=== PATIENT | female | born 1965 | race Caucasian/White ===

== ENCOUNTER 2019-09-03 04:11 | Emergency (ER) | payer SELFPAY ==
--- NOTE | 2019-09-03 06:09 | RADIOLOGY REPORT (SQ) ---
EXAM DESCRIPTION: X-ray two view chest. CLINICAL HISTORY: 53 years Female, cough, SOB COMPARISON: 03/26/2013 TECHNIQUE: PA and Lateral views of the chest performed on 09/03/2019 at 5:22 AM FINDINGS: The lungs are well expanded and are clear. The costophrenic sulci are clear. There is no evidence of a pneumothorax. The cardiac silhouette is normal in size. The mediastinal contours are normal. No acute osseous abnormalities are identified. No focal soft tissue abnormalities are identified. IMPRESSION: No evidence of acute intrathoracic disease.
[2019-09-03] MEDS ORDERED: BENZONATATE 100 MG CAPSULE PO ONE (06:31)
[2019-09-03 06:44] VITALS: BP 152/90
--- NOTE | 2019-09-03 06:44 | EKG REPORT ---
SEVERITY:- NORMAL ECG - SINUS RHYTHM : Confirmed by: Eugene Ann MD 03-Sep-2019 06:43:50
--- NOTE | 2019-09-03 14:52 | ER Document Report ---
Entered by MADDIE CAMPOS SCRIBE 09/03/19 0625 Acting as scribe for:ROSE MARIE MIKE MD ED General - General Chief Complaint: Shortness Of Breath Stated Complaint: TROUBLE BREATHING Time Seen by Provider: 09/03/19 05:10 Primary Care Provider: SANA HINES JR, PA [Primary Care Provider] - Follow up as needed Mode of Arrival: Ambulatory Information source: Patient, [facility] Records Notes: This 53 year old female patient presents to the ED today with complaints of shortness of breath since x1 day ago. Patient reports associated reproducible ch est pain and productive cough. Patient states that she brought up yellow-brown phlegm when she coughed once yesterday. Patient has not received a flu vaccine this year. TRAVEL OUTSIDE OF THE [place] IN LAST 30 DAYS: No - Related Data Allergies/Adverse Reactions: iodine [Iodine] Allergy (Severe, Verified 08/22/13 17:08) Sulfa (Sulfonamide Antibiotics) Allergy (Severe, Verified 08/22/13 17:08) Home Medications: albuterol inhaler. estrogen Past Medical History - General Information source: Patient, [facility] Records - Social History Smoking Status: Never Smoker Cigarette use (# per day): No Frequency of alcohol use: Occasional Family History: Reviewed & Not Pertinent Patient has suicidal ideation: No Patient has homicidal ideation: No Pulmonary Medical History: Reports: Hx Bronchitis - Asthmatic Broncitis occasionally, Hx Pneumonia Neurological Medical History: Reports: Hx Migraine Psychiatric Medical History: Reports: Hx Depression Past Surgical History: Reports: Hx Hysterectomy, Hx Orthopedic Surgery - Ankle - Immunizations Hx Diphtheria, Pertussis, Tetanus Vaccination: Yes Hx Pneumococcal Vaccination: 06/22/10 Review of Systems - Review of Systems Constitutional: No symptoms reported EENT: No symptoms reported Cardiovascular: See HPI, Chest pain - reproducible Respiratory: See HPI, Short of breath Gastrointestinal: No symptoms reported Genitourinary: No symptoms reported Female Genitourinary: No symptoms reported Musculoskeletal: No symptoms reported Skin: No symptoms reported Hematologic/Lymphatic: No symptoms reported Neurological/Psychological: No symptoms reported -: Yes All other systems reviewed and negative Physical Exam - Vital signs Vitals: Temp Pulse BP Pulse Ox 97.9 F 97 164/91 H 97 09/03/19 04:28 09/03/19 04:28 09/03/19 04:28 09/03/19 04:28 - General General appearance: Alert In distress: None - HEENT Head: Normocephalic, Atraumatic Eyes: Normal Pupils: PERRL - Respiratory Respiratory status: No respiratory distress Chest status: Tender - anterior chest wall tenderness with palpation Breath sounds: Rhonchi. No: Wheezing Chest palpation: Normal - Cardiovascular Rhythm: Regular Heart sounds: Normal auscultation Murmur: No - Abdominal Inspection: Normal Distension: No distension Bowel sounds: Normal Tenderness: Nontender Organomegaly: No organomegaly - Back Back: Normal, Nontender - Extremities General upper extremity: Normal inspection General lower extremity: Normal inspection - Neurological Neuro grossly intact: Yes - Psychological Associated symptoms: Normal affect, Normal mood - Skin Skin Temperature: Warm Skin Moisture: Dry Skin Color: Normal Course - Vital Signs Vital signs: Temp Pulse Resp BP Pulse Ox 98.0 F 90 17 152/90 H 97 09/03/19 06:43 09/03/19 06:43 09/03/19 06:43 09/03/19 06:43 09/03/19 06:43 Discharge - Discharge Clinical Impression: Viral upper respiratory tract infection with cough Condition: Stable Disposition: HOME, SELF-CARE Additional Instructions: Upper Respiratory Illness You have a viral infection of the respiratory passages -- a "cold." This common infection causes nasal congestion, drainage, and often sore throat and cough. It is caused by a virus and is highly contagious. The disease usually lasts 2 weeks or more, though the worst symptoms are usually over in 3 or 4 days. There is no "cure" for the viral infection -- it must run its course. If there is a complication, such as bacterial infection in the nose, sinuses, middle ear, or bronchial tubes, antibiotics may be required, but antibiotics won't affect the virus. If you smoke, you should STOP!! Drink plenty of fluids. A humidifier may help. An expectorant medication or decongestant may make you more comfortable. Use acetaminophen or ibuprofen for fever or aches. See the doctor if fever persists over two or three days, if there is any significant worsening of your symptoms, or if you simply fail to improve as expected. High Blood Pressure When your blood pressure was taken today it was elevated. The patient has been informed that they may have pre-hypertension or Hypertension based on a blood pressure reading in the emergency department. I recommend that the patient call the primary care provider listed on their discharge instructions or a physician of their choice this week to arrange follow up for further evaluation of possible pre-hypertension or Hypertension. Sometimes, stress or illness causes a temporary elevation of your blood pressure. We suggest that you get your blood pressure measured three more times during the next few days to see if this is more than a temporary abnormality. If your blood pressure is greater than 150/90 on each occasion, you must have t reatment. Some simple things you can do to help are: If you have blood pressure medicine but aren't using it regularly, start taking it again. Get some aerobic exercise for at least 20 minutes on a daily basis. (See your doctor before beginning a new exercise program.) Eat a low-fat diet. Lose excess weight. Avoid salty foods and avoid adding salt to any of the foods you eat. Avoid diet pills, decongestants, "energizing" herbs, and other medicines that elevate blood pressure. If left untreated, hypertension greatly enhances your risk for developing heart disease and strokes. Please don't ignore this problem. Take the Tessalon Perles as prescribed to help control your cough. Additionally, try the generic version of Delsym DM to help suppress your cough. That medication also contains something similar to Mucinex to help loosen up mucus. Drink plenty of fluids and get plenty of rest. Take Tylenol and ibuprofen for any fevers, aches or pains. Your blood pressure was elevated today. That may be due to the stress of illness, or you may have high blood pressure. You should check your blood pressure regularly for the next several days and if it remains elevated, then you should see your primary care provider to discuss treatment. Follow-up with your primary care provider if your upper respiratory tract infection symptoms are not improving, or if your blood pressure stays elevated. RETURN TO THE EMERGENCY ROOM IF ANY NEW OR WORSENING SYMPTOMS. Prescriptions: Benzonatate [Tessalon Perles 100 mg Capsule] 100 mg PO ASDIR PRN #30 capsule PRN Reason: Referrals: FLORA SHAFER,EMMIE HODO [Primary Care Provider] - Follow up as needed Scribe Attestation: 09/03/19 06:26 I personally performed the services described in the documentation, reviewed and edited the documentation which was dictated to the scribe in my presence, and it accurately records my words and actions. I personally performed the services described in the documentation, reviewed and edited the documentation which was dictated to the scribe in my presence, and it accurately records my words and actions.
== END 2019-09-03 06:44 | disposition home or self-care (01) ==
LOC: ER 04:11
DX: J06.9 Acute upper respiratory infection, unspecified (principal); R06.02 Shortness of breath; R07.9 Chest pain, unspecified; Z88.2 Allergy status to sulfonamides; Z90.710 Acquired absence of both cervix and uterus
CPT/HCPCS: 71046; 93005; 93010; 99283

== ENCOUNTER 2019-09-23 19:04 | Inpatient (IN) | payer OTHER ==
[2019-09-23 19:38] LABS: ABSOLUTE LYMPHOCYTES (AUTO) 1.8 10^3/uL (0.5-4.7); ABSOLUTE MONOCYTES (AUTO) 0.7 10^3/uL (0.1-1.4); ABSOLUTE NEUT (AUTO) 6.7 10^3/uL (1.7-8.2); BASOPHILS % (AUTO) 0.5 % (0-2); EOSINOPHILS % (AUTO) 0.3 % (0-6); HEMATOCRIT 38.9 % (36.0-47.0); HEMOGLOBIN 13.5 g/dL (12.0-15.5); LYMPHOCYTES % (AUTO) 19.9 % (13-45); MEAN CORPUSCULAR HEMOGLOBIN 35.7 pg (27.0-33.4); MEAN CORPUSCULAR HGB CONC 34.6 g/dL (32.0-36.0); MEAN CORPUSCULAR VOLUME 103 fl (80-97); MONOCYTES % (AUTO) 7.2 % (3-13); PLATELET COUNT 211 10^3/uL (150-450); RED BLOOD COUNT 3.77 10^6/uL (3.72-5.28); SEGMENTED NEUTROPHILS % (AUTO) 72.1 % (42-78); TOTAL CELLS COUNTED % (AUTO) 100 %; WHITE BLOOD COUNT 9.3 10^3/uL (4.0-10.5)
--- NOTE | 2019-09-23 19:43 | ER Document Report ---
ED Medical Screen (RME) - General Chief Complaint: Vomiting Stated Complaint: VOMITING Time Seen by Provider: 09/23/19 19:38 Primary Care Provider: SANA HINES JR, PA [Primary Care Provider] - Follow up as needed Mode of Arrival: Medic Information source: Patient Notes: Patient presents emergency department via EMS for complaints of vomiting all day. She reports symptoms started 0500 this morning. She did go next-door to her neighbors to ask her to take her to the emergency department. Upon arrival to her neighbor her neighbor said she could barely speak she was having trouble breathing so they gave her 3 breathing treatments. Denies fever although tyrel cabrera feels like she is hot. She reports she did not receive the flu vaccine. She denies chest pain. I have greeted and performed a rapid initial assessment of this patient. A comprehensive ED assessment and evaluation of the patient, analysis of test results and completion of the medical decision making process will be conducted by additional ED providers. TRAVEL OUTSIDE OF THE [place] IN LAST 30 DAYS: No - Related Data Allergies/Adverse Reactions: iodine [Iodine] Allergy (Severe, Verified 08/22/13 17:08) Sulfa (Sulfonamide Antibiotics) Allergy (Severe, Verified 08/22/13 17:08) Past Medical History - Past Medical History Cardiac Medical History: Denies: Hx Coronary Artery Disease, Hx Heart Attack, Hx Hypertension Pulmonary Medical History: Reports: Hx Bronchitis - Asthmatic Broncitis occasionally, Hx Pneumonia Denies: Hx Asthma, Hx COPD Neurological Medical History: Reports: Hx Migraine. Denies: Hx Cerebrovascular Accident, Hx Seizures Musculoskeltal Medical History: Denies Hx Arthritis Psychiatric Medical History: Reports: Hx Depression Past Surgical History: Reports: Hx Hysterectomy, Hx Orthopedic Surgery - Ankle. Denies: Hx Pacemaker - Immunizations Hx Diphtheria, Pertussis, Tetanus Vaccination: Yes Course - Laboratory Result Diagrams: 09/23/19 19:15 09/23/19 19:15 Laboratory results interpreted by me: 09/23/19 19:15 MCV 103 H MCH 35.7 H Doctor's Discharge - Discharge Referrals: SANA HINES JR, PA [Primary Care Provider] - Follow up as needed
[2019-09-23 20:01] LABS: ALBUMIN 3.4 g/dL (3.5-5.0); ALKALINE PHOSPHATASE 238 U/L (38-126); ANION GAP 17 (5-19); ASPARTATE AMINO TRANSFERASE 198 U/L (14-36); BILIRUBIN,DIRECT 0.3 mg/dL (0.0-0.4); BILIRUBIN,TOTAL 0.8 mg/dL (0.2-1.3); BLOOD UREA NITROGEN 11 mg/dL (7-20); CALCIUM 8.2 mg/dL (8.4-10.2); CARBON DIOXIDE 18 mmol/L (22-30); CHLORIDE 97 mmol/L (98-107); GLUCOSE 120 mg/dL (75-110); TOTAL PROTEIN 6.5 g/dL (6.3-8.2)
--- NOTE | 2019-09-23 20:52 | RADIOLOGY REPORT (SQ) ---
EXAM DESCRIPTION: CLINICAL HISTORY: 53 years Female, cough COMPARISON: 09/03/2019. FINDINGS: Cardiomediastinal silhouette is not enlarged. No suspicious acute lung pleural bone abnormalities. IMPRESSION: No acute findings.
[2019-09-23] MEDS ORDERED: NORMAL SALINE 1000 ML 1,000 ML with POTASSIUM CHLORIDE 20 MEQ, MAGNESIUM SULFATE 8 MEQ,... IV PRN ×5 (21:06)
[2019-09-23] MEDS ORDERED: METOCLOPRAMIDE HCL INJ/PF 10 MG/2 ML SDV IV ONE (21:11)
[2019-09-23 21:16] LABS: INTERNATIONAL RATION (INR) 0.97; PROTHROMBIN TIME 12.9 SEC (11.4-15.4)
[2019-09-23 21:17] LABS: PARTIAL THROMBOPLASTIN TIME 31.1 SEC (23.5-35.8)
[2019-09-23] MEDS ORDERED: LORAZEPAM INJ 2 MG/1 ML VIAL IV ONE ×2 (21:18→22:46)
--- NOTE | 2019-09-23 21:18 | ER Document Report ---
ED General - General Chief Complaint: Vomiting Stated Complaint: VOMITING Time Seen by Provider: 09/23/19 19:38 Primary Care Provider: SANA HINES JR, PA [NO LOCAL MD] - Follow up as needed Mode of Arrival: Medic TRAVEL OUTSIDE OF THE [place] IN LAST 30 DAYS: No - HPI Notes: This is a 89-[id number]-year-old female with multiple prior visits here for manjinder ulises now presenting with a chief complaint of vomiting for the last 12 hours associated with rapid heart rate, persistent nausea, generalized weakness, muscle cramping and shortness of breath. She was evasive when I asked her about recent alcohol consumption but says she is not had anything to drink today. She denies any drug abuse. She states she is a non-smoker. She reports a remote history of treatment for DVT but is not currently on any type of anticoagulant medication. She denies any prior history of PE. She denies any cardiac history. She denies fever. She denies sputum production. She denies hemoptysis. Patient denies any suicidal/homicidal ideation. She denies hallucinations. - Related Data Allergies/Adverse Reactions: iodine [Iodine] Allergy (Severe, Verified 08/22/13 17:08) Sulfa (Sulfonamide Antibiotics) Allergy (Severe, Verified 08/22/13 17:08) Home Medications: estrogen Past Medical History - General Information source: Patient - Social History Smoking Status: Current Some Day Smoker Chew tobacco use (# tins/day): No Frequency of alcohol use: Heavy Drug Abuse: None Family History: Reviewed & Not Pertinent Patient has suicidal ideation: No Patient has homicidal ideation: No - Past Medical History Cardiac Medical History: Denies: Hx Coronary Artery Disease, Hx Heart Attack, Hx Hypertension Pulmonary Medical History: Reports: Hx Bronchitis - Asthmatic Broncitis occasionally, Hx Pneumonia Denies: Hx Asthma, Hx COPD Neurological Medical History: Reports: Hx Migraine. Denies: Hx Cerebrovascular Accident, Hx Seizures Musculoskeletal Medical History: Denies Hx Arthritis Psychiatric Medical History: Reports: Hx Depression, Other - History of alcohol abuse Past Surgical History: Reports: Hx Hysterectomy, Hx Orthopedic Surgery - Ankle. Denies: Hx Pacemaker - Immunizations Hx Diphtheria, Pertussis, Tetanus Vaccination: Yes Hx Pneumococcal Vaccination: 06/22/10 Review of Systems - Review of Systems Notes: Constitutional: Negative for fever. HENT: Negative for sore throat. Eyes: Negative for visual changes. Cardiovascular: Negative for chest pain. Respiratory: As per HPI. Gastrointestinal: As per HPI. Genitourinary: Negative for dysuria. Musculoskeletal: As per HPI. Skin: Negative for rash. Neurological: Anxious. 10 point ROS negative except as marked above and in HPI. Physical Exam - Vital signs Vitals: Resp BP Pulse Ox 22 H 143/79 H 97 09/23/19 20:25 09/23/19 20:25 09/23/19 20:25 - Notes Notes: GENERAL: Female patient approximately stated age who appears tremulous and anxious. SKIN: Good turgor no rashes. HEAD: Normocephalic atraumatic. EYES: PERRLA. EOMI. Conjunctivae and sclerae clear. EARS: CANALS AND TMS CLEAR. NOSE: CLEAR. MOUTH: Moist mucosa. Good dentition. No stridor or edema. No drooling. NECK: Supple. No masses or thyromegaly. No adenopathy. Carotids 2+ without bruits. No JVD. BACK: Symmetrical without tenderness. CHEST: Mildly tachypneic. No use of accessory muscles.. Breath sounds clear and symmetrical. HEART: Tachycardic. Regular rhythm. No murmur gallop or rub. ABDOMEN: Soft nontender without masses, organomegaly or rebound. Bowel sounds normally active. No bruits. GENITALIA: Deferred. EXTREMITIES: No edema. No calf tenderness. Cap refill less than 1.5 seconds. Dorsalis pedis and posterior tibial pulses 3+ and symmetrical. NEUROLOGICAL: Mild generalized tremor. GCS 15. Alert and oriented x3. Normal gait. Fluent speech. Cranial nerves II through XII intact. Sensorimotor and cerebellar normal. Normal tone. PSYCHIATRIC: Flat, anxious affect. Course - Re-evaluation Re-evalutation: 09/23/19 21:17 We going to get a d-dimer because of the history of DVT and tachycardia with associated shortness of breath today. This said, I think her current symptoms are probably due to metabolic depletion related to vomiting likely related to alcohol abuse. I am going to give her some Reglan and some Ativan IV and a banana bag. 09/23/19 22:47 Neighbor has arrived and informs me that the patient has been drinking in excess of 1 pint of vodka per day for quite some time. Blood alcohol currently is 90. She is tremulous is still complaining of muscular cramping. IV infiltrated is being restarted so that she can get the banana bag as previously ordered. I will give her some additional Ativan. We also note that she has an elevated d- dimer approximately 3.5. We will get a CTA of the chest to rule out PE. I talked with her about possibly going back in the detox and she is very much opposed to this right now. 09/23/19 22:59 Patient now reports that she has severe allergy to IV contrast and has had anaphylaxis with this in the past. Because of this she would require greater than 24-hour steroid protocol before we can get a CTA for her. We do not have ability to do a V/Q here tonight. Unable to go ahead and empirically treat her with Lovenox subcu 1 mg/kg. Situation is discussed with on-call hospitalist, Dr. Abel Piña, who agrees to admit the patient to MICU at this time and can continue to treat her metabolic disturbance and alcohol withdrawal as well. - Vital Signs Vital signs: Temp Pulse Resp BP Pulse Ox 22 H 143/79 H 97 09/23/19 20:25 09/23/19 20:25 09/23/19 20:25 - Laboratory Result Diagrams: 09/23/19 19:15 09/23/19 19:15 Laboratory results interpreted by me: 09/23/19 09/23/19 09/23/19 19:15 19:15 19:15 MCV 103 H MCH 35.7 H D-Dimer Sodium 131.7 L Potassium 3.0 L* Chloride 97 L Carbon Dioxide 18 L Glucose 120 H Calcium 8.2 L AST 198 H Alkaline Phosphatase 238 H Albumin 3.4 L Lipase 1017.0 H Urine Protein Urine Ketones Salicylates Acetaminophen 09/23/19 09/23/19 09/23/19 19:15 19:15 21:29 MCV MCH D-Dimer 3.47 H Sodium Potassium Chloride Carbon Dioxide Glucose Calcium AST Alkaline Phosphatase Albumin Lipase Urine Protein 30 H Urine Ketones TRACE H Salicylates < 1.0 L Acetaminophen < 10 L - Diagnostic Test Radiology reviewed: Reports reviewed Radiology results interpreted by me: 09/23/19 21:20 Radiologist reports no active disease on 2 view chest. - EKG Interpretation by Me Additional EKG results interpreted by me: 09/23/19 21:19 EKG shows a sinus tachycardia with a rate of 109. There is some tremor artifact. Normal axis. No acute changes are appreciated otherwise. Discharge - Discharge Clinical Impression: Hypokalemia Alcohol withdrawal syndrome Qualifiers: Complication of substance-induced condition: with unspecified complication Qualified Code(s): F10.239 - Alcohol dependence with withdrawal, unspecified Dyspnea Qualifiers: Dyspnea type: unspecified Qualified Code(s): R06.00 - Dyspnea, unspecified Disposition: ADMITTED INPATIENT Admitting Provider: Wang (Hospitalist) Unit Admitted: IMCU Referrals: SANA HINES JR, PA [NO LOCAL MD] - Follow up as needed
[2019-09-23 21:44] LABS: ALCOHOL 93 mg/dL (NONE DETECTED)
[2019-09-23 21:47] LABS: ACETAMINOPHEN < 10 ug/mL (10-30); SALICYLATE < 1.0 mg/dL (2.0-20.0)
[2019-09-23 22:14] LABS: APPEARANCE,URINE SLIGHTLY-CLOUDY; BILIRUBIN,URINE NEGATIVE (NEGATIVE); COLOR,URINE YELLOW; GLUCOSE, URINE NEGATIVE (NEGATIVE); KETONES,URINE TRACE mg/dL (NEGATIVE); LEUKOCYTE ESTERASE,URINE NEGATIVE (NEGATIVE); NITRITE,URINE NEGATIVE (NEGATIVE); PROTEIN,URINE 30 mg/dL (NEGATIVE); URINE SPECIFIC GRAVITY 1.018; UROBILINOGEN,URINE NEGATIVE mg/dL (<2.0)
[2019-09-23 22:22] LABS: URINE AMPHETAMINES SCREEN NEGATIVE; URINE BARBITURATES SCREEN NEGATIVE; URINE BENZODIAZEPINES SCREEN NEGATIVE; URINE COCAINE SCREEN NEGATIVE; URINE MARIJUANA (THC) SCREEN NEGATIVE; URINE METHADONE SCREEN NEGATIVE; URINE PHENCYCLIDINE SCREEN NEGATIVE
[2019-09-23] MEDS ORDERED: IPRATROPIUM/ALBUTEROL 0.5-2.5 MG/3 ML AMPUL NEB PRN (22:56)
[2019-09-23] MEDS ORDERED: ENOXAPARIN SODIUM INJ 100 MG/1 ML DISP.SYRIN SUBCUT ONE ×2 (22:56→23:30)
[2019-09-23] MEDS ORDERED: DIAZEPAM INJ 10 MG/2 ML DISP.SYRIN IV ONE (23:30)
[2019-09-23] MEDS: POTASSI CL 20 MEQ/50 ML RIDER 20 MEQ/50 ML RTUPB IV SCH (23:58)
[2019-09-24] MEDS: IPRATROPIUM/ALBUTEROL 0.5-2.5 MG/3 ML AMPUL NEB SCH ×3 (00:13→16:48)
[2019-09-24] MEDS: POTASSI CL 20 MEQ/50 ML RIDER 20 MEQ/50 ML RTUPB IV SCH (01:58)
[2019-09-24 03:40] LABS: A TYPE INFLUENZA AG NEGATIVE (NEGATIVE); B INFLUENZA AG NEGATIVE (NEGATIVE)
[2019-09-24] MEDS: NORMAL SALINE 1000 ML 1,000 ML IV PRN ×2 (04:36→10:49)
--- NOTE | 2019-09-24 05:29 | PDOC H&P ---
History of Present Illness Admission Date/PCP: 09/23/19 23:03 LIZY ESCOBAR Patient complains of: Nausea and vomiting History of Present Illness: RUDDY PAN is a 53 year old female with a past medical history of tobacco, depression, bronchitis, COPD and alcoholism presents with 12 hours of palpitations, weakness, muscle cramping, shortness of breath, nausea and vomiting. She admits to 2 pints of alcohol per day labs reveal lipase over thousand, hypokalemia, microcytic anemia, elevated LFTs and an alcohol level of 93 and an elevated d-dimer. She receives Lovenox, thiamine and Ativan. Patient is allergic to IV contrast, V/Q scan is ordered but unavailable. She denies pain. And referred to the hospitalist for admission. Past Medical History Cardiac Medical History: Denies: Coronary Artery Disease, Myocardial Infarction, Hypertension Pulmonary Medical History: Reports: Bronchitis - Asthmatic Broncitis occasionally, Chronic Obstructive Pulmonary Disease (COPD), Pneumonia Denies: Asthma Neurological Medical History: Reports: Migraine Denies: Seizures Musculoskeltal Medical History: Denies: Arthritis Psychiatric Medical History: Reports: Alcohol Dependency, Depression, Tobacco Dependency, Other - History of alcohol abuse Hematology: Denies: Anemia Past Surgical History Past Surgical History: Reports: Hysterectomy, Orthopedic Surgery - Ankle Denies: Pacemaker Social History Information Source: Patient, [facility] Records Smoking Status: Current Some Day Smoker Electronic Cigarette use?: No Frequency of Alcohol Use: Heavy Drugs: None - Advance Directive Resuscitation Status: Full Code Family History Family History: COPD Parental Family History Reviewed: Yes Children Family History Reviewed: Yes Sibling(s) Family History Reviewed.: Yes Medication/Allergy Home Medications: Divalproex Sodium [Depakote Er 500 Mg Tab.Sr] 1,000 mg PO QHS 10/31/11 Topiramate [Topamax 100 Mg Tablet] 100 mg PO QHS 10/31/11 Bupropion HCl [Budeprion Xl] 300 mg PO DAILY 07/15/12 Citalopram Hydrobromide [Celexa 20 Mg Tablet] 40 mg PO DAILY 07/15/12 Zolpidem Tartrate 10 mg PO QHS PRN 07/15/12 Estrogens,Conjugated [Premarin 0.625 Mg Tablet] 0.625 mg PO DAILY 08/19/12 Benzonatate [Tessalon Perles 100 mg Capsule] 100 mg PO ASDIR PRN #30 capsule 09/03/19 Allergies/Adverse Reactions: iodine [Iodine] Allergy (Severe, Verified 08/22/13 17:08) Sulfa (Sulfonamide Antibiotics) Allergy (Severe, Verified 08/22/13 17:08) Review of Systems Constitutional: ABSENT: chills, fever(s), headache(s), weight gain, weight loss Eyes: ABSENT: visual disturbances Ears: ABSENT: hearing changes Cardiovascular: ABSENT: chest pain, dyspnea on exertion, edema, orthropnea, palpitations Respiratory: ABSENT: cough, hemoptysis Gastrointestinal: ABSENT: abdominal pain, constipation, diarrhea, hematemesis, hematochezia, nausea, vomiting Genitourinary: ABSENT: dysuria, hematuria Musculoskeletal: ABSENT: joint swelling Integumentary: ABSENT: rash, wounds Neurological: ABSENT: abnormal gait, abnormal speech, confusion, dizziness, focal weakness, syncope Psychiatric: ABSENT: anxiety, depression, homidical ideation, suicidal ideation Endocrine: ABSENT: cold intolerance, heat intolerance, polydipsia, polyuria Hematologic/Lymphatic: ABSENT: easy bleeding, easy bruising Physical Exam Vital Signs: Temp Pulse Resp BP Pulse Ox 18 135/95 H 99 09/24/19 04:03 09/24/19 04:03 09/24/19 04:03 Intake & Output 09/22/19 09/23/19 09/24/19 11:59 11:59 11:59 Intake Total 1113 Balance 1113 Weight 96.7 kg General appearance: PRESENT: no acute distress, well-developed, well-nourished Head exam: PRESENT: atraumatic, normocephalic Eye exam: PRESENT: conjunctiva pink, EOMI, PERRLA. ABSENT: scleral icterus Ear exam: PRESENT: normal external ear exam Mouth exam: PRESENT: moist, tongue midline Neck exam: ABSENT: carotid bruit, JVD, lymphadenopathy, thyromegaly Respiratory exam: PRESENT: clear to auscultation [place]. ABSENT: rales, rhonchi, wheezes Cardiovascular exam: PRESENT: RRR. ABSENT: diastolic murmur, rubs, systolic murmur Pulses: PRESENT: normal dorsalis pedis pul Vascular exam: PRESENT: normal capillary refill GI/Abdominal exam: PRESENT: normal bowel sounds, soft, tenderness - Epigastric tenderness without guarding. ABSENT: distended, guarding, mass, organolmegaly, rebound Rectal exam: PRESENT: deferred Extremities exam: PRESENT: full ROM. ABSENT: calf tenderness, clubbing, pedal edema Neurological exam: PRESENT: alert, awake, oriented to person, oriented to place, oriented to time, oriented to situation, CN II-XII grossly intact. ABSENT: motor sensory deficit Psychiatric exam: PRESENT: appropriate affect, normal mood. ABSENT: homicidal ideation, suicidal ideation Skin exam: PRESENT: dry, intact, warm. ABSENT: cyanosis, rash Results Laboratory Results: 09/23/19 19:15 09/23/19 19:15 09/23/19 09/23/19 09/23/19 19:15 19:15 19:15 WBC 9.3 RBC 3.77 Hgb 13.5 Hct 38.9 MCV 103 H MCH 35.7 H MCHC 34.6 RDW 14.0 Plt Count 211 Seg Neutrophils % 72.1 Sodium 131.7 L Potassium 3.0 L* Chloride 97 L Carbon Dioxide 18 L Anion Gap 17 BUN 11 Creatinine 0.59 Est GFR ( Amer) > 60 Glucose 120 H Calcium 8.2 L Magnesium Total Bilirubin 0.8 AST 198 H Alkaline Phosphatase 238 H Total Protein 6.5 Albumin 3.4 L Lipase 1017.0 H Urine Color Urine Appearance Urine pH Ur Specific [place] Urine Protein Urine Glucose (UA) Urine Ketones Urine Blood Urine Nitrite Ur Leukocyte Esterase Urine WBC (Auto) Urine RBC (Auto) 09/23/19 09/23/19 19:15 21:29 WBC RBC Hgb Hct MCV MCH MCHC RDW Plt Count Seg Neutrophils % Sodium Potassium Chloride Carbon Dioxide Anion Gap BUN Creatinine Est GFR ( Amer) Glucose Calcium Magnesium 1.8 Total Bilirubin AST Alkaline Phosphatase Total Protein Albumin Lipase Urine Color YELLOW Urine Appearance SLIGHTLY-CLOUDY Urine pH 5.0 Ur Specific [place] 1.018 Urine Protein 30 H Urine Glucose (UA) NEGATIVE Urine Ketones TRACE H Urine Blood NEGATIVE Urine Nitrite NEGATIVE Ur Leukocyte Esterase NEGATIVE Urine WBC (Auto) 6 Urine RBC (Auto) 2 09/23/19 09/24/19 19:15 01:05 Troponin I < 0.012 < 0.012 Impressions: Chest X-Ray 09/23/19 19:42 IMPRESSION: No acute findings. Assessment and Plan - Diagnosis (1) Pulmonary emboli Is this a current diagnosis for this admission?: Yes Plan: History of DVT, hemodynamically stable, empiric Lovenox, follow-up VQ scan (2) Alcohol withdrawal syndrome Qualifiers: Complication of substance-induced condition: with unspecified complication Qualified Code(s): F10.239 - Alcohol dependence with withdrawal, unspecified Is this a current diagnosis for this admission?: Yes Plan: Thiamine, folate, Ativan as needed, consider discharge planning consult for rehab. (3) Dyspnea Qualifiers: Dyspnea type: unspecified Qualified Code(s): R06.00 - Dyspnea, unspecified Is this a current diagnosis for this admission?: Yes Plan: Bronchitis versus pulmonary emboli. Supplemental oxygen, albuterol, Atrovent, incentive spirometry, Lovenox ordered. (4) Pancreatitis Is this a current diagnosis for this admission?: Yes Plan: Secondary to alcohol, bowel rest, symptomatic management, education - Time Time Spent with patient: 25-34 minutes - Inpatient Certification Medical Necessity: Need Close Monitoring Due to Risk of Patient Decompensation
[2019-09-24] MEDS: DIAZEPAM INJ 10 MG/2 ML DISP.SYRIN IV SCH ×3 (07:42→22:43)
--- NOTE | 2019-09-24 08:28 | EKG REPORT ---
SEVERITY:- BORDERLINE ECG - SINUS TACHYCARDIA PROBABLE LEFT ATRIAL ABNORMALITY : Confirmed by: Eugene Ann MD 24-Sep-2019 08:28:13
--- NOTE | 2019-09-24 08:39 | PDOC PROGRESS REPORT ---
Subjective Progress Note for:: 09/24/19 Subjective:: 53 year old female with a past medical history of tobacco, depression, bronchitis, COPD and alcoholism presents with 12 hours of palpitations, weakness, muscle cramping, shortness of breath, nausea and vomiting. She admits to 2 pints of alcohol per day labs reveal lipase over thousand, hypokalemia, microcytic anemia, elevated LFTs and an alcohol level of 93 and an elevated d- dimer. She receives Lovenox, thiamine and Ativan. Patient is allergic to IV contrast, V/Q scan is ordered but unavailable. She denies pain. And referred to the hospitalist for admission. 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 Patient is still in the ER and complaining of cramping of the legs and wants to eat. No other acute events. Reason For Visit: PE, ALCOHOL WD Physical Exam Vital Signs: Temp Pulse Resp BP Pulse Ox 18 135/95 H 99 09/24/19 04:03 09/24/19 04:03 09/24/19 04:03 Intake & Output 09/23/19 09/24/19 09/25/19 06:59 06:59 06:59 Intake Total 1113 Balance 1113 Weight 96.7 kg General appearance: PRESENT: no acute distress, obese Head exam: PRESENT: atraumatic Eye exam: PRESENT: PERRLA Mouth exam: PRESENT: moist, tongue midline Teeth exam: PRESENT: poor dentation Neck exam: ABSENT: carotid bruit, JVD, lymphadenopathy, thyromegaly Respiratory exam: PRESENT: decreased breath sounds Cardiovascular exam: PRESENT: RRR. ABSENT: diastolic murmur, rubs, systolic murmur GI/Abdominal exam: PRESENT: normal bowel sounds, soft. ABSENT: distended, guarding, mass, organolmegaly, rebound, tenderness Rectal exam: PRESENT: deferred Extremities exam: PRESENT: full ROM. ABSENT: calf tenderness, clubbing, pedal edema Neurological exam: PRESENT: alert, awake, oriented to person, oriented to place, oriented to time, oriented to situation, CN II-XII grossly intact. ABSENT: motor sensory deficit Psychiatric exam: PRESENT: appropriate affect, normal mood. ABSENT: homicidal ideation, suicidal ideation Results Laboratory Results: 09/23/19 19:15 09/23/19 19:15 09/23/19 09/23/19 09/23/19 19:15 19:15 19:15 WBC 9.3 RBC 3.77 Hgb 13.5 Hct 38.9 MCV 103 H MCH 35.7 H MCHC 34.6 RDW 14.0 Plt Count 211 Seg Neutrophils % 72.1 Sodium 131.7 L Potassium 3.0 L* Chloride 97 L Carbon Dioxide 18 L Anion Gap 17 BUN 11 Creatinine 0.59 Est GFR ( Amer) > 60 Glucose 120 H Calcium 8.2 L Magnesium Total Bilirubin 0.8 AST 198 H Alkaline Phosphatase 238 H Total Protein 6.5 Albumin 3.4 L Lipase 1017.0 H Urine Color Urine Appearance Urine pH Ur Specific [place] Urine Protein Urine Glucose (UA) Urine Ketones Urine Blood Urine Nitrite Ur Leukocyte Esterase Urine WBC (Auto) Urine RBC (Auto) 09/23/19 09/23/19 19:15 21:29 WBC RBC Hgb Hct MCV MCH MCHC RDW Plt Count Seg Neutrophils % Sodium Potassium Chloride Carbon Dioxide Anion Gap BUN Creatinine Est GFR ( Amer) Glucose Calcium Magnesium 1.8 Total Bilirubin AST Alkaline Phosphatase Total Protein Albumin Lipase Urine Color YELLOW Urine Appearance SLIGHTLY-CLOUDY Urine pH 5.0 Ur Specific [place] 1.018 Urine Protein 30 H Urine Glucose (UA) NEGATIVE Urine Ketones TRACE H Urine Blood NEGATIVE Urine Nitrite NEGATIVE Ur Leukocyte Esterase NEGATIVE Urine WBC (Auto) 6 Urine RBC (Auto) 2 09/23/19 09/24/19 19:15 01:05 Troponin I < 0.012 < 0.012 Impressions: Chest X-Ray 09/23/19 19:42 IMPRESSION: No acute findings. Assessment and Plan - Diagnosis (1) Alcohol withdrawal syndrome Qualifiers: Complication of substance-induced condition: with unspecified complication Qualified Code(s): F10.239 - Alcohol dependence with withdrawal, unspecified Is this a current diagnosis for this admission?: Yes Plan: Thiamine, folate, Ativan as needed, consider discharge planning consult for rehab. 09/24/2019 patient admitted drinking yesterday. Presently on thiamine, folic acid, Ativan PRN. To watch for the DTs. (2) Dyspnea Qualifiers: Dyspnea type: unspecified Qualified Code(s): R06.00 - Dyspnea, unspecified Is this a current diagnosis for this admission?: Yes Plan: Bronchitis versus pulmonary emboli. Supplemental oxygen, albuterol, Atrovent, incentive spirometry, Lovenox ordered. 09/24/2019 patient admitted with shortness of breath and elevated d-dimer VQ scan is pending. Pulse ox is 99% at room air this morning. (3) Pancreatitis Is this a current diagnosis for this admission?: Yes Plan: Secondary to alcohol, bowel rest, symptomatic management, education 09/24/2019 patient admitted drinking yesterday. Daily day drinker. Lipase is more than thousand. Presently on IV fluids and pain medications. Plan is to check the lipase levels tomorrow. (4) Pulmonary emboli Is this a current diagnosis for this admission?: Yes Plan: History of DVT, hemodynamically stable, empiric Lovenox, follow-up VQ scan 09/24/2019 patient has history of DVT admitted with shortness of breath and elevated d-dimer VQ scan pending. Venous Doppler will be requested. Patient is on treatment dose of Lovenox. (5) Hypokalemia Is this a current diagnosis for this admission?: Yes Plan: 09/24/2019 serum potassium is 3.0 to give p.o. potassium 40 mg 1 dose. To recheck the labs tomorrow. Hyperkalemia most likely secondary to poor oral intake secondary to pancreatitis. (6) Obesity (BMI 30.0-34.9) Is this a current diagnosis for this admission?: No Plan: 10/21/2019-BMI is more than 32 diet exercise weight loss lifestyle modifications discussed with the patient.
[2019-09-24] MEDS ORDERED: POTASSIUM CHLORIDE 10 MEQ TABLET.ER PO ONE (09:00)
[2019-09-24 09:14] LABS: ABSOLUTE LYMPHOCYTES (AUTO) 1.3 10^3/uL (0.5-4.7); ABSOLUTE MONOCYTES (AUTO) 0.5 10^3/uL (0.1-1.4); ABSOLUTE NEUT (AUTO) 7.7 10^3/uL (1.7-8.2); BASOPHILS % (AUTO) 0.2 % (0-2); EOSINOPHILS % (AUTO) 0.4 % (0-6); HEMATOCRIT 35.7 % (36.0-47.0); HEMOGLOBIN 12.6 g/dL (12.0-15.5); LYMPHOCYTES % (AUTO) 13.6 % (13-45); MEAN CORPUSCULAR HEMOGLOBIN 36.6 pg (27.0-33.4); MEAN CORPUSCULAR HGB CONC 35.3 g/dL (32.0-36.0); MEAN CORPUSCULAR VOLUME 104 fl (80-97); PLATELET COUNT 168 10^3/uL (150-450); RED BLOOD COUNT 3.44 10^6/uL (3.72-5.28); RED CELL DISTRIBUTION WIDTH 14.1 % (11.5-14.0); SEGMENTED NEUTROPHILS % (AUTO) 80.8 % (42-78); TOTAL CELLS COUNTED % (AUTO) 100 %; WHITE BLOOD COUNT 9.5 10^3/uL (4.0-10.5)
[2019-09-24 09:34] LABS: ANION GAP 9 (5-19); BLOOD UREA NITROGEN 10 mg/dL (7-20); CALCIUM 7.6 mg/dL (8.4-10.2); CARBON DIOXIDE 20 mmol/L (22-30); CHLORIDE 105 mmol/L (98-107); GLUCOSE 109 mg/dL (75-110); POTASSIUM 3.3 mmol/L (3.6-5.0)
[2019-09-24] MEDS ORDERED: ENOXAPARIN SODIUM INJ 100 MG/1 ML DISP.SYRIN SUBCUT SCH (10:00)
[2019-09-24] MEDS: THIAMINE HCL 100 MG, FOLIC ACID 1 MG in NORMAL SALINE 250 ML IV SCH (10:50)
[2019-09-24] MEDS: LORAZEPAM INJ 2 MG/1 ML VIAL IV PRN (10:50)
[2019-09-24] MEDS ORDERED: ONDANSETRON HCL INJ/PF 4 MG/2 ML SDV IV PRN (11:13)
--- NOTE | 2019-09-24 13:33 | RADIOLOGY REPORT (SQ) ---
EXAM DESCRIPTION: NM LUNG VENT/PERF SCAN COMPLETED DATE/TIME: 09/24/2019 1:11 pm REASON FOR STUDY: DVT, SOB COMPARISON: CHEST FILM 09/23/2019 BILATERAL LOWER EXTREMITY VENOUS DOPPLER 09/24/2019 RADIONUCLIDE AND DOSE: 5.4 millicuries TC-99m MAA Intravenous 31.6 millicuries TC-99m DTPA Inhaled aerosol TECHNIQUE: Eight views of the lungs acquired post ventilation of DTPA aerosol. Eight matching views of the lungs acquired following injection of MAA. LIMITATIONS: None. FINDINGS: VENTILATION: Symmetric and homogeneous distribution of DTPA aerosol during ventilatory pha se. No significant areas of photopenia. PERFUSION: Perfusion images with normal homogenous activity and no wedge-shaped or segmental defects. No ventilation-perfusion mismatches. OTHER: No other significant finding. IMPRESSION: NORMAL VENTILATION-PERFUSION LUNG SCAN. NEGATIVE FOR PULMONARY EMBOLI. TECHNICAL DOCUMENTATION: JOB ID: [id number] [employer]- All Rights Reserved Reading location - IP/workstation name: [id number]
--- NOTE | 2019-09-24 13:34 | RADIOLOGY REPORT (SQ) ---
EXAM DESCRIPTION: VENOUS BILATERAL LOWER COMPLETED DATE/TIME: 09/24/2019 1:14 pm REASON FOR STUDY: dvt chest pain, short of breath COMPARISON: None. TECHNIQUE: Dynamic and static renteria scale and color images acquired of both lower extremity venous sy stems. Selected spectral images acquired with additional compression and augmentation maneuvers. Imag es stored on PACS. LIMITATIONS: None. FINDINGS: RIGHT LEG COMMON FEMORAL AND FEMORAL: Normal phasicity, compression and augmentation. No visualized echogenic m aterial on renteria scale. No defects on color images. POPLITEAL: Normal compression and augmentation. No visualized echogenic material on renteria scale. No de fects on color images. CALF VESSELS: Normal compression and augmentation. No visualized echogenic material on renteria scale. No defects on color image. GSV AND SSV: Normal compression. No visualized echogenic material on renteria scale. No defects on color images. ANY DEEP VENOUS INSUFFICIENCY: Not evaluated. ANY EVIDENCE OF POPLITEAL CYST: No. OTHER: No other significant finding. LEFT LEG COMMON FEMORAL AND FEMORAL: Normal phasicity, compression and augmentation. No visualized echogenic m aterial on renteria scale. No defects on color images. POPLITEAL: Normal compression and augmentation. No visualized echogenic material on renteria scale. No de fects on color images. CALF VESSELS: Normal compression and augmentation. No visualized echogenic material on renteria scale. No defects on color images. GSV AND SSV: Normal compression. No visualized echogenic material on renteria scale. No defects on color images. ANY DEEP VENOUS INSUFFICIENCY: Not evaluated. ANY EVIDENCE POPLITEAL CYST: No. OTHER: No other significant finding. IMPRESSION: NO EVIDENCE DVT OR SVT IN EITHER LEG. TECHNICAL DOCUMENTATION: JOB ID: [id number]- All Rights Reserved Reading location - IP/workstation name: [id number]
[2019-09-24] MEDS: HEPARIN SOD (PORCINE) 5,000 UNIT/ML 1 ML VIAL SUBCUT SCH (22:41)
[2019-09-24] MEDS: ZOLPIDEM TARTRATE 5 MG TABLET PO SCH (22:41)
[2019-09-25] MEDS: IPRATROPIUM/ALBUTEROL 0.5-2.5 MG/3 ML AMPUL NEB SCH ×3 (00:58→16:17)
[2019-09-25] MEDS: HEPARIN SOD (PORCINE) 5,000 UNIT/ML 1 ML VIAL SUBCUT SCH ×3 (06:19→21:07)
[2019-09-25] MEDS: DIAZEPAM INJ 10 MG/2 ML DISP.SYRIN IV SCH ×3 (06:19→21:08)
--- NOTE | 2019-09-25 09:00 | PDOC PROGRESS REPORT ---
Subjective Progress Note for:: 09/25/19 Subjective:: 53 year old female with a past medical history of tobacco, depression, bronchitis, COPD and alcoholism presents with 12 hours of palpitations, weakness, muscle cramping, shortness of breath, nausea and vomiting. She admits to 2 pints of alcohol per day labs reveal lipase over thousand, hypokalemia, microcytic anemia, elevated LFTs and an alcohol level of 93 and an elevated d- dimer. She receives Lovenox, thiamine and Ativan. Patient is allergic to IV contrast, V/Q scan is ordered but unavailable. She denies pain. And referred to the hospitalist for admission. 09/[id number] female with history of DVT, alcohol abuse admitted with elevated lipase levels elevated d-dimer scheduled for scan because patient is allergic to contrast and a DVT studies will be requested. Patient is still in the ER and complaining of cramping of the legs and wants to eat. No other acute events. 09/25/[id number]-pckx-old female with history of DVT, alcohol abuse admitted with elevated lipase levels and elevated d-dimer levels. DVT studies are negative for DVT and VQ scan is negative for PE. Lipase level is 1000 at the time of admission plan is to repeat the labs today. No acute events in the last 24 hours. Afebrile. Patient is complaining of a bruise in the left flank and requesting heat pad. Reason For Visit: PE, ALCOHOL WD Physical Exam Vital Signs: Temp Pulse Resp BP Pulse Ox 97.5 F 98 16 146/89 H 99 09/25/19 07:29 09/25/19 07:29 09/25/19 07:29 09/25/19 07:29 09/25/19 07:29 Intake & Output 09/24/19 09/25/19 09/26/19 06:59 06:59 06:59 Intake Total 1113 1531.2 Output Total 0 Balance 1113 1531.2 Weight 96.7 kg 107.9 kg General appearance: PRESENT: no acute distress, obese Head exam: PRESENT: atraumatic Eye exam: PRESENT: PERRLA Mouth exam: PRESENT: moist, tongue midline Teeth exam: PRESENT: poor dentation Neck exam: ABSENT: carotid bruit, JVD, lymphadenopathy, thyromegaly Respiratory exam: PRESENT: decreased breath sounds Cardiovascular exam: PRESENT: RRR. ABSENT: diastolic murmur, rubs, systolic murmur Pulses: PRESENT: normal dorsalis pedis pul GI/Abdominal exam: PRESENT: normal bowel sounds, soft. ABSENT: distended, guarding, mass, organolmegaly, rebound, tenderness Rectal exam: PRESENT: deferred Neurological exam: PRESENT: alert, awake, oriented to person, oriented to place, oriented to time, oriented to situation, CN II-XII grossly intact. ABSENT: motor sensory deficit Psychiatric exam: PRESENT: appropriate affect, normal mood. ABSENT: homicidal ideation, suicidal ideation Skin exam: PRESENT: abrasion Results Laboratory Results: 09/24/19 08:53 09/24/19 08:53 09/24/19 09/24/19 08:53 08:53 WBC 9.5 RBC 3.44 L Hgb 12.6 Hct 35.7 L MCV 104 H MCH 36.6 H MCHC 35.3 RDW 14.1 H Plt Count 168 Seg Neutrophils % 80.8 H Sodium 133.6 L Potassium 3.3 L Chloride 105 Carbon Dioxide 20 L Anion Gap 9 BUN 10 Creatinine 0.45 L Est GFR ( Amer) > 60 Glucose 109 Calcium 7.6 L 09/23/19 09/24/19 09/24/19 19:15 01:05 08:53 Troponin I < 0.012 < 0.012 < 0.012 09/24/19 13:25 Troponin I < 0.012 Impressions: Chest X-Ray 09/23/19 19:42 IMPRESSION: No acute findings. Lung Scan-VQ NM 09/24/19 00:00 IMPRESSION: NORMAL VENTILATION-PERFUSION LUNG SCAN. NEGATIVE FOR PULMONARY EMBOLI. Venous Doppler Study 09/24/19 00:00 IMPRESSION: NO EVIDENCE DVT OR SVT IN EITHER LEG. Assessment and Plan - Diagnosis (1) Alcohol withdrawal syndrome Qualifiers: Complication of substance-induced condition: with unspecified complication Qualified Code(s): F10.239 - Alcohol dependence with withdrawal, unspecified Is this a current diagnosis for this admission?: Yes Plan: Thiamine, folate, Ativan as needed, consider discharge planning consult for rehab. 09/24/2019 patient admitted drinking yesterday. Presently on thiamine, folic acid, Ativan PRN. To watch for the DTs. 2019 patient has history of alcohol abuse. Receiving thiamine, folic acid, Ativan PRN. To watch for DTs. No acute events in the last 24 hours. (2) Dyspnea Qualifiers: Dyspnea type: unspecified Qualified Code(s): R06.00 - Dyspnea, unspecified Is this a current diagnosis for this admission?: Yes Plan: Bronchitis versus pulmonary emboli. Supplemental oxygen, albuterol, Atrovent, incentive spirometry, Lovenox ordered. 09/24/2019 patient admitted with shortness of breath and elevated d-dimer VQ scan is pending. Pulse ox is 99% at room air this morning. 09/25/2019 patient admitted with shortness of breath. VQ scan is negative. Pulse ox today is 99% on room air. Comfortably in the bed not in distress. Plan is to continue albuterol and Atrovent nebulizations. pt is afebrile. (3) Pancreatitis Is this a current diagnosis for this admission?: Yes Plan: Secondary to alcohol, bowel rest, symptomatic management, education 09/24/2019 patient admitted drinking yesterday. Daily day drinker. Lipase is more than thousand. Presently on IV fluids and pain medications. Plan is to check the lipase levels tomorrow. 09/25/2019 1 patient has history of alcohol abuse. Admitted with elevated lipase levels of 1000. Repeat labs are pending. Presently on clear liquids , plan is to continue clear liquid diet for today. (4) Pulmonary emboli Is this a current diagnosis for this admission?: Yes Plan: History of DVT, hemodynamically stable, empiric Lovenox, follow-up VQ scan 09/24/2019 patient has history of DVT admitted with shortness of breath and elevated d-dimer VQ scan pending. Venous Doppler will be requested. Patient is on treatment dose of Lovenox. 01/10/2020 patient has history of DVT and a venous Doppler was done of the bilateral legs during this hospital stay came back negative for blood clots. VQ scan also negative for PE. Currently on prophylactic dose of heparin 5000 units subcu every 8 hours. (5) Hypokalemia Is this a current diagnosis for this admission?: Yes Plan: 09/24/2019 serum potassium is 3.0 to give p.o. potassium 40 mg 1 dose. To recheck the labs tomorrow. Hyperkalemia most likely secondary to poor oral intake secondary to pancreatitis. 09/25/2019 patient is admitted with hypokalemia and today's labs are pending. Patient is receiving potassium supplementations on a as needed basis. (6) Obesity (BMI 30.0-34.9) Is this a current diagnosis for this admission?: No
[2019-09-25 09:25] LABS: ABSOLUTE EOSINOPHILS # (AUTO) 0.4 10^3/uL (0.0-0.6); ABSOLUTE LYMPHOCYTES (AUTO) 1.2 10^3/uL (0.5-4.7); ABSOLUTE MONOCYTES (AUTO) 0.4 10^3/uL (0.1-1.4); ABSOLUTE NEUT (AUTO) 6.5 10^3/uL (1.7-8.2); BASOPHILS % (AUTO) 0.3 % (0-2); EOSINOPHILS % (AUTO) 4.7 % (0-6); HEMATOCRIT 37.6 % (36.0-47.0); MEAN CORPUSCULAR HEMOGLOBIN 36.3 pg (27.0-33.4); MEAN CORPUSCULAR HGB CONC 34.6 g/dL (32.0-36.0); MEAN CORPUSCULAR VOLUME 105 fl (80-97); MONOCYTES % (AUTO) 5.1 % (3-13); PLATELET COUNT 156 10^3/uL (150-450); RED BLOOD COUNT 3.59 10^6/uL (3.72-5.28); RED CELL DISTRIBUTION WIDTH 14.3 % (11.5-14.0); SEGMENTED NEUTROPHILS % (AUTO) 75.9 % (42-78); TOTAL CELLS COUNTED % (AUTO) 100 %; WHITE BLOOD COUNT 8.6 10^3/uL (4.0-10.5)
[2019-09-25 09:50] LABS: APPEARANCE,URINE CLOUDY; BILIRUBIN,URINE NEGATIVE (NEGATIVE); COLOR,URINE AMBER; GLUCOSE, URINE NEGATIVE (NEGATIVE); KETONES,URINE 20 mg/dL (NEGATIVE); LEUKOCYTE ESTERASE,URINE TRACE (NEGATIVE); NITRITE,URINE NEGATIVE (NEGATIVE); PROTEIN,URINE 30 mg/dL (NEGATIVE); URINE SPECIFIC GRAVITY 1.016; UROBILINOGEN,URINE NEGATIVE mg/dL (<2.0)
[2019-09-25 09:51] LABS: ALBUMIN 3.2 g/dL (3.5-5.0); ALKALINE PHOSPHATASE 230 U/L (38-126); ANION GAP 11 (5-19); ASPARTATE AMINO TRANSFERASE 176 U/L (14-36); BILIRUBIN,DIRECT 0.4 mg/dL (0.0-0.4); BILIRUBIN,TOTAL 0.7 mg/dL (0.2-1.3); BLOOD UREA NITROGEN 8 mg/dL (7-20); CALCIUM 8.2 mg/dL (8.4-10.2); CARBON DIOXIDE 21 mmol/L (22-30); CHLORIDE 104 mmol/L (98-107); GLUCOSE 81 mg/dL (75-110); POTASSIUM 3.2 mmol/L (3.6-5.0); TOTAL PROTEIN 6.6 g/dL (6.3-8.2)
[2019-09-25] MEDS: THIAMINE HCL 100 MG, FOLIC ACID 1 MG in NORMAL SALINE 250 ML IV SCH (09:58)
[2019-09-25] MEDS: LORAZEPAM INJ 2 MG/1 ML VIAL IV PRN ×3 (09:58→22:54)
[2019-09-25] MEDS ORDERED: (PENDING PHARMACY ID) (Estradiol [Estradiol] 1 MG) PO SCH (10:00)
[2019-09-25] MEDS ORDERED: POTASSIUM CHLORIDE 10 MEQ TABLET.ER PO ONE (14:00)
[2019-09-25] MEDS: DIPHENOXYLATE HCL/ATROP SULF 2.5-0.025 MG TABLET PO PRN ×2 (14:19→21:02)
[2019-09-25] MEDS: SUMATRIPTAN SUCCINATE 50 MG TABLET PO PRN (14:19)
[2019-09-25] MEDS: ZOLPIDEM TARTRATE 5 MG TABLET PO SCH (21:08)
[2019-09-26] MEDS: IPRATROPIUM/ALBUTEROL 0.5-2.5 MG/3 ML AMPUL NEB SCH ×3 (00:43→15:55)
[2019-09-26] MEDS: ACETAMINOPHEN 325 MG TABLET PO PRN (00:58)
[2019-09-26] MEDS: LORAZEPAM INJ 2 MG/1 ML VIAL IV PRN ×4 (00:59→20:56)
[2019-09-26] MEDS: DIAZEPAM INJ 10 MG/2 ML DISP.SYRIN IV SCH ×3 (05:15→22:10)
[2019-09-26] MEDS: HEPARIN SOD (PORCINE) 5,000 UNIT/ML 1 ML VIAL SUBCUT SCH ×3 (05:15→22:10)
[2019-09-26 09:03] LABS: ABSOLUTE EOSINOPHILS # (AUTO) 0.3 10^3/uL (0.0-0.6); ABSOLUTE LYMPHOCYTES (AUTO) 1.3 10^3/uL (0.5-4.7); ABSOLUTE MONOCYTES (AUTO) 0.6 10^3/uL (0.1-1.4); ABSOLUTE NEUT (AUTO) 7.2 10^3/uL (1.7-8.2); BASOPHILS % (AUTO) 0.3 % (0-2); EOSINOPHILS % (AUTO) 2.9 % (0-6); HEMATOCRIT 33.8 % (36.0-47.0); HEMOGLOBIN 11.7 g/dL (12.0-15.5); LYMPHOCYTES % (AUTO) 13.7 % (13-45); MEAN CORPUSCULAR HEMOGLOBIN 35.9 pg (27.0-33.4); MEAN CORPUSCULAR HGB CONC 34.5 g/dL (32.0-36.0); MEAN CORPUSCULAR VOLUME 104 fl (80-97); MONOCYTES % (AUTO) 6.3 % (3-13); PLATELET COUNT 139 10^3/uL (150-450); RED BLOOD COUNT 3.25 10^6/uL (3.72-5.28); SEGMENTED NEUTROPHILS % (AUTO) 76.8 % (42-78); TOTAL CELLS COUNTED % (AUTO) 100 %; WHITE BLOOD COUNT 9.4 10^3/uL (4.0-10.5)
[2019-09-26 09:19] LABS: ALBUMIN 2.9 g/dL (3.5-5.0); ALKALINE PHOSPHATASE 207 U/L (38-126); ANION GAP 9 (5-19); ASPARTATE AMINO TRANSFERASE 119 U/L (14-36); BILIRUBIN,DIRECT 0.4 mg/dL (0.0-0.4); BILIRUBIN,TOTAL 0.6 mg/dL (0.2-1.3); BLOOD UREA NITROGEN 6 mg/dL (7-20); CALCIUM 8.2 mg/dL (8.4-10.2); CARBON DIOXIDE 23 mmol/L (22-30); CHLORIDE 104 mmol/L (98-107); GLUCOSE 82 mg/dL (75-110); POTASSIUM 3.1 mmol/L (3.6-5.0); TOTAL PROTEIN 5.8 g/dL (6.3-8.2)
--- NOTE | 2019-09-26 09:20 | PDOC PROGRESS REPORT ---
Subjective Progress Note for:: 09/26/19 Subjective:: 53 year old female with a past medical history of tobacco, depression, bronchitis, COPD and alcoholism presents with 12 hours of palpitations, weakness, muscle cramping, shortness of breath, nausea and vomiting. She admits to 2 pints of alcohol per day labs reveal lipase over thousand, hypokalemia, microcytic anemia, elevated LFTs and an alcohol level of 93 and an elevated d- dimer. She receives Lovenox, thiamine and Ativan. Patient is allergic to IV contrast, V/Q scan is ordered but unavailable. She denies pain. And referred to the hospitalist for admission. 09/[id number] female with history of DVT, alcohol abuse admitted with elevated lipase levels elevated d-dimer scheduled for scan because patient is allergic to contrast and a DVT studies will be requested. Patient is still in the ER and complaining of cramping of the legs and wants to eat. No other acute events. 09/25/[id number]-[id number]-old female with history of DVT, alcohol abuse admitted with elevated lipase levels and elevated d-dimer levels. DVT studies are negative for DVT and VQ scan is negative for PE. Lipase level is 1000 at the time of admission plan is to repeat the labs today. No acute events in the last 24 hours. Afebrile. Patient is complaining of a bruise in the left flank and requesting heat pad. 09/26/2019 53-year-old female with history of DVT admitted for elevated lipase levels elevated d-dimer levels DVT studies are negative PE studies are negative for blood clots and lipase went up to 2560 yesterday. Patient is on clear liquid diet. Today's labs are pending. Patient is more agitated last night requiring increased frequency of IV Ativan. Comfortable in the bed this morning sleeping woke up on calling communicating well. No other complaints. Reason For Visit: PE, ALCOHOL WD Physical Exam Vital Signs: Temp Pulse Resp BP Pulse Ox 98.2 F 106 H 16 132/67 H 97 09/26/19 08:13 09/26/19 08:13 09/26/19 08:13 09/26/19 08:13 09/26/19 08:13 Intake & Output 09/25/19 09/26/19 09/27/19 06:59 06:59 06:59 Intake Total 1531.2 4331.2 Output Total 0 Balance 1531.2 4331.2 Weight 107.9 kg 107.4 kg General appearance: PRESENT: no acute distress, obese Head exam: PRESENT: atraumatic Eye exam: PRESENT: PERRLA Mouth exam: PRESENT: moist, tongue midline Teeth exam: PRESENT: poor dentation Neck exam: ABSENT: carotid bruit, JVD, lymphadenopathy, thyromegaly Respiratory exam: PRESENT: clear to auscultation [place]. ABSENT: rales, rhonchi, wheezes Cardiovascular exam: PRESENT: RRR. ABSENT: diastolic murmur, rubs, systolic [place] GI/Abdominal exam: PRESENT: normal bowel sounds, soft. ABSENT: distended, guarding, mass, organolmegaly, rebound, tenderness Rectal exam: PRESENT: deferred Extremities exam: PRESENT: full ROM. ABSENT: calf tenderness, clubbing, pedal edema Neurological exam: PRESENT: alert, awake, oriented to person, oriented to place, oriented to time, oriented to situation, CN II-XII grossly intact. ABSENT: motor sensory deficit Psychiatric exam: PRESENT: appropriate affect, normal mood. ABSENT: homicidal ideation, suicidal ideation Results Laboratory Results: 09/26/19 08:16 09/24/19 09/25/19 09/25/19 09:15 09:03 09:03 WBC 8.6 RBC 3.59 L Hgb 13.0 Hct 37.6 MCV 105 H MCH 36.3 H MCHC 34.6 RDW 14.3 H Plt Count 156 Seg Neutrophils % 75.9 Sodium 136.2 L Potassium 3.2 L Chloride 104 Carbon Dioxide 21 L Anion Gap 11 BUN 8 Creatinine 0.51 L Est GFR ( Amer) > 60 Glucose 81 Calcium 8.2 L Magnesium 2.2 Total Bilirubin 0.7 AST 176 H Alkaline Phosphatase 230 H Total Protein 6.6 Albumin 3.2 L Lipase 2561.1 H Urine Color TAYLOR Urine Appearance CLOUDY Urine pH 6.0 Ur Specific [place] 1.016 Urine Protein 30 H Urine Glucose (UA) NEGATIVE Urine Ketones 20 H Urine Blood NEGATIVE Urine Nitrite NEGATIVE Ur Leukocyte Esterase TRACE H Urine WBC (Auto) 3 Urine RBC (Auto) 1 09/26/19 08:16 WBC 9.4 RBC 3.25 L Hgb 11.7 L Hct 33.8 L MCV 104 H MCH 35.9 H MCHC 34.5 RDW 14.0 Plt Count 139 L Seg Neutrophils % 76.8 Sodium Potassium Chloride Carbon Dioxide Anion Gap BUN Creatinine Est GFR ( Amer) Glucose Calcium Magnesium Total Bilirubin AST Alkaline Phosphatase Total Protein Albumin Lipase Urine Color Urine Appearance Urine pH Ur Specific [place] Urine Protein Urine Glucose (UA) Urine Ketones Urine Blood Urine Nitrite Ur Leukocyte Esterase Urine WBC (Auto) Urine RBC (Auto) 09/23/19 09/24/19 09/24/19 19:15 01:05 08:53 Troponin I < 0.012 < 0.012 < 0.012 09/24/19 13:25 Troponin I < 0.012 Impressions: Chest X-Ray 09/23/19 19:42 IMPRESSION: No acute findings. Lung Scan-VQ NM 09/24/19 00:00 IMPRESSION: NORMAL VENTILATION-PERFUSION LUNG SCAN. NEGATIVE FOR PULMONARY EMBOLI. Venous Doppler Study 09/24/19 00:00 IMPRESSION: NO EVIDENCE DVT OR SVT IN EITHER LEG. Assessment and Plan - Diagnosis (1) Alcohol withdrawal syndrome Qualifiers: Complication of substance-induced condition: with unspecified complication Qualified Code(s): F10.239 - Alcohol dependence with withdrawal, unspecified Is this a current diagnosis for this admission?: Yes Plan: Thiamine, folate, Ativan as needed, consider discharge planning consult for rehab. 09/24/2019 patient admitted drinking yesterday. Presently on thiamine, folic acid, Ativan PRN. To watch for the DTs. 2019 patient has history of alcohol abuse. Receiving thiamine, folic acid, Ativan PRN. To watch for DTs. No acute events in the last 24 hours. 09/26/19-patient has history of alcohol abuse came in with a lipase level of thousand went up to 2560 today. Patient is on a clear liquid diet. Today's lipase levels are pending. Patient denies any abdominal pains today. (2) Dyspnea Qualifiers: Dyspnea type: unspecified Qualified Code(s): R06.00 - Dyspnea, unspecified Is this a current diagnosis for this admission?: Yes Plan: Bronchitis versus pulmonary emboli. Supplemental oxygen, albuterol, Atrovent, incentive spirometry, Lovenox ordered. 09/24/2019 patient admitted with shortness of breath and elevated d-dimer VQ scan is pending. Pulse ox is 99% at room air this morning. 09/25/2019 patient admitted with shortness of breath. VQ scan is negative. Pulse ox today is 99% on room air. Comfortably in the bed not in distress. Plan is to continue albuterol and Atrovent nebulizations. pt is afebrile. 09/26/2019-patient came in with complaints of increasing shortness of breath, VQ scan is negative for PE. Pulse ox is 98% on room air today. (3) Pancreatitis Is this a current diagnosis for this admission?: Yes Plan: Secondary to alcohol, bowel rest, symptomatic management, education 09/24/2019 patient admitted drinking yesterday. Daily day drinker. Lipase is more than thousand. Presently on IV fluids and pain medications. Plan is to check the lipase levels tomorrow. 09/25/2019 1 patient has history of alcohol abuse. Admitted with elevated lipase levels of 1000. Repeat labs are pending. Presently on clear liquids , plan is to continue clear liquid diet for today. 09/26/2019 patient is on clear liquid diet today latest lipase level is 2560, repeat lipase levels today are pending. Plan to keep her on clear liquid diet for today. (4) Pulmonary emboli Is this a current diagnosis for this admission?: Yes Plan: History of DVT, hemodynamically stable, empiric Lovenox, follow-up VQ scan 09/24/2019 patient has history of DVT admitted with shortness of breath and elevated d-dimer VQ scan pending. Venous Doppler will be requested. Patient is on treatment dose of Lovenox. 01/10/2020 patient has history of DVT and a venous Doppler was done of the bilateral legs during this hospital stay came back negative for blood clots. VQ scan also negative for PE. Currently on prophylactic dose of heparin 5000 units subcu every 8 hours. (5) Hypokalemia Is this a current diagnosis for this admission?: Yes Plan: 09/24/2019 serum potassium is 3.0 to give p.o. potassium 40 mg 1 dose. To recheck the labs tomorrow. Hyperkalemia most likely secondary to poor oral intake secondary to pancreatitis. 09/25/2019 patient is admitted with hypokalemia and today's labs are pending. Patient is receiving potassium supplementations on a as needed basis. (6) Obesity (BMI 30.0-34.9) Is this a current diagnosis for this admission?: No
[2019-09-26] MEDS: THIAMINE HCL 100 MG, FOLIC ACID 1 MG in NORMAL SALINE 250 ML IV SCH (09:59)
[2019-09-26] MEDS: DIPHENOXYLATE HCL/ATROP SULF 2.5-0.025 MG TABLET PO PRN ×2 (09:59→16:29)
[2019-09-26] MEDS: LOPERAMIDE HCL 2 MG CAPSULE PO PRN (20:56)
[2019-09-26] MEDS: ZOLPIDEM TARTRATE 5 MG TABLET PO SCH (22:10)
[2019-09-27] MEDS: IPRATROPIUM/ALBUTEROL 0.5-2.5 MG/3 ML AMPUL NEB SCH ×4 (00:17→23:58)
[2019-09-27] MEDS: DIPHENOXYLATE HCL/ATROP SULF 2.5-0.025 MG TABLET PO PRN ×4 (00:33→22:02)
[2019-09-27] MEDS: ACETAMINOPHEN 325 MG TABLET PO PRN (01:10)
[2019-09-27] MEDS: HEPARIN SOD (PORCINE) 5,000 UNIT/ML 1 ML VIAL SUBCUT SCH ×3 (06:53→21:53)
[2019-09-27] MEDS: DIAZEPAM INJ 10 MG/2 ML DISP.SYRIN IV SCH ×4 (06:53→21:53)
[2019-09-27] MEDS ORDERED: POTASSIUM CHLORIDE 10 MEQ TABLET.ER PO ONE (08:00)
[2019-09-27] MEDS: LIPASE/PROTEASE/AMYLASE 1 CAP CAPSULE.DR PO SCH ×2 (08:11→15:55)
[2019-09-27] MEDS: THIAMINE HCL 100 MG, FOLIC ACID 1 MG in NORMAL SALINE 250 ML IV SCH (09:29)
[2019-09-27] MEDS: LORAZEPAM INJ 2 MG/1 ML VIAL IV PRN (09:29)
[2019-09-27] MEDS: LOPERAMIDE HCL 2 MG CAPSULE PO PRN ×2 (09:29→15:55)
--- NOTE | 2019-09-27 09:35 | PDOC PROGRESS REPORT ---
Subjective Progress Note for:: 09/27/19 Subjective:: 53 year old female with a past medical history of tobacco, depression, bronchitis, COPD and alcoholism presents with 12 hours of palpitations, weakness, muscle cramping, shortness of breath, nausea and vomiting. She admits to 2 pints of alcohol per day labs reveal lipase over thousand, hypokalemia, microcytic anemia, elevated LFTs and an alcohol level of 93 and an elevated d- dimer. She receives Lovenox, thiamine and Ativan. Patient is allergic to IV contrast, V/Q scan is ordered but unavailable. She denies pain. And referred to the hospitalist for admission. 09/[id number] female with history of DVT, alcohol abuse admitted with elevated lipase levels elevated d-dimer scheduled for scan because patient is allergic to contrast and a DVT studies will be requested. Patient is still in the ER and complaining of cramping of the legs and wants to eat. No other acute events. 09/25/[id number]-tbbv-old female with history of DVT, alcohol abuse admitted with elevated lipase levels and elevated d-dimer levels. DVT studies are negative for DVT and VQ scan is negative for PE. Lipase level is 1000 at the time of admission plan is to repeat the labs today. No acute events in the last 24 hours. Afebrile. Patient is complaining of a bruise in the left flank and requesting heat pad. 09/26/2019 53-year-old female with history of DVT admitted for elevated lipase levels elevated d-dimer levels DVT studies are negative PE studies are negative for blood clots and lipase went up to 2560 yesterday. Patient is on clear liquid diet. Today's labs are pending. Patient is more agitated last night requiring increased frequency of IV Ativan. Comfortable in the bed this morning sleeping woke up on calling communicating well. No other complaints. 09/27/[id number] female admitted with elevated D-dimers and shortness of breath DVT studies are negative CT of the chest was negative for PE. Also has history of chronic alcohol abuse admitted with elevated lipase levels. Presently on full liquid diet latest lipase is 1698. Started on Pancrease tablets 10 mg twice a day and to give potassium supplementation today. She is receiving both Lomotil and Imodium for loose stools. It may be secondary to pancreatitis. Reason For Visit: PE, ALCOHOL WD Physical Exam Vital Signs: Temp Pulse Resp BP Pulse Ox 98.0 F 89 22 H 121/63 98 09/27/19 04:01 09/27/19 07:50 09/27/19 07:50 09/27/19 04:01 09/27/19 07:50 Intake & Output 09/26/19 09/27/19 09/28/19 06:59 06:59 06:59 Intake Total 4331.2 1571.2 Balance 4331.2 1571.2 Weight 107.4 kg 106.3 kg General appearance: PRESENT: no acute distress, obese Head exam: PRESENT: atraumatic Eye exam: PRESENT: PERRLA Mouth exam: PRESENT: neck supple Teeth exam: PRESENT: poor dentation Neck exam: ABSENT: carotid bruit, JVD, lymphadenopathy, thyromegaly Respiratory exam: PRESENT: clear to auscultation [place]. ABSENT: rales, rhonchi, wheezes Cardiovascular exam: PRESENT: RRR. ABSENT: diastolic murmur, rubs, systolic murmur GI/Abdominal exam: PRESENT: normal bowel sounds, soft. ABSENT: distended, guarding, mass, organolmegaly, rebound, tenderness Rectal exam: PRESENT: deferred Extremities exam: PRESENT: full ROM. ABSENT: calf tenderness, clubbing, pedal edema Neurological exam: PRESENT: alert, awake, oriented to person, oriented to place, oriented to time, oriented to situation, CN II-XII grossly intact. ABSENT: motor sensory deficit Psychiatric exam: PRESENT: appropriate affect, normal mood. ABSENT: homicidal ideation, suicidal ideation Results Laboratory Results: 09/26/19 08:16 09/26/19 08:16 09/26/19 09/27/19 08:16 07:50 Sodium 136.1 L Potassium 3.1 L Chloride 104 Carbon Dioxide 23 Anion Gap 9 BUN 6 L Creatinine 0.52 Est GFR ( Amer) > 60 Glucose 82 Calcium 8.2 L Magnesium 2.2 Total Bilirubin 0.6 AST 119 H Alkaline Phosphatase 207 H Total Protein 5.8 L Albumin 2.9 L Lipase 1334.1 H 1698.2 H 09/23/19 09/24/19 09/24/19 19:15 01:05 08:53 Troponin I < 0.012 < 0.012 < 0.012 09/24/19 13:25 Troponin I < 0.012 Impressions: Chest X-Ray 09/23/19 19:42 IMPRESSION: No acute findings. Lung Scan-VQ NM 09/24/19 00:00 IMPRESSION: NORMAL VENTILATION-PERFUSION LUNG SCAN. NEGATIVE FOR PULMONARY EMBOLI. Venous Doppler Study 09/24/19 00:00 IMPRESSION: NO EVIDENCE DVT OR SVT IN EITHER LEG. Assessment and Plan - Diagnosis (1) Alcohol withdrawal syndrome Qualifiers: Complication of substance-induced condition: with unspecified complication Qualified Code(s): F10.239 - Alcohol dependence with withdrawal, unspecified Is this a current diagnosis for this admission?: Yes Plan: Thiamine, folate, Ativan as needed, consider discharge planning consult for rehab. 09/24/2019 patient admitted drinking yesterday. Presently on thiamine, folic acid, Ativan PRN. To watch for the DTs. 2019 patient has history of alcohol abuse. Receiving thiamine, folic acid, Ativan PRN. To watch for DTs. No acute events in the last 24 hours. 09/26/19-patient has history of alcohol abuse came in with a lipase level of thousand went up to 2560 today. Patient is on a clear liquid diet. Today's lipase levels are pending. Patient denies any abdominal pains today. 09/27/2019-no DTs noticed so far. Patient is on IV Ativan PRN for agitation. latest lipase level is 1334,acute on chronic pancreatitis most likely secondary to alcohol abuse. (2) Dyspnea Qualifiers: Dyspnea type: unspecified Qualified Code(s): R06.00 - Dyspnea, unspecified Is this a current diagnosis for this admission?: Yes Plan: Bronchitis versus pulmonary emboli. Supplemental oxygen, albuterol, Atrovent, incentive spirometry, Lovenox ordered. 09/24/2019 patient admitted with shortness of breath and elevated d-dimer VQ scan is pending. Pulse ox is 99% at room air this morning. 09/25/2019 patient admitted with shortness of breath. VQ scan is negative. Pulse ox today is 99% on room air. Comfortably in the bed not in distress. Plan is to continue albuterol and Atrovent nebulizations. pt is afebrile. 09/26/2019-patient came in with complaints of increasing shortness of breath, VQ scan is negative for PE. Pulse ox is 98% on room air today. 09/27/19-patient came in with complaints of shortness of breath which was resolved. CT of the chest was negative for PE. (3) Pancreatitis Is this a current diagnosis for this admission?: Yes Plan: Secondary to alcohol, bowel rest, symptomatic management, education 09/24/2019 patient admitted drinking yesterday. Daily day drinker. Lipase is more than thousand. Presently on IV fluids and pain medications. Plan is to check the lipase levels tomorrow. 09/25/2019 1 patient has history of alcohol abuse. Admitted with elevated lipase levels of 1000. Repeat labs are pending. Presently on clear liquids , plan is to continue clear liquid diet for today. 09/26/2019 patient is on clear liquid diet today latest lipase level is 2560, repeat lipase levels today are pending. Plan to keep her on clear liquid diet for today. 09/27/2019-patient is presently on a full liquid diet latest lipase level is 1698. Plan is to continue the present management repeat the lipase levels tomorrow. (4) Pulmonary emboli Is this a current diagnosis for this admission?: Yes Plan: History of DVT, hemodynamically stable, empiric Lovenox, follow-up VQ scan 09/24/2019 patient has history of DVT admitted with shortness of breath and elevated d-dimer VQ scan pending. Venous Doppler will be requested. Patient is on treatment dose of Lovenox. 09/26/19 patient has history of DVT and a venous Doppler was done of the bilateral legs during this hospital stay came back negative for blood clots. VQ scan also negative for PE. Currently on prophylactic dose of heparin 5000 units subcu every 8 hours. 09/27/2019-patient admitted with shortness of breath PE is ruled out. (5) Hypokalemia Is this a current diagnosis for this admission?: Yes Plan: 09/24/2019 serum potassium is 3.0 to give p.o. potassium 40 mg 1 dose. To recheck the labs tomorrow. Hyperkalemia most likely secondary to poor oral intake secondary to pancreatitis. 09/25/2019 patient is admitted with hypokalemia and today's labs are pending. Patient is receiving potassium supplementations on a as needed basis. 09/27/2019-serum potassium is 3.1 today hypokalemia most likely secondary to persistent diarrhea secondary to chronic pancreatitis. (6) Obesity (BMI 30.0-34.9) Is this a current diagnosis for this admission?: No (7) Diarrhea Is this a current diagnosis for this admission?: Yes Plan: 09/27/2019-patient complaining of persistent diarrhea she receiving both Lomotil a nd Imodium. Started on pancreas tablets 10 mg p.o. twice daily. Persistent diarrhea may be secondary to malabsorption caused by acute on chronic pancreatitis.
[2019-09-27] MEDS: ZOLPIDEM TARTRATE 5 MG TABLET PO SCH (21:53)
[2019-09-28] MEDS: HEPARIN SOD (PORCINE) 5,000 UNIT/ML 1 ML VIAL SUBCUT SCH ×3 (05:23→21:56)
[2019-09-28] MEDS: DIAZEPAM INJ 10 MG/2 ML DISP.SYRIN IV SCH ×3 (05:44→22:52)
[2019-09-28] MEDS: SUMATRIPTAN SUCCINATE 50 MG TABLET PO PRN (05:50)
[2019-09-28] MEDS: IPRATROPIUM/ALBUTEROL 0.5-2.5 MG/3 ML AMPUL NEB SCH ×2 (09:11→16:37)
[2019-09-28] MEDS: THIAMINE HCL 100 MG, FOLIC ACID 1 MG in NORMAL SALINE 250 ML IV SCH (10:18)
[2019-09-28] MEDS: LIPASE/PROTEASE/AMYLASE 1 CAP CAPSULE.DR PO SCH ×2 (10:19→16:37)
[2019-09-28] MEDS: LOPERAMIDE HCL 2 MG CAPSULE PO PRN (10:22)
[2019-09-28] MEDS: LORAZEPAM INJ 2 MG/1 ML VIAL IV PRN ×2 (10:22→16:34)
[2019-09-28] MEDS: DIPHENOXYLATE HCL/ATROP SULF 2.5-0.025 MG TABLET PO PRN (13:36)
[2019-09-28] MEDS ORDERED: DEXTROSE 50%-WATER 25 GM/50 ML DISP.SYRIN IV PRN ×2 (13:44)
[2019-09-28] MEDS ORDERED: GLUCAGON,HUMAN RECOMB 1 MG INJ SUBCUT PRN (13:44)
[2019-09-28] MEDS ORDERED: DEXTROSE 40% GEL 15 GM TUBE PO PRN ×2 (13:44)
--- NOTE | 2019-09-28 13:47 | PDOC PROGRESS REPORT ---
Subjective Progress Note for:: 09/28/19 Subjective:: Patient reports feeling poorly again. Some epigastric discomfort as well as nausea. Reason For Visit: PE, ALCOHOL WD Physical Exam Vital Signs: Temp Pulse Resp BP Pulse Ox 97.9 F 85 16 126/73 H 97 09/28/19 12:06 09/28/19 12:06 09/28/19 12:06 09/28/19 12:06 09/28/19 12:06 Intake & Output 09/27/19 09/28/19 09/29/19 06:59 06:59 06:59 Intake Total 1571.2 1871.2 251.2 Balance 1571.2 1871.2 251.2 Weight 106.3 kg 107.2 kg General appearance: PRESENT: cooperative, mild distress, obese, well-developed Head exam: PRESENT: atraumatic, normocephalic Ear exam: PRESENT: normal external ear exam. ABSENT: bleeding, drainage Respiratory exam: PRESENT: clear to auscultation [place], symmetrical, unlabored. ABSENT: rales, rhonchi, tachypnea, wheezes Cardiovascular exam: PRESENT: RRR, +S1, +S2 GI/Abdominal exam: PRESENT: diminished bowel sounds, soft, tenderness - In the left of midline. No focal tenderness in the epigastric area. Rectal exam: PRESENT: deferred Extremities exam: PRESENT: pedal edema Musculoskeletal exam: PRESENT: normal inspection Neurological exam: PRESENT: alert, awake, oriented to person, oriented to place, oriented to situation, CN II-XII grossly intact Psychiatric exam: PRESENT: flat affect. ABSENT: agitated, anxious Results Laboratory Results: 09/26/19 08:16 09/26/19 08:16 09/28/19 04:26 Lipase 2109.4 H 09/23/19 09/24/19 09/24/19 19:15 01:05 08:53 Troponin I < 0.012 < 0.012 < 0.012 09/24/19 13:25 Troponin I < 0.012 Impressions: Chest X-Ray 09/23/19 19:42 IMPRESSION: No acute findings. Lung Scan-VQ NM 09/24/19 00:00 IMPRESSION: NORMAL VENTILATION-PERFUSION LUNG SCAN. NEGATIVE FOR PULMONARY EMBOLI. Venous Doppler Study 09/24/19 00:00 IMPRESSION: NO EVIDENCE DVT OR SVT IN EITHER LEG. Assessment and Plan - Diagnosis (1) Alcohol withdrawal syndrome Qualifiers: Complication of substance-induced condition: with unspecified complication Qualified Code(s): F10.239 - Alcohol dependence with withdrawal, unspecified Is this a current diagnosis for this admission?: Yes Plan: Continue benzodiazepine therapy and encourage alcohol cessation. (2) Dyspnea Qualifiers: Dyspnea type: unspecified Qualified Code(s): R06.00 - Dyspnea, unspecified Is this a current diagnosis for this admission?: Yes Plan: Etiology unknown. Resolved with conservative therapy. Pulmonary embolus was ruled out. (3) Pancreatitis Is this a current diagnosis for this admission?: Yes Plan: Secondary to alcoholism. Patient began an oral diet on September 26. Since then the lipase is increased. She will return to n.p.o. status. (4) Diarrhea Qualifiers: Diarrhea type: unspecified type Qualified Code(s): R19.7 - Diarrhea, u nspecified Is this a current diagnosis for this admission?: Yes Plan: Possibly related to the pancreatitis and alcohol withdrawal. Treat sympt omatically. (5) Hypokalemia Is this a current diagnosis for this admission?: Yes Plan: Patient is back to n.p.o. status. Supplement by IV (6) Pulmonary emboli Is this a current diagnosis for this admission?: No Plan: History of pulmonary embolus. Acute pulmonary embolus for this admission ruled out by VQ scan. Continue DVT prophylaxis but no long-term therapy at this time. (7) Obesity (BMI 30-39.9) Is this a current diagnosis for this admission?: Yes Plan: BMI is 35.9. Encourage weight loss. - Time Time Spent with patient: 15-24 minutes Medications reviewed and adjusted accordingly: Yes Anticipated discharge: Home
[2019-09-28] MEDS ORDERED: IBUPROFEN 600 MG TABLET PO PRN (18:36)
[2019-09-28] MEDS: ZOLPIDEM TARTRATE 5 MG TABLET PO SCH (22:52)
[2019-09-29] MEDS: IPRATROPIUM/ALBUTEROL 0.5-2.5 MG/3 ML AMPUL NEB SCH ×3 (00:13→17:12)
[2019-09-29] MEDS: LORAZEPAM INJ 2 MG/1 ML VIAL IV PRN ×2 (00:51→07:45)
[2019-09-29] MEDS: DIAZEPAM INJ 10 MG/2 ML DISP.SYRIN IV SCH (05:43)
[2019-09-29] MEDS: HEPARIN SOD (PORCINE) 5,000 UNIT/ML 1 ML VIAL SUBCUT SCH ×3 (06:38→21:08)
[2019-09-29] MEDS: POTASSI CL 20 MEQ/50 ML RIDER 20 MEQ/50 ML RTUPB IV SCH ×2 (07:39→09:38)
[2019-09-29] MEDS: LIPASE/PROTEASE/AMYLASE 1 CAP CAPSULE.DR PO SCH ×2 (09:39→18:28)
[2019-09-29] MEDS: THIAMINE HCL 100 MG, FOLIC ACID 1 MG in NORMAL SALINE 250 ML IV SCH (09:43)
--- NOTE | 2019-09-29 12:43 | PDOC PROGRESS REPORT ---
Subjective Progress Note for:: 09/29/19 Subjective:: Patient is sitting in bed. She is complaining of needlesticks. She lost her IV and needs 1 for ongoing IV fluid and medication administration. Still with a very depressed and forlorn affect. Reason For Visit: PE, ALCOHOL WD Physical Exam Vital Signs: Temp Pulse Resp BP Pulse Ox 97.4 F 74 16 120/57 L 97 09/28/19 15:44 09/29/19 07:00 09/28/19 16:37 09/28/19 15:44 09/28/19 16:37 Intake & Output 09/28/19 09/29/19 09/30/19 06:59 06:59 06:59 Intake Total 1871.2 451.2 50 Balance 1871.2 451.2 50 Weight 107.2 kg 107 kg General appearance: PRESENT: cooperative, mild distress, obese, well-developed Head exam: PRESENT: atraumatic, normocephalic Ear exam: PRESENT: normal external ear exam. ABSENT: bleeding, drainage Mouth exam: PRESENT: moist, tongue midline Respiratory exam: PRESENT: clear to auscultation [place], symmetrical, unlabored. ABSENT: rales, rhonchi, tachypnea, wheezes Cardiovascular exam: PRESENT: RRR, +S1, +S2 GI/Abdominal exam: PRESENT: normal bowel sounds, soft, tenderness - Minimal. ABSENT: distended, guarding Rectal exam: PRESENT: deferred Gentrourinary exam: ABSENT: indwelling catheter Neurological exam: PRESENT: alert, awake, oriented to person, oriented to place, oriented to time, oriented to situation, CN II-XII grossly intact Psychiatric exam: PRESENT: flat affect. ABSENT: agitated, anxious Skin exam: PRESENT: dry, normal color, warm Results Laboratory Results: 09/26/19 08:16 09/26/19 08:16 09/23/19 09/24/19 09/24/19 19:15 01:05 08:53 Troponin I < 0.012 < 0.012 < 0.012 09/24/19 13:25 Troponin I < 0.012 Impressions: Chest X-Ray 09/23/19 19:42 IMPRESSION: No acute findings. Lung Scan-VQ NM 09/24/19 00:00 IMPRESSION: NORMAL VENTILATION-PERFUSION LUNG SCAN. NEGATIVE FOR PULMONARY EMBOLI. Venous Doppler Study 09/24/19 00:00 IMPRESSION: NO EVIDENCE DVT OR SVT IN EITHER LEG. Assessment and Plan - Diagnosis (1) Alcohol withdrawal syndrome Qualifiers: Complication of substance-induced condition: with unspecified complication Qualified Code(s): F10.239 - Alcohol dependence with withdrawal, unspecified Is this a current diagnosis for this admission?: Yes Plan: The IV benzodiazepine therapy was caustic to her veins. I will change to oral administration and begin to taper the dose. (2) Dyspnea Qualifiers: Dyspnea type: unspecified Qualified Code(s): R06.00 - Dyspnea, unspecified Is this a current diagnosis for this admission?: Yes Plan: Resolved (3) Pancreatitis Is this a current diagnosis for this admission?: Yes Plan: Not symptomatically better. No blood work drawn today due to the patient's extreme difficulty with regard to phlebotomy. Will check labs tomorrow. (4) Diarrhea Qualifiers: Diarrhea type: unspecified type Qualified Code(s): R19.7 - Diarrhea, unspecified Is this a current diagnosis for this admission?: Yes Plan: Resolved (5) Hypokalemia Is this a current diagnosis for this admission?: Yes Plan: Trial of delayed release oral potassium. Trying to avoid irritants in her IV as her IV sites are fragile. If she cannot tolerate then we will need to return to IV administration. (6) Pulmonary emboli Is this a current diagnosis for this admission?: No Plan: Ruled out by ultrasound and VQ scan (7) Obesity (BMI 30-39.9) Is this a current diagnosis for this admission?: Yes Plan: BMI 35.9. Encourage weight loss - Time Time Spent with patient: 15-24 minutes Medications reviewed and adjusted accordingly: Yes Anticipated discharge: Home
[2019-09-29] MEDS: DIAZEPAM 5 MG TABLET PO SCH ×2 (15:18→21:08)
[2019-09-29] MEDS: ZOLPIDEM TARTRATE 5 MG TABLET PO SCH (21:08)
[2019-09-29] MEDS: POTASSIUM CHLORIDE 10 MEQ TABLET.ER PO SCH (21:08)
[2019-09-30] MEDS: IPRATROPIUM/ALBUTEROL 0.5-2.5 MG/3 ML AMPUL NEB SCH ×3 (00:17→16:02)
[2019-09-30] MEDS: LORAZEPAM 1 MG TABLET PO PRN ×4 (02:56→21:42)
[2019-09-30 05:04] LABS: HEMATOCRIT 30.3 % (36.0-47.0); HEMOGLOBIN 10.4 g/dL (12.0-15.5); MEAN CORPUSCULAR HEMOGLOBIN 35.7 pg (27.0-33.4); MEAN CORPUSCULAR HGB CONC 34.4 g/dL (32.0-36.0); MEAN CORPUSCULAR VOLUME 104 fl (80-97); PLATELET COUNT 244 10^3/uL (150-450); RED BLOOD COUNT 2.92 10^6/uL (3.72-5.28); RED CELL DISTRIBUTION WIDTH 13.9 % (11.5-14.0); WHITE BLOOD COUNT 7.7 10^3/uL (4.0-10.5)
[2019-09-30 05:24] LABS: ANION GAP 8 (5-19); BLOOD UREA NITROGEN 5 mg/dL (7-20); CALCIUM 8.5 mg/dL (8.4-10.2); CARBON DIOXIDE 24 mmol/L (22-30); CHLORIDE 105 mmol/L (98-107); GLUCOSE 77 mg/dL (75-110); POTASSIUM 3.1 mmol/L (3.6-5.0)
[2019-09-30] MEDS: DIAZEPAM 5 MG TABLET PO SCH ×3 (05:42→21:06)
[2019-09-30] MEDS: HEPARIN SOD (PORCINE) 5,000 UNIT/ML 1 ML VIAL SUBCUT SCH ×3 (05:42→21:06)
[2019-09-30] MEDS: LIPASE/PROTEASE/AMYLASE 1 CAP CAPSULE.DR PO SCH ×2 (08:33→17:30)
[2019-09-30] MEDS: POTASSIUM CHLORIDE 10 MEQ TABLET.ER PO SCH ×2 (11:25→21:21)
[2019-09-30] MEDS: THIAMINE HCL 100 MG, FOLIC ACID 1 MG in NORMAL SALINE 250 ML IV SCH (11:25)
[2019-09-30] MEDS: GUAIFENESIN/D-METHORPHAN (200-20 MG) SYRUP 10 ML PO PRN ×2 (11:35→19:03)
--- NOTE | 2019-09-30 16:36 | PDOC PROGRESS REPORT ---
Subjective Progress Note for:: 09/30/19 Subjective:: Patient feels poorly. Still n.p.o. but her lipase is increasing. Still with pain in the left upper quadrant in the subcostal area midline around almost to the flank. Reason For Visit: PE, ALCOHOL WD Physical Exam Vital Signs: Temp Pulse Resp BP Pulse Ox 97.8 F 86 16 129/73 H 98 09/30/19 11:55 09/30/19 11:55 09/30/19 11:55 09/30/19 11:55 09/30/19 11:55 Intake & Output 09/29/19 09/30/19 10/01/19 06:59 06:59 06:59 Intake Total 451.2 301.2 251.2 Balance 451.2 301.2 251.2 Weight 107 kg 107.9 kg General appearance: PRESENT: cooperative, mild distress - Mild to moderate distress Head exam: PRESENT: atraumatic, normocephalic Respiratory exam: PRESENT: clear to auscultation [place], symmetrical, unlabored. ABSENT: rales, rhonchi, tachypnea, wheezes Cardiovascular exam: PRESENT: RRR, +S1, +S2 GI/Abdominal exam: PRESENT: normal bowel sounds, soft, tenderness - Left upper abdomen from the epigastrium laterally, other - Protuberant abdomen Rectal exam: PRESENT: deferred Gentrourinary exam: ABSENT: indwelling catheter Neurological exam: PRESENT: alert, awake, oriented to person, oriented to place, oriented to time, oriented to situation, CN II-XII grossly intact Psychiatric exam: PRESENT: flat affect. ABSENT: agitated, anxious Results Laboratory Results: 09/30/19 04:30 09/30/19 04:30 09/30/19 09/30/19 09/30/19 04:30 04:30 04:30 WBC 7.7 RBC 2.92 L Hgb 10.4 L Hct 30.3 L MCV 104 H MCH 35.7 H MCHC 34.4 RDW 13.9 Plt Count 244 Sodium 137.4 Potassium 3.1 L Chloride 105 Carbon Dioxide 24 Anion Gap 8 BUN 5 L Creatinine 0.46 L Est GFR ( Amer) > 60 Glucose 77 Calcium 8.5 Magnesium 1.9 Lipase 2467.9 H 09/23/19 09/24/19 09/24/19 19:15 01:05 08:53 Troponin I < 0.012 < 0.012 < 0.012 09/24/19 13:25 Troponin I < 0.012 Impressions: Chest X-Ray 09/23/19 19:42 IMPRESSION: No acute findings. Lung Scan-VQ NM 09/24/19 00:00 IMPRESSION: NORMAL VENTILATION-PERFUSION LUNG SCAN. NEGATIVE FOR PULMONARY EMBOLI. Venous Doppler Study 09/24/19 00:00 IMPRESSION: NO EVIDENCE DVT OR SVT IN EITHER LEG. Assessment and Plan - Diagnosis (1) Alcohol withdrawal syndrome Qualifiers: Complication of substance-induced condition: with unspecified complication Qualified Code(s): F10.239 - Alcohol dependence with withdrawal, unspecified Is this a current diagnosis for this admission?: Yes Plan: We will continue to decrease benzodiazepine therapy. No further evidence of active withdrawal. (2) Pancreatitis Is this a current diagnosis for this admission?: Yes Plan: The patient's lipase continues to increase despite remaining n.p.o. Interestingly the focus of tenderness is more towards the tail of the pancreas. I have ordered urgent CT scanning of the abdomen to further assess. (3) Dyspnea Qualifiers: Dyspnea type: unspecified Qualified Code(s): R06.00 - Dyspnea, unspecified Is this a current diagnosis for this admission?: Yes Plan: Resolved (4) Diarrhea Qualifiers: Diarrhea type: unspecified type Qualified Code(s): R19.7 - Diarrhea, unspecified Is this a current diagnosis for this admission?: Yes Plan: Resolved (5) Hypokalemia Is this a current diagnosis for this admission?: Yes Plan: Potassium is still low. The patient has not been having any diarrhea. Her glucose levels have been low as well therefore I am going to change her IV fluids to D5 normal saline with potassium and run this continuously. (6) Obesity (BMI 30-39.9) Is this a current diagnosis for this admission?: Yes Plan: Continue to encourage weight loss. N.p.o. status for several days will certainly cause some weight loss. (7) Pulmonary emboli Is this a current diagnosis for this admission?: No Plan: Ruled out by VQ scan - Time Time Spent with patient: 25-34 minutes Medications reviewed and adjusted accordingly: Yes
[2019-09-30] MEDS ORDERED: IPRATROPIUM/ALBUTEROL 0.5-2.5 MG/3 ML AMPUL NEB PRN (19:44)
[2019-09-30] MEDS: LOPERAMIDE HCL 2 MG CAPSULE PO PRN (20:34)
[2019-09-30] MEDS: ZOLPIDEM TARTRATE 5 MG TABLET PO SCH (21:06)
[2019-09-30] MEDS: FLUTICASONE NASAL SPRAY 50 MCG/SPRY 120 SPRAY/16 GM NASL SCH (21:06)
[2019-09-30] MEDS ORDERED: POTASSIUM CHLORIDE 10 MEQ TABLET.ER PO ONE (21:10)
[2019-09-30] MEDS: MAG HYDROX/AL HYDROX/SIMETH SUSP 30 ML UDCUP PO PRN (21:41)
[2019-10-01] MEDS: LORAZEPAM 1 MG TABLET PO PRN ×4 (03:04→21:18)
[2019-10-01] MEDS: LOPERAMIDE HCL 2 MG CAPSULE PO PRN ×2 (03:07→20:19)
--- NOTE | 2019-10-01 04:04 | RADIOLOGY REPORT (SQ) ---
CLINICAL HISTORY: Worsening abdominal pain, increasing lipase, tende COMPARISON: None. 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 FINDINGS: There is a small left pleural effusion. Abdomen: Liver is fatty in attenuation. There is no biliary dilatation. Gallbladder is mildly distended. The pancreas and spleen are normal in appearance. The adrenal glands and kidneys are unremarkable. Abdominal aorta is normal in course and caliber without aneurysm. There is no free air. There is no retroperitoneal adenopathy. Pelvis: There is no bowel obstruction. Urinary bladder is unremarkable. There is no free fluid. Hysterectomy was performed. Appendix is not clearly seen. Skeleton: There are no acute osseous findings. No suspicious bony lesions. IMPRESSION: No definite acute inflammatory process in the abdomen and pelvis. No overt CT findings of pancreatitis. Small left pleural effusion.
[2019-10-01] MEDS: HEPARIN SOD (PORCINE) 5,000 UNIT/ML 1 ML VIAL SUBCUT SCH ×3 (05:02→21:31)
[2019-10-01] MEDS: LORATADINE 10 MG TABLET PO SCH (09:32)
[2019-10-01] MEDS: LIPASE/PROTEASE/AMYLASE 1 CAP CAPSULE.DR PO SCH ×2 (09:32→17:29)
[2019-10-01] MEDS: DIAZEPAM 5 MG TABLET PO SCH (09:32)
[2019-10-01] MEDS: PANTOPRAZOLE SODIUM 40 MG VIAL IV SCH (09:32)
[2019-10-01] MEDS: POTASSIUM CHLORIDE 10 MEQ TABLET.ER PO SCH (09:32)
[2019-10-01] MEDS: FLUTICASONE NASAL SPRAY 50 MCG/SPRY 120 SPRAY/16 GM NASL SCH ×2 (09:33→21:28)
[2019-10-01] MEDS: FLUTICASONE/UMECLIDIN/VILANTER 100-62.5-25 MCG/DOSE IH SCH (09:33)
[2019-10-01] MEDS: POTASSI CL 20 MEQ/D5NS 1L 20 MEQ/1,000 ML RTUINJ IV PRN ×2 (09:34→19:31)
--- NOTE | 2019-10-01 10:36 | RADIOLOGY REPORT (SQ) ---
EXAM DESCRIPTION: PICC INSERTION; FLUORO/CV PLACEMENT; U/S GUIDE FOR VASCULAR ACCESS COMPLETED DATE/TIME: 10/01/2019 9:20 am REASON FOR STUDY: [place]; IV ACCESS COMPARISON: None. FLUOROSCOPY TIME: 0.41 minutes. 2 images submitted to PACS. TECHNIQUE: Fluoroscopic and ultrasound guided PICC placement. LIMITATIONS: None. PROCEDURE: Te procedure, risks, benefits, and alternatives were discussed with the patient in the pr eprocedural area, and all questions were answered. Informed consent was obtained verbally and in writ ing. The patient was then brought to the procedural suite, positioned supine on the fluoroscopy table, and a time-out was performed. At first the left upper extremity was evaluated with ultrasound and the brachial vein was found to be patent and compressible. The left upper extremity was then prepped and draped with 2% chlorhexidine utilizing standard sterile technique. After the skin over the brachial vein was anesthetized with 1% lidocaine, ultrasound guidance was used to access the vessel with a 21-gauge needle - a sonographic i mage was stored for documentation. A 0.018 inch guidewire was then inserted through the needle and ad vanced under fluoroscopic guidance into the SVC. After that, the needle was exchanged over the guidew monse for a peel-away sheath. A 5 Macedonian double -lumen PICC was then cut to the appropriate length of 4 1 cm, inserted through the sheath and advanced under fluoroscopic guidance into the SVC. After that, the peel-away sheath was removed and a fluoroscopic image of the chest was obtained to confirm proper position of the catheter tip within SVC. The lumens of the PICC were then aspirated, flushed with sterile saline and heparinized. At the end of the procedure the PICC was secured in place and a sterile dressing applied over it. The patient tolerated the procedure well without immediate complication. At the end of the procedure the patient's condition was unchanged from the preprocedural baseline. No IV conscious sedation was administered. Physiologic monitoring was provided before, during, and after the procedure. Documentation of [id number] time performing proceduralist spent monitoring the patient: 15 minutes. IMPRESSION: Successful placement of a 5 Macedonian double lumen PICC via the left brachial vein utilizin g fluoroscopic and sonographic guidance. COMMENT: Patient medication list reviewed: Yes- Quality ID# [id number]:Eligible professional attests to doc umenting in the medical record they obtained, updated, or reviewed the patient's current medications. . Quality ID 145: Final reports for procedures using fluoroscopy that document radiation exposure janice peter, or exposure time and number of fluorographic images (if radiation exposure indices are not avail able) Quality ID #76: The patient was prepped and draped using maximum sterile barrier technique including cap, mask, sterile gown, sterile gloves, a large sterile sheet, hand hygiene, and 2% Chlorhexidine fo r cutaneous antisepsis. When ultrasound is used, sterile ultrasound techniques are followed requiring sterile gel and sterile probes. TECHNICAL DOCUMENTATION: JOB ID: [id number] [employer]- All Rights Reserved rev-02/06 Reading location - IP/workstation name: [email or web address]
--- NOTE | 2019-10-01 10:36 | RADIOLOGY REPORT (SQ) ---
EXAM DESCRIPTION: PICC INSERTION; FLUORO/CV PLACEMENT; U/S GUIDE FOR VASCULAR ACCESS COMPLETED DATE/TIME: 10/01/2019 9:20 am REASON FOR STUDY: [place]; IV ACCESS COMPARISON: None. FLUOROSCOPY TIME: 0.41 minutes. 2 images submitted to PACS. TECHNIQUE: Fluoroscopic and ultrasound guided PICC placement. LIMITATIONS: None. PROCEDURE: Te procedure, risks, benefits, and alternatives were discussed with the patient in the pr eprocedural area, and all questions were answered. Informed consent was obtained verbally and in writ ing. The patient was then brought to the procedural suite, positioned supine on the fluoroscopy table, and a time-out was performed. At first the left upper extremity was evaluated with ultrasound and the brachial vein was found to be patent and compressible. The left upper extremity was then prepped and draped with 2% chlorhexidine utilizing standard sterile technique. After the skin over the brachial vein was anesthetized with 1% lidocaine, ultrasound guidance was used to access the vessel with a 21-gauge needle - a sonographic i mage was stored for documentation. A 0.018 inch guidewire was then inserted through the needle and ad vanced under fluoroscopic guidance into the SVC. After that, the needle was exchanged over the guidew monse for a peel-away sheath. A 5 Hungarian double -lumen PICC was then cut to the appropriate length of 4 1 cm, inserted through the sheath and advanced under fluoroscopic guidance into the SVC. After that, the peel-away sheath was removed and a fluoroscopic image of the chest was obtained to confirm proper position of the catheter tip within SVC. The lumens of the PICC were then aspirated, flushed with sterile saline and heparinized. At the end of the procedure the PICC was secured in place and a sterile dressing applied over it. The patient tolerated the procedure well without immediate complication. At the end of the procedure the patient's condition was unchanged from the preprocedural baseline. No IV conscious sedation was administered. Physiologic monitoring was provided before, during, and after the procedure. Documentation of [id number] time performing proceduralist spent monitoring the patient: 15 minutes. IMPRESSION: Successful placement of a 5 Hungarian double lumen PICC via the left brachial vein utilizin g fluoroscopic and sonographic guidance. COMMENT: Patient medication list reviewed: Yes- Quality ID# 130:Eligible professional attests to doc umenting in the medical record they obtained, updated, or reviewed the patient's current medications. . Quality ID 145: Final reports for procedures using fluoroscopy that document radiation exposure janice peter, or exposure time and number of fluorographic images (if radiation exposure indices are not avail able) Quality ID #76: The patient was prepped and draped using maximum sterile barrier technique including cap, mask, sterile gown, sterile gloves, a large sterile sheet, hand hygiene, and 2% Chlorhexidine fo r cutaneous antisepsis. When ultrasound is used, sterile ultrasound techniques are followed requiring sterile gel and sterile probes. TECHNICAL DOCUMENTATION: JOB ID: [id number] [employer]- All Rights Reserved rev-02/06 Reading location - IP/workstation name: [email or web address]
--- NOTE | 2019-10-01 11:37 | PDOC PROGRESS REPORT ---
Subjective Progress Note for:: 10/01/19 Subjective:: PICC line is successfully placed. Patient is still lethargic and exhibits some short-term memory issues. Possible relation to medications. We will continue to wean sedating medications. Reason For Visit: PE, ALCOHOL WD Physical Exam Vital Signs: Temp Pulse Resp BP Pulse Ox 97.6 F 80 18 130/69 H 98 10/01/19 07:48 10/01/19 07:48 10/01/19 07:48 10/01/19 07:48 10/01/19 07:48 Intake & Output 09/30/19 10/01/19 10/02/19 06:59 06:59 06:59 Intake Total 301.2 251.2 Balance 301.2 251.2 Weight 107.9 kg 106.6 kg General appearance: PRESENT: no acute distress, cooperative, well-developed Head exam: PRESENT: atraumatic, normocephalic Ear exam: PRESENT: TM's normal bilaterally. ABSENT: bleeding, drainage Respiratory exam: PRESENT: clear to auscultation [place], symmetrical, unlabored. ABSENT: rales, rhonchi, tachypnea, wheezes Cardiovascular exam: PRESENT: RRR, +S1, +S2, systolic murmur - 1-2 over 6 GI/Abdominal exam: PRESENT: normal bowel sounds, soft, tenderness - Unchanged Rectal exam: PRESENT: deferred Gentrourinary exam: ABSENT: indwelling catheter Extremities exam: ABSENT: pedal edema Neurological exam: PRESENT: alert, awake, oriented to person, oriented to place, oriented to situation, CN II-XII grossly intact, other - Patient seems sluggish however she did just wake up. She did asked the same questions twice at times. Psychiatric exam: PRESENT: flat affect. ABSENT: agitated, anxious Skin exam: PRESENT: dry, normal color, warm. ABSENT: rash Results Laboratory Results: 09/30/19 04:30 09/30/19 04:30 09/23/19 09/24/19 09/24/19 19:15 01:05 08:53 Troponin I < 0.012 < 0.012 < 0.012 09/24/19 13:25 Troponin I < 0.012 Impressions: Chest X-Ray 09/23/19 19:42 IMPRESSION: No acute findings. Lung Scan-VQ NM 09/24/19 00:00 IMPRESSION: NORMAL VENTILATION-PERFUSION LUNG SCAN. NEGATIVE FOR PULMONARY EMBOLI. Venous Doppler Study 09/24/19 00:00 IMPRESSION: NO EVIDENCE DVT OR SVT IN EITHER LEG. Abdomen/Pelvis CT 09/30/19 16:30 IMPRESSION: No definite acute inflammatory process in the abdomen and pelvis. No overt CT findings of pancreatitis. Small left pleural effusion. Guidance Fluoroscopy 10/01/19 00:00 IMPRESSION: Successful placement of a 5 Lao double lumen PICC via the left brachial vein utilizing fluoroscopic and sonographic guidance. Interventional Vascular Procedure 10/01/19 00:00 IMPRESSION: Successful placement of a 5 Lao double lumen PICC via the left brachial vein utilizing fluoroscopic and sonographic guidance. PICC Line Insertion 10/01/19 00:00 IMPRESSION: Successful placement of a 5 Lao double lumen PICC via the left brachial vein utilizing fluoroscopic and sonographic guidance. Assessment and Plan - Diagnosis (1) Pancreatitis Qualifiers: Chronicity: acute Pancreatitis type: alcohol induced Acute pancreatitis complication: no infection or necrosis Qualified Code(s): K85.20 - Alcohol induced acute pancreatitis without necrosis or infection Is this a current diagnosis for this admission?: Yes (2) Alcohol withdrawal syndrome Qualifiers: Complication of substance-induced condition: with unspecified complication Qualified Code(s): F10.239 - Alcohol dependence with withdrawal, unspecified Is this a current diagnosis for this admission?: Yes (3) Dyspnea Qualifiers: Dyspnea type: unspecified Qualified Code(s): R06.00 - Dyspnea, unspecified Is this a current diagnosis for this admission?: Yes (4) Diarrhea Qualifiers: Diarrhea type: unspecified type Qualified Code(s): R19.7 - Diarrhea, unspecified Is this a current diagnosis for this admission?: Yes (5) Hypokalemia Is this a current diagnosis for this admission?: Yes (6) Obesity (BMI 30-39.9) Is this a current diagnosis for this admission?: Yes (7) Pulmonary emboli Is this a current diagnosis for this admission?: No - Plan Summary Summary: 10/01/2019 Pancreatitis-lipase is trending down. I am going to try sips of clears. We will discontinue pancreatic enzymes at this time. Continue to monitor lipase. CT scan of the abdomen showed no evidence of cholecystitis. No marked dilatation of ducts and no evidence of stones by CT scan. Hypokalemia-the patient is now on D5 normal saline with potassium. She is also taking a small dose of potassium chloride. If the oral diet increases then I will decrease the IV fluids. - Time Time Spent with patient: 15-24 minutes Medications reviewed and adjusted accordingly: Yes Anticipated discharge: Home
[2019-10-01 12:17] LABS: ABSOLUTE EOSINOPHILS # (AUTO) 0.4 10^3/uL (0.0-0.6); ABSOLUTE LYMPHOCYTES (AUTO) 1.3 10^3/uL (0.5-4.7); ABSOLUTE MONOCYTES (AUTO) 1.1 10^3/uL (0.1-1.4); ABSOLUTE NEUT (AUTO) 4.4 10^3/uL (1.7-8.2); BASOPHILS % (AUTO) 0.3 % (0-2); EOSINOPHILS % (AUTO) 5.3 % (0-6); HEMATOCRIT 29.4 % (36.0-47.0); HEMOGLOBIN 10.1 g/dL (12.0-15.5); LYMPHOCYTES % (AUTO) 17.5 % (13-45); MEAN CORPUSCULAR HEMOGLOBIN 35.7 pg (27.0-33.4); MEAN CORPUSCULAR HGB CONC 34.4 g/dL (32.0-36.0); MEAN CORPUSCULAR VOLUME 104 fl (80-97); MONOCYTES % (AUTO) 15.8 % (3-13); PLATELET COUNT 303 10^3/uL (150-450); RED BLOOD COUNT 2.83 10^6/uL (3.72-5.28); RED CELL DISTRIBUTION WIDTH 13.7 % (11.5-14.0); SEGMENTED NEUTROPHILS % (AUTO) 61.1 % (42-78); TOTAL CELLS COUNTED % (AUTO) 100 %; WHITE BLOOD COUNT 7.2 10^3/uL (4.0-10.5)
[2019-10-01 13:16] LABS: ALBUMIN 2.6 g/dL (3.5-5.0); ALKALINE PHOSPHATASE 222 U/L (38-126); ANION GAP 7 (5-19); ASPARTATE AMINO TRANSFERASE 49 U/L (14-36); BILIRUBIN,DIRECT 0.3 mg/dL (0.0-0.4); BILIRUBIN,TOTAL 0.3 mg/dL (0.2-1.3); BLOOD UREA NITROGEN 3 mg/dL (7-20); CALCIUM 8.4 mg/dL (8.4-10.2); CARBON DIOXIDE 27 mmol/L (22-30); CHLORIDE 104 mmol/L (98-107); GLUCOSE 101 mg/dL (75-110); POTASSIUM 3.5 mmol/L (3.6-5.0); TOTAL PROTEIN 5.5 g/dL (6.3-8.2)
[2019-10-01] MEDS: SUMATRIPTAN SUCCINATE 50 MG TABLET PO PRN (14:43)
[2019-10-01] MEDS ORDERED: NORMAL SALINE 10 ML SDV (AFTER EACH USE) IV PRN (19:30)
[2019-10-01] MEDS: MAG HYDROX/AL HYDROX/SIMETH SUSP 30 ML UDCUP PO PRN (19:31)
[2019-10-01] MEDS: GUAIFENESIN/D-METHORPHAN (200-20 MG) SYRUP 10 ML PO PRN (21:28)
[2019-10-01] MEDS: NORMAL SALINE 10 ML SDV (SCHEDULED) IV SCH (21:31)
[2019-10-01] MEDS: ZOLPIDEM TARTRATE 5 MG TABLET PO SCH (21:32)
[2019-10-02] MEDS: ACETAMINOPHEN 325 MG TABLET PO PRN (00:11)
[2019-10-02] MEDS: SUMATRIPTAN SUCCINATE 50 MG TABLET PO PRN (00:12)
[2019-10-02] MEDS: LORAZEPAM 1 MG TABLET PO PRN ×2 (01:22→09:46)
[2019-10-02 04:43] LABS: BLOOD UREA NITROGEN 2 mg/dL (7-20); CALCIUM 8.5 mg/dL (8.4-10.2); GLUCOSE 101 mg/dL (75-110); POTASSIUM 3.4 mmol/L (3.6-5.0)
[2019-10-02 04:48] LABS: ANION GAP 5 (5-19); CARBON DIOXIDE 27 mmol/L (22-30); CHLORIDE 109 mmol/L (98-107)
[2019-10-02] MEDS: HEPARIN SOD (PORCINE) 5,000 UNIT/ML 1 ML VIAL SUBCUT SCH ×3 (05:08→21:59)
[2019-10-02] MEDS: POTASSI CL 20 MEQ/D5NS 1L 20 MEQ/1,000 ML RTUINJ IV PRN ×2 (05:42→16:59)
[2019-10-02] MEDS: PANTOPRAZOLE SODIUM 40 MG VIAL IV SCH (09:19)
[2019-10-02] MEDS: FLUTICASONE/UMECLIDIN/VILANTER 100-62.5-25 MCG/DOSE IH SCH (09:19)
[2019-10-02] MEDS: NORMAL SALINE 10 ML SDV (SCHEDULED) IV SCH ×2 (09:20→21:59)
[2019-10-02] MEDS: FLUTICASONE NASAL SPRAY 50 MCG/SPRY 120 SPRAY/16 GM NASL SCH ×2 (09:20→21:58)
[2019-10-02] MEDS: LORATADINE 10 MG TABLET PO SCH (09:21)
[2019-10-02] MEDS: LOPERAMIDE HCL 2 MG CAPSULE PO PRN (10:29)
[2019-10-02] MEDS: DIAZEPAM 5 MG TABLET PO PRN ×2 (13:42→22:05)
[2019-10-02] MEDS: LIPASE/PROTEASE/AMYLASE 1 CAP CAPSULE.DR PO SCH (16:59)
--- NOTE | 2019-10-02 18:42 | PDOC PROGRESS REPORT ---
Subjective Progress Note for:: 10/02/19 Subjective:: Patient sitting in bed. Requests more Valium. Reason For Visit: PE, ALCOHOL WD Physical Exam Vital Signs: Temp Pulse Resp BP Pulse Ox 98.3 F 79 16 91/67 L 100 10/02/19 16:48 10/02/19 16:48 10/02/19 16:48 10/02/19 16:48 10/02/19 16:48 Intake & Output 10/01/19 10/02/19 10/03/19 06:59 06:59 06:59 Intake Total 251.2 3505 1921 Output Total 250 Balance 251.2 3505 1671 Weight 106.6 kg 109.5 kg General appearance: PRESENT: no acute distress, cooperative Respiratory exam: PRESENT: clear to auscultation [place], symmetrical, unlabored. ABSENT: rales, rhonchi, tachypnea, wheezes Cardiovascular exam: PRESENT: RRR, +S1, +S2 GI/Abdominal exam: PRESENT: normal bowel sounds, soft, tenderness Neurological exam: PRESENT: alert, awake, oriented to person, oriented to place, oriented to situation Results Laboratory Results: 10/01/19 12:00 10/02/19 04:05 10/02/19 04:05 Sodium 140.5 Potassium 3.4 L Chloride 109 H Carbon Dioxide 27 Anion Gap 5 BUN 2 L Creatinine 0.50 L Est GFR ( Amer) > 60 Glucose 101 Calcium 8.5 Lipase 2100.6 H 09/23/19 09/24/19 09/24/19 19:15 01:05 08:53 Troponin I < 0.012 < 0.012 < 0.012 09/24/19 13:25 Troponin I < 0.012 Impressions: Chest X-Ray 09/23/19 19:42 IMPRESSION: No acute findings. Lung Scan-VQ NM 09/24/19 00:00 IMPRESSION: NORMAL VENTILATION-PERFUSION LUNG SCAN. NEGATIVE FOR PULMONARY EMBOLI. Venous Doppler Study 09/24/19 00:00 IMPRESSION: NO EVIDENCE DVT OR SVT IN EITHER LEG. Abdomen/Pelvis CT 09/30/19 16:30 IMPRESSION: No definite acute inflammatory process in the abdomen and pelvis. No overt CT findings of pancreatitis. Small left pleural effusion. Guidance Fluoroscopy 10/01/19 00:00 IMPRESSION: Successful placement of a 5 Togolese double lumen PICC via the left brachial vein utilizing fluoroscopic and sonographic guidance. Interventional Vascular Procedure 10/01/19 00:00 IMPRESSION: Successful placement of a 5 Togolese double lumen PICC via the left brachial vein utilizing fluoroscopic and sonographic guidance. PICC Line Insertion 10/01/19 00:00 IMPRESSION: Successful placement of a 5 Togolese double lumen PICC via the left brachial vein utilizing fluoroscopic and sonographic guidance. Assessment and Plan - Diagnosis (1) Pancreatitis Qualifiers: Chronicity: acute Pancreatitis type: alcohol induced Acute pancreatitis complication: no infection or necrosis Qualified Code(s): K85.20 - Alcohol induced acute pancreatitis without necrosis or infection Is this a current diagnosis for this admission?: Yes (2) Alcohol withdrawal syndrome Qualifiers: Complication of substance-induced condition: with unspecified complication Qualified Code(s): F10.239 - Alcohol dependence with withdrawal, unspecified Is this a current diagnosis for this admission?: Yes (3) Dyspnea Qualifiers: Dyspnea type: unspecified Qualified Code(s): R06.00 - Dyspnea, unspecified Is this a current diagnosis for this admission?: Yes (4) Diarrhea Qualifiers: Diarrhea type: unspecified type Qualified Code(s): R19.7 - Diarrhea, unspecified Is this a current diagnosis for this admission?: Yes (5) Hypokalemia Is this a current diagnosis for this admission?: Yes (6) Obesity (BMI 30-39.9) Is this a current diagnosis for this admission?: Yes (7) Pulmonary emboli Is this a current diagnosis for this admission?: No - Plan Summary Summary: 10/01/2019 Pancreatitis-lipase is trending down. I am going to try sips of clears. We will discontinue pancreatic enzymes at this time. Continue to monitor lipase. CT scan of the abdomen showed no evidence of cholecystitis. No marked dilatation of ducts and no evidence of stones by CT scan. Hypokalemia-the patient is now on D5 normal saline with potassium. She is also taking a small dose of potassium chloride. If the oral diet increases then I will decrease the IV fluids. 10/02/2019 Lipase is slightly better. I did increase the pancreatic enzymes and moved her diet to full liquid. I adjusted her Valium, discontinue lorazepam and we will try temazepam for sleep. Continue to monitor lipase and adjust diet accor dingly. I did order a lipid profile to see if she has underlying hypertriglyceridemia. - Time Time Spent with patient: 15-24 minutes Medications reviewed and adjusted accordingly: Yes Anticipated discharge: Home
[2019-10-02] MEDS ORDERED: TEMAZEPAM 15 MG CAPSULE PO SCH (22:00)
[2019-10-03] MEDS: POTASSI CL 20 MEQ/D5NS 1L 20 MEQ/1,000 ML RTUINJ IV PRN ×3 (03:28→22:21)
[2019-10-03] MEDS: HEPARIN SOD (PORCINE) 5,000 UNIT/ML 1 ML VIAL SUBCUT SCH ×3 (06:45→22:10)
[2019-10-03 07:58] LABS: ALBUMIN 2.6 g/dL (3.5-5.0); ALKALINE PHOSPHATASE 172 U/L (38-126); ANION GAP 6 (5-19); ASPARTATE AMINO TRANSFERASE 41 U/L (14-36); BILIRUBIN,DIRECT 0.2 mg/dL (0.0-0.4); BILIRUBIN,TOTAL 0.2 mg/dL (0.2-1.3); CALCIUM 8.4 mg/dL (8.4-10.2); CARBON DIOXIDE 24 mmol/L (22-30); CHLORIDE 110 mmol/L (98-107); CHOLESTEROL 153.57 mg/dL (0-200); GLUCOSE 81 mg/dL (75-110); POTASSIUM 3.3 mmol/L (3.6-5.0); TOTAL PROTEIN 5.1 g/dL (6.3-8.2); TRIGLYCERIDES 107 mg/dL (<150)
[2019-10-03 08:08] LABS: DIRECT LDL 94 mg/dL (<100)
[2019-10-03 08:10] LABS: BLOOD UREA NITROGEN < 2 mg/dL (7-20)
[2019-10-03] MEDS ORDERED: ZOLPIDEM TARTRATE 5 MG TABLET PO PRN (08:28)
[2019-10-03] MEDS: LIPASE/PROTEASE/AMYLASE 1 CAP CAPSULE.DR PO SCH ×3 (08:35→18:00)
[2019-10-03] MEDS: DIAZEPAM 5 MG TABLET PO PRN ×2 (08:37→22:17)
[2019-10-03] MEDS: FLUTICASONE NASAL SPRAY 50 MCG/SPRY 120 SPRAY/16 GM NASL SCH ×2 (09:39→22:12)
[2019-10-03] MEDS: FLUTICASONE/UMECLIDIN/VILANTER 100-62.5-25 MCG/DOSE IH SCH (09:39)
[2019-10-03] MEDS: LORATADINE 10 MG TABLET PO SCH (09:41)
[2019-10-03] MEDS: NORMAL SALINE 10 ML SDV (SCHEDULED) IV SCH ×2 (09:41→22:13)
[2019-10-03] MEDS: PANTOPRAZOLE SODIUM 40 MG VIAL IV SCH (09:42)
[2019-10-03] MEDS: SUMATRIPTAN SUCCINATE 50 MG TABLET PO PRN (10:45)
--- NOTE | 2019-10-03 13:40 | PDOC PROGRESS REPORT ---
Subjective Progress Note for:: 10/03/19 Subjective:: This is a 54-year-old female who presented with abdominal pain and was admitted for acute pancreatitis. Patient reports that she has not had an alcohol drinking for more than 20 years until recently due to marital issues with her . She said she was drinking 2 pints of vodka a day and she subsequently developed abdominal pain. No acute event overnight. When he got up this morning, she says that her abdominal pain has improved. She is tolerating a liquid diet well. Will advance her diet today. Wull also replace potassium. Reason For Visit: PE, ALCOHOL WD Physical Exam Vital Signs: Temp Pulse Resp BP Pulse Ox 97.4 F 80 16 102/85 96 10/03/19 11:44 10/03/19 11:44 10/03/19 11:44 10/03/19 11:44 10/03/19 11:44 Intake & Output 10/02/19 10/03/19 10/04/19 06:59 06:59 06:59 Intake Total 3505 4421 Output Total 2300 Balance 3505 2121 Weight 241 lb 6.499 oz 240 lb 11.916 oz General appearance: PRESENT: no acute distress, well-developed, well-nourished Head exam: PRESENT: atraumatic, normocephalic Eye exam: PRESENT: conjunctiva pink, EOMI, PERRLA. ABSENT: scleral icterus Ear exam: PRESENT: normal external ear exam Mouth exam: PRESENT: moist, tongue midline Neck exam: ABSENT: carotid bruit, JVD, lymphadenopathy, thyromegaly Respiratory exam: PRESENT: clear to auscultation [place]. ABSENT: rales, rhonchi, wheezes Cardiovascular exam: PRESENT: RRR. ABSENT: diastolic murmur, rubs, systolic murmur Pulses: PRESENT: normal dorsalis pedis pul GI/Abdominal exam: PRESENT: normal bowel sounds, soft. ABSENT: distended, guarding, mass, organolmegaly, rebound, tenderness Rectal exam: PRESENT: deferred Extremities exam: PRESENT: full ROM. ABSENT: calf tenderness, clubbing, pedal edema Neurological exam: PRESENT: alert, awake, oriented to person, oriented to place, oriented to time, oriented to situation, CN II-XII grossly intact. ABSENT: motor sensory deficit Results Laboratory Results: 10/01/19 12:00 10/03/19 05:12 10/03/19 10/03/19 05:12 05:12 Sodium 140.3 Potassium 3.3 L Chloride 110 H Carbon Dioxide 24 Anion Gap 6 BUN < 2 L Creatinine 0.54 Est GFR ( Amer) > 60 Glucose 81 Calcium 8.4 Magnesium 1.9 Total Bilirubin 0.2 AST 41 H Alkaline Phosphatase 172 H Total Protein 5.1 L Albumin 2.6 L Triglycerides 107 Cholesterol 153.57 LDL Cholesterol Direct 94 VLDL Cholesterol 21.0 HDL Cholesterol 44 Lipase 1639.8 H TSH 2.38 09/23/19 09/24/19 09/24/19 19:15 01:05 08:53 Troponin I < 0.012 < 0.012 < 0.012 09/24/19 13:25 Troponin I < 0.012 Impressions: Chest X-Ray 09/23/19 19:42 IMPRESSION: No acute findings. Lung Scan-VQ NM 09/24/19 00:00 IMPRESSION: NORMAL VENTILATION-PERFUSION LUNG SCAN. NEGATIVE FOR PULMONARY EMBOLI. Venous Doppler Study 09/24/19 00:00 IMPRESSION: NO EVIDENCE DVT OR SVT IN EITHER LEG. Abdomen/Pelvis CT 09/30/19 16:30 IMPRESSION: No definite acute inflammatory process in the abdomen and pelvis. No overt CT findings of pancreatitis. Small left pleural effusion. Guidance Fluoroscopy 10/01/19 00:00 IMPRESSION: Successful placement of a 5 Belarusian double lumen PICC via the left brachial vein utilizing fluoroscopic and sonographic guidance. Interventional Vascular Procedure 10/01/19 00:00 IMPRESSION: Successful placement of a 5 [place]ian double lumen PICC via the left brachial vein utilizing fluoroscopic and sonographic guidance. PICC Line Insertion 10/01/19 00:00 IMPRESSION: Successful placement of a 5 [place] double lumen PICC via the left brachial vein utilizing fluoroscopic and sonographic guidance. Assessment and Plan - Diagnosis (1) Acute pancreatitis Is this a current diagnosis for this admission?: Yes Plan: Alcohol induced. Will advance diet today. Continue current IV fluids. (2) Hypokalemia Is this a current diagnosis for this admission?: Yes Plan: Will add oral Potassium supplements. Continue current IV fluids. - Plan Summary Summary: 10/01/2019 Pancreatitis-lipase is trending down. I am going to try sips of clears. We will discontinue pancreatic enzymes at this time. Continue to monitor lipase. CT scan of the abdomen showed no evidence of cholecystitis. No marked dilatation of ducts and no evidence of stones by CT scan. Hypokalemia-the patient is now on D5 normal saline with potassium. She is also taking a small dose of potassium chloride. If the oral diet increases then I will decrease the IV fluids. 10/02/2019 Lipase is slightly better. I did increase the pancreatic enzymes and moved her diet to full liquid. I adjusted her Valium, discontinue lorazepam and we will try temazepam for sleep. Continue to monitor lipase and adjust diet accordingly. I did order a lipid profile to see if she has underlying hypertriglyceridemia. - Time Time Spent with patient: 25-34 minutes
[2019-10-03] MEDS ORDERED: POTASSIUM CHLORIDE 10 MEQ TABLET.ER PO ONE (14:30)
[2019-10-03] MEDS: BUTALB/ACETAMINOPHEN/CAFFEINE 1 TAB EACH PO PRN (16:20)
[2019-10-04] MEDS: BUTALB/ACETAMINOPHEN/CAFFEINE 1 TAB EACH PO PRN (00:39)
[2019-10-04] MEDS: HEPARIN SOD (PORCINE) 5,000 UNIT/ML 1 ML VIAL SUBCUT SCH ×2 (05:36→13:57)
[2019-10-04] MEDS: DIAZEPAM 5 MG TABLET PO PRN (05:36)
[2019-10-04] MEDS: LIPASE/PROTEASE/AMYLASE 1 CAP CAPSULE.DR PO SCH ×2 (08:06→10:11)
[2019-10-04] MEDS ORDERED: SIMETHICONE 80 MG TAB.CHEW PO ONE (08:30)
[2019-10-04] MEDS: FLUTICASONE/UMECLIDIN/VILANTER 100-62.5-25 MCG/DOSE IH SCH (10:10)
[2019-10-04] MEDS: FLUTICASONE NASAL SPRAY 50 MCG/SPRY 120 SPRAY/16 GM NASL SCH (10:10)
[2019-10-04] MEDS: LORATADINE 10 MG TABLET PO SCH (10:11)
[2019-10-04] MEDS: PANTOPRAZOLE SODIUM 40 MG VIAL IV SCH (10:11)
[2019-10-04] MEDS: NORMAL SALINE 10 ML SDV (SCHEDULED) IV SCH (10:12)
[2019-10-04 13:32] VITALS: BP 132/79
[2019-10-04] MEDS ORDERED: INFLUENZA QUAD (6MOS+) 2019-20 VAC 0.5 ML SYR IM ONE (13:45)
--- NOTE | 2019-10-04 16:50 | PDOC DISCHARGE SUMMARY ---
Impression - Admit/DC Date/PCP Admission Date/Primary Care Provider: 09/23/19 23:03 LIZY ESCOBAR Discharge Date: 10/04/19 - Discharge Diagnosis (1) Acute pancreatitis Is this a current diagnosis for this admission?: Yes (2) Hypokalemia Is this a current diagnosis for this admission?: Yes - Assessment Summary: 10/01/2019 Pancreatitis-lipase is trending down. I am going to try sips of clears. We will discontinue pancreatic enzymes at this time. Continue to monitor lipase. CT scan of the abdomen showed no evidence of cholecystitis. No marked dilatation of ducts and no evidence of stones by CT scan. Hypokalemia-the patient is now on D5 normal saline with potassium. She is also taking a small dose of potassium chloride. If the oral diet increases then I will decrease the IV fluids. 10/02/2019 Lipase is slightly better. I did increase the pancreatic enzymes and moved her diet to full liquid. I adjusted her Valium, discontinue lorazepam and we will try temazepam for sleep. Continue to monitor lipase and adjust diet accordingly. I did order a lipid profile to see if she has underlying hypertriglyceridemia. - Additional Information Resuscitation Status: Full Code Discharge Diet: As Tolerated Discharge Activity: Activity As Tolerated Referrals: [facility] [Outside] - 10/20/19 3:30 pm (With Dr. Schmitz) Prescriptions: Zolpidem Tartrate [Ambien] 10 mg PO QHS PRN #5 tablet PRN Reason: Lipase/Protease/Amylase [Pancreaze-10 Capsule.] 1 cap PO AC #42 capsule. Home Medications: Estradiol 1 mg PO DAILY 09/24/19 Sumatriptan Succinate [Imitrex 50 mg Tablet] 50 mg PO DAILYP PRN 09/24/19 Zolpidem Tartrate [Ambien Cr] 12.5 mg PO QHS 09/24/19 Lipase/Protease/Amylase [Pancreaze-10 Capsule.] 1 cap PO AC #42 capsule. 10/04/19 Zolpidem Tartrate [Ambien] 10 mg PO QHS PRN #5 tablet 10/04/19 History of Present Illiness History of Present Illness: Admitting hospitalist's H&P: RUDDY PAN is a 53 year old female with a past medical history of tobacco, depression, bronchitis, COPD and alcoholism presents with 12 hours of palpitations, weakness, muscle cramping, shortness of breath, nausea and vomiting. She admits to 2 pints of alcohol per day labs reveal lipase over thousand, hypokalemia, microcytic anemia, elevated LFTs and an alcohol level of 93 and an elevated d-dimer. She receives Lovenox, thiamine and Ativan. Patient is allergic to IV contrast, V/Q scan is ordered but unavailable. She denies pain. And referred to the hospitalist for admission. Hospital Course Hospital Course: This is a 54-year-old female who presented with abdominal pain and was admitted for acute pancreatitis. Patient reports that she has not had an alcohol drinking for more than 20 years until recently due to marital issues with her . She said she was drinking 2 pints of vodka a day and she subsequently developed abdominal pain. She was initially made n.p.o. and started on IV fluids and IV pain meds. Her course was prolonged as she was also treated for alcohol withdrawal and trials to advance her diet resulted to recurrence of her abdominal pain. Eventually, she significantly improved. Diet was successfully advanced to a full regular diet which she tolerated well. Her abdominal pain also resolved. Physical Exam Vital Signs: Temp Pulse Resp BP Pulse Ox 97.7 F 92 16 132/79 H 94 10/04/19 13:30 10/04/19 13:30 10/04/19 13:30 10/04/19 13:30 10/04/19 13:30 Intake & Output 10/03/19 10/04/19 10/05/19 06:59 06:59 06:59 Intake Total 4421 4537 Output Total 2300 4285 Balance 2121 252 Weight 240 lb 11.916 oz 246 lb 11.156 oz 246 lb 11.156 oz General appearance: PRESENT: no acute distress, well-developed, well-nourished Head exam: PRESENT: atraumatic, normocephalic Eye exam: PRESENT: conjunctiva pink, EOMI, PERRLA. ABSENT: scleral icterus Ear exam: PRESENT: normal external ear exam Mouth exam: PRESENT: moist, tongue midline Neck exam: ABSENT: carotid bruit, JVD, lymphadenopathy, thyromegaly Respiratory exam: PRESENT: clear to auscultation [place]. ABSENT: rales, rhonchi, wheezes Cardiovascular exam: PRESENT: RRR. ABSENT: diastolic murmur, rubs, systolic murmur Pulses: PRESENT: normal dorsalis pedis pul GI/Abdominal exam: PRESENT: normal bowel sounds, soft. ABSENT: distended, guarding, mass, organolmegaly, rebound, tenderness Rectal exam: PRESENT: deferred Extremities exam: PRESENT: full ROM. ABSENT: calf tenderness, clubbing, pedal edema Neurological exam: PRESENT: alert, awake, oriented to person, oriented to place, oriented to time, oriented to situation, CN II-XII grossly intact. ABSENT: motor sensory deficit Results Laboratory Results: WBC 7.2 10^3/uL (4.0-10.5) 10/01/19 12:00 RBC 2.83 10^6/uL (3.72-5.28) L 10/01/19 12:00 Hgb 10.1 g/dL (12.0-15.5) L 10/01/19 12:00 Hct 29.4 % (36.0-47.0) L 10/01/19 12:00 MCV 104 fl (80-97) H 10/01/19 12:00 MCH 35.7 pg (27.0-33.4) H 10/01/19 12:00 MCHC 34.4 g/dL (32.0-36.0) 10/01/19 12:00 RDW 13.7 % (11.5-14.0) 10/01/19 12:00 Plt Count 303 10^3/uL (150-450) 10/01/19 12:00 Lymph % (Auto) 17.5 % (13-45) 10/01/19 12:00 [place] % (Auto) 15.8 % (3-13) H 10/01/19 12:00 Eos % (Auto) 5.3 % (0-6) 10/01/19 12:00 Baso % (Auto) 0.3 % (0-2) 10/01/19 12:00 Absolute Neuts (auto) 4.4 10^3/uL (1.7-8.2) 10/01/19 12:00 Absolute Lymphs (auto) 1.3 10^3/uL (0.5-4.7) 10/01/19 12:00 Absolute Monos (auto) 1.1 10^3/uL (0.1-1.4) 10/01/19 12:00 Absolute Eos (auto) 0.4 10^3/uL (0.0-0.6) 10/01/19 12:00 Absolute Basos (auto) 0.0 10^3/uL (0.0-0.2) 10/01/19 12:00 Seg Neutrophils % 61.1 % (42-78) 10/01/19 12:00 PT 12.9 SEC (11.4-15.4) 09/23/19 19:15 INR 0.97 09/23/19 19:15 APTT 31.1 SEC (23.5-35.8) 09/23/19 19:15 D-Dimer 3.47 ug/mL (0.00-0.50) H 09/23/19 19:15 Sodium 140.3 mmol/L (137-145) 10/03/19 05:12 Potassium 4.2 mmol/L (3.6-5.0) 10/03/19 20:35 Chloride 110 mmol/L (98-107) H 10/03/19 05:12 Carbon Dioxide 24 mmol/L (22-30) 10/03/19 05:12 Anion Gap 6 (5-19) 10/03/19 05:12 BUN < 2 mg/dL (7-20) L 10/03/19 05:12 Creatinine 0.54 mg/dL (0.52-1.25) 10/03/19 05:12 Est GFR ( Amer) > 60 (>60) 10/03/19 05:12 Est GFR (MDRD) Non-Af > 60 (>60) 10/03/19 05:12 Glucose 81 mg/dL (75-110) 10/03/19 05:12 POC Glucose 108 mg/dL (70-110) 10/01/19 11:49 Calcium 8.4 mg/dL (8.4-10.2) 10/03/19 05:12 Magnesium 1.9 mg/dL (1.6-2.3) 10/03/19 05:12 Total Bilirubin 0.2 mg/dL (0.2-1.3) 10/03/19 05:12 Direct Bilirubin 0.2 mg/dL (0.0-0.4) 10/03/19 05:12 Neonat Total Bilirubin Not Reportable 10/03/19 05:12 Neonat Direct Bilirubin Not Reportable 10/03/19 05:12 Neonat Indirect Bili Not Reportable 10/03/19 05:12 AST 41 U/L (14-36) H 10/03/19 05:12 ALT 36 U/L (<35) 10/03/19 05:12 Alkaline Phosphatase 172 U/L (38-126) H 10/03/19 05:12 Troponin I < 0.012 ng/mL 09/24/19 13:25 Total Protein 5.1 g/dL (6.3-8.2) L 10/03/19 05:12 Albumin 2.6 g/dL (3.5-5.0) L 10/03/19 05:12 Triglycerides 107 mg/dL (<150) 10/03/19 05:12 Cholesterol 153.57 mg/dL (0-200) 10/03/19 05:12 LDL Cholesterol Direct 94 mg/dL (<100) 10/03/19 05:12 VLDL Cholesterol 21.0 mg/dL (10-31) 10/03/19 05:12 HDL Cholesterol 44 mg/dL (>40) 10/03/19 05:12 Lipase 1639.8 U/L (23-300) H 10/03/19 05:12 TSH 2.38 uIU/mL (0.47-4.68) 10/03/19 05:12 Urine Color TAYLOR 09/24/19 09:15 Urine Appearance CLOUDY 09/24/19 09:15 Urine pH 6.0 (5.0-9.0) 09/24/19 09:15 Ur Specific [place] 1.016 09/24/19 09:15 Urine Protein 30 mg/dL (NEGATIVE) H 09/24/19 09:15 Urine Glucose (UA) NEGATIVE mg/dL (NEGATIVE) 09/24/19 09:15 Urine Ketones 20 mg/dL (NEGATIVE) H 09/24/19 09:15 Urine Blood NEGATIVE (NEGATIVE) 09/24/19 09:15 Urine Nitrite NEGATIVE (NEGATIVE) 09/24/19 09:15 Urine Bilirubin NEGATIVE (NEGATIVE) 09/24/19 09:15 Urine Urobilinogen NEGATIVE mg/dL (<2.0) 01/03/20 09:15 Ur Leukocyte Esterase TRACE (NEGATIVE) H 09/24/19 09:15 Urine WBC (Auto) 3 /HPF 09/24/19 09:15 Urine RBC (Auto) 1 /HPF 09/24/19 09:15 U Hyaline Cast (Auto) 13 /LPF 09/23/19 21:29 Urine Bacteria (Auto) TRACE /HPF 09/24/19 09:15 Squamous Epi Cells Auto 16 /HPF 09/24/19 09:15 Urine Mucus (Auto) MANY /LPF 09/24/19 09:15 Urine Ascorbic Acid NEGATIVE (NEGATIVE) 09/24/19 09:15 Salicylates < 1.0 mg/dL (2.0-20.0) L 09/23/19 19:15 Urine Opiates Screen NEGATIVE 09/23/19 21:29 Urine Methadone Screen NEGATIVE 09/23/19 21:29 Acetaminophen < 10 ug/mL (10-30) L 09/23/19 19:15 Ur Barbiturates Screen NEGATIVE 09/23/19 21:29 Ur Phencyclidine Scrn NEGATIVE 09/23/19 21:29 Ur Amphetamines Screen NEGATIVE 09/23/19 21:29 U Benzodiazepines Scrn NEGATIVE 09/23/19 21:29 Urine Cocaine Screen NEGATIVE 09/23/19 21:29 U Marijuana (THC) Screen NEGATIVE 09/23/19 21:29 Serum Alcohol 93 mg/dL (NONE DETECTED) 09/23/19 19:15 Influenza A (Rapid) NEGATIVE (NEGATIVE) 09/24/19 03:07 Influenza B (Rapid) NEGATIVE (NEGATIVE) 09/24/19 03:07 09/23/19 09/24/19 09/24/19 19:15 01:05 08:53 Troponin I < 0.012 < 0.012 < 0.012 09/24/19 13:25 Troponin I < 0.012 Impressions: Chest X-Ray 09/23/19 19:42 IMPRESSION: No acute findings. Lung Scan-VQ NM 09/24/19 00:00 IMPRESSION: NORMAL VENTILATION-PERFUSION LUNG SCAN. NEGATIVE FOR PULMONARY EMBOLI. Venous Doppler Study 09/24/19 00:00 IMPRESSION: NO EVIDENCE DVT OR SVT IN EITHER LEG. Abdomen/Pelvis CT 09/30/19 16:30 IMPRESSION: No definite acute inflammatory process in the abdomen and pelvis. No overt CT findings of pancreatitis. Small left pleural effusion. Guidance Fluoroscopy 10/01/19 00:00 IMPRESSION: Successful placement of a 5 Trin[place]adian double lumen PICC via the left brachial vein utilizing fluoroscopic and sonographic guidance. Interventional Vascular Procedure 10/01/19 00:00 IMPRESSION: Successful placement of a 5 Trinidadian double lumen PICC via the left brachial vein utilizing fluoroscopic and sonographic guidance. PICC Line Insertion 10/01/19 00:00 IMPRESSION: Successful placement of a 5 Trinid[place] double lumen PICC via the left brachial vein utilizing fluoroscopic and sonographic guidance. Stroke Is this a Stroke Patient?: No Acute Heart Failure - Is this a Heart Failure Patient?: No
== END 2019-10-04 14:58 | disposition home or self-care (01) | DRG 439 ==
LOC: ER 19:04 → EH 23:03 → 3N 09-24 16:00
PROVIDERS: ADMIT Hospitalist; ATTEND Hospitalist
PROC: 02HV33Z Insertion of Infusion Device into Superior Vena Cava, Percutaneous Approach (ICD-10-PCS; principal; 2019-10-01)
PROC: B518ZZA Fluoroscopy of Superior Vena Cava, Guidance (ICD-10-PCS; 2019-10-01)
PROC: B548ZZA Ultrasonography of Superior Vena Cava, Guidance (ICD-10-PCS; 2019-10-01)
PROC: 3E02340 Introduction of Influenza Vaccine into Muscle, Percutaneous Approach (ICD-10-PCS; 2019-10-04)
DX: K85.20 Alcohol induced acute pancreatitis without necrosis or infection (principal); F10.239 Alcohol dependence with withdrawal, unspecified; E87.6 Hypokalemia; K86.0 Alcohol-induced chronic pancreatitis; F32.9 Major depressive disorder, single episode, unspecified; J44.9 Chronic obstructive pulmonary disease, unspecified; Y90.4 Blood alcohol level of 80-99 mg/100 ml; Z90.710 Acquired absence of both cervix and uterus; F17.200 Nicotine dependence, unspecified, uncomplicated; Z88.2 Allergy status to sulfonamides; Z88.8 Allergy status to other drugs, medicaments and biological substances; D64.9 Anemia, unspecified; Z86.718 Personal history of other venous thrombosis and embolism; E66.9 Obesity, unspecified; Z91.041 Radiographic dye allergy status; R79.1 Abnormal coagulation profile; R19.7 Diarrhea, unspecified; Z23 Encounter for immunization
CPT/HCPCS: 36415; 36569; 71046; 74176; 76937; 77001; 78582; 80048; 80053; 80061; 80307; 81001; 82962; 83690; 83735; 84132; 84443; 84484; 85025; 85027; 85379; 85610; 85730; 87804; 90686; 93005; 93010; 93970; 96374; 96375; 96376; 99285; A9540; A9567; C9113; J1642; J1644; J1650; J2060; J2405; J2765; J3360; J3411; J3475; J3480; J3490; J7030; J7050; J7620; Q9969

== ENCOUNTER → 2019-10-19 | Outpatient (CLI) | payer OTHER ==
[2019-10-19 11:36] LABS: ABSOLUTE BASOPHILS # (AUTO) 0.1 10^3/uL (0.0-0.2); ABSOLUTE EOSINOPHILS # (AUTO) 0.9 10^3/uL (0.0-0.6); ABSOLUTE LYMPHOCYTES (AUTO) 2.3 10^3/uL (0.5-4.7); ABSOLUTE MONOCYTES (AUTO) 0.7 10^3/uL (0.1-1.4); ABSOLUTE NEUT (AUTO) 3.5 10^3/uL (1.7-8.2); BASOPHILS % (AUTO) 1.3 % (0-2); EOSINOPHILS % (AUTO) 12.2 % (0-6); HEMATOCRIT 41.2 % (36.0-47.0); LYMPHOCYTES % (AUTO) 30.7 % (13-45); MEAN CORPUSCULAR HEMOGLOBIN 34.7 pg (27.0-33.4); MEAN CORPUSCULAR HGB CONC 33.9 g/dL (32.0-36.0); MEAN CORPUSCULAR VOLUME 102 fl (80-97); MONOCYTES % (AUTO) 9.8 % (3-13); PLATELET COUNT 424 10^3/uL (150-450); RED BLOOD COUNT 4.02 10^6/uL (3.72-5.28); RED CELL DISTRIBUTION WIDTH 14.3 % (11.5-14.0); TOTAL CELLS COUNTED % (AUTO) 100 %; WHITE BLOOD COUNT 7.6 10^3/uL (4.0-10.5)
[2019-10-19 12:03] LABS: ALKALINE PHOSPHATASE 101 U/L (38-126); ANION GAP 8 (5-19); ASPARTATE AMINO TRANSFERASE 45 U/L (14-36); BILIRUBIN,DIRECT 0.1 mg/dL (0.0-0.4); BILIRUBIN,TOTAL 0.3 mg/dL (0.2-1.3); BLOOD UREA NITROGEN 15 mg/dL (7-20); CALCIUM 9.5 mg/dL (8.4-10.2); CARBON DIOXIDE 27 mmol/L (22-30); CHLORIDE 103 mmol/L (98-107); GLUCOSE 90 mg/dL (75-110); POTASSIUM 4.5 mmol/L (3.6-5.0)
== END ==
LOC: LAB 11:22
PROVIDERS: ATTEND Nurse Practitioner
DX: K85.20 Alcohol induced acute pancreatitis without necrosis or infection (principal)
CPT/HCPCS: 36415; 80053; 83690; 85025

== ENCOUNTER → 2019-10-21 | Outpatient (CLI) | payer OTHER ==
--- NOTE | 2019-10-21 12:35 | RADIOLOGY REPORT (SQ) ---
EXAM DESCRIPTION: CT ABD/PELVIS NO ORAL OR IV COMPLETED DATE/TIME: 10/21/2019 10:46 am REASON FOR STUDY: ALCOHOL INDUCED ACUTE PANCREATITIS W/O NECROSIS OR INFECTION (K85.20) K85.20 ALCO HOL INDUCED ACUTE PANCREATITIS WITHOUT NECROSIS O COMPARISON: CT abdomen pelvis 09/30/2019 TECHNIQUE: CT scan of the abdomen and pelvis performed without intravenous or oral contrast. Images reviewed with lung, soft tissue, and bone windows. Reconstructed coronal and sagittal MPR images revi ewed. All images stored on PACS. All CT scanners at this facility use dose modulation, iterative reconstruction, and/or weight based d osing when appropriate to reduce radiation dose to as low as reasonably achievable (ALARA). [facility]: Dose Right [facility]: CareDose [facility]: Dose Right [facility]: Teradose 4D [facility]: Smart [email or web address] RADIATION DOSE: CT Rad equipment meets quality standard of care and radiation dose reduction techniq ues were employed. CTDIvol: 15.5 mGy. DLP: 887 mGy-cm.mGy. LIMITATIONS: None. FINDINGS: LOWER CHEST: No significant findings. No nodules or infiltrates. NON-CONTRASTED LIVER, SPLEEN, ADRENALS: Evaluation limited by lack of IV contrast. No identified sign ificant masses. PANCREAS: No masses. No peripancreatic inflammatory changes. GALLBLADDER: No identified stones by CT criteria. No inflammatory changes to suggest cholecystitis. RIGHT KIDNEY AND URETER: No suspicious masses. Assessment limited by lack of IV contrast. No signif icant calcifications. No hydronephrosis or hydroureter. LEFT KIDNEY AND URETER: No suspicious masses. Assessment limited by lack of IV contrast. No signifi cant calcifications. No hydronephrosis or hydroureter. AORTA AND RETROPERITONEUM: No aneurysm. No retroperitoneal masses or adenopathy. BOWEL AND PERITONEAL CAVITY: No obvious masses or inflammatory changes. No free fluid. APPENDIX: Normal on sagittal image 24 PELVIS, BLADDER, AND ABDOMINAL WALL:No abnormal masses. No free fluid. Bladder normal. Post hysterec tameka BONES: No significant findings. OTHER: No other significant finding. IMPRESSION: NO SIGNIFICANT OR ACUTE PROCESS IN THE ABDOMEN OR PELVIS. COMMENT: Quality ID # [id number]: Final reports with documentation of one or more dose reduction techniques (e.g., Automated exposure control, adjustment of the mA and/or kV according to patient size, use of iterative reconstruction technique) TECHNICAL DOCUMENTATION: JOB ID: [id number] [employer]- All Rights Reserved Reading location - IP/workstation name: [email or web address]
== END ==
LOC: RAD 10:21
PROVIDERS: ATTEND Nurse Practitioner
DX: K85.20 Alcohol induced acute pancreatitis without necrosis or infection (principal)
CPT/HCPCS: 74176

== ENCOUNTER → 2019-11-17 | Outpatient (CLI) | payer OTHER | LOC: LAB 09:41 | PROVIDERS: ATTEND Nurse Practitioner | DX: K85.20 Alcohol induced acute pancreatitis without necrosis or infection (principal) | CPT/HCPCS: 36415; 83690 ==

== ENCOUNTER 2020-03-28 21:39 | Inpatient (IN) | payer OTHER ==
[2020-03-28 22:13] LABS: ABSOLUTE BASOPHILS # (AUTO) 0.1 10^3/uL (0.0-0.2); ABSOLUTE EOSINOPHILS # (AUTO) 0.1 10^3/uL (0.0-0.6); ABSOLUTE LYMPHOCYTES (AUTO) 3.2 10^3/uL (0.5-4.7); ABSOLUTE MONOCYTES (AUTO) 0.4 10^3/uL (0.1-1.4); ABSOLUTE NEUT (AUTO) 3.7 10^3/uL (1.7-8.2); BASOPHILS % (AUTO) 1.1 % (0-2); EOSINOPHILS % (AUTO) 1.5 % (0-6); HEMOGLOBIN 13.1 g/dL (12.0-15.5); LYMPHOCYTES % (AUTO) 42.3 % (13-45); MEAN CORPUSCULAR HEMOGLOBIN 35.1 pg (27.0-33.4); MEAN CORPUSCULAR HGB CONC 34.4 g/dL (32.0-36.0); MEAN CORPUSCULAR VOLUME 102 fl (80-97); MONOCYTES % (AUTO) 5.7 % (3-13); PLATELET COUNT 307 10^3/uL (150-450); RED BLOOD COUNT 3.72 10^6/uL (3.72-5.28); RED CELL DISTRIBUTION WIDTH 16.6 % (11.5-14.0); SEGMENTED NEUTROPHILS % (AUTO) 49.4 % (42-78); TOTAL CELLS COUNTED % (AUTO) 100 %; WHITE BLOOD COUNT 7.5 10^3/uL (4.0-10.5)
[2020-03-28 22:17] LABS: APPEARANCE,URINE CLEAR; BILIRUBIN,URINE NEGATIVE (NEGATIVE); COLOR,URINE STRAW; GLUCOSE, URINE NEGATIVE (NEGATIVE); KETONES,URINE NEGATIVE (NEGATIVE); LEUKOCYTE ESTERASE,URINE NEGATIVE (NEGATIVE); NITRITE,URINE NEGATIVE (NEGATIVE); PROTEIN,URINE NEGATIVE (NEGATIVE); URINE SPECIFIC GRAVITY 1.002; UROBILINOGEN,URINE NEGATIVE mg/dL (<2.0)
[2020-03-28 22:35] LABS: URINE AMPHETAMINES SCREEN NEGATIVE; URINE BARBITURATES SCREEN NEGATIVE; URINE BENZODIAZEPINES SCREEN NEGATIVE; URINE COCAINE SCREEN NEGATIVE; URINE MARIJUANA (THC) SCREEN NEGATIVE; URINE METHADONE SCREEN NEGATIVE; URINE PHENCYCLIDINE SCREEN NEGATIVE
[2020-03-28 22:48] LABS: ALBUMIN 3.8 g/dL (3.5-5.0); ALCOHOL 260 mg/dL (NONE DETECTED); ALKALINE PHOSPHATASE 258 U/L (38-126); ANION GAP 13 (5-19); ASPARTATE AMINO TRANSFERASE 632 U/L (14-36); BILIRUBIN,DIRECT 0.2 mg/dL (0.0-0.4); BILIRUBIN,TOTAL 0.7 mg/dL (0.2-1.3); BLOOD UREA NITROGEN 4 mg/dL (7-20); CARBON DIOXIDE 27 mmol/L (22-30); CHLORIDE 99 mmol/L (98-107); GLUCOSE 85 mg/dL (75-110); TOTAL PROTEIN 6.6 g/dL (6.3-8.2)
[2020-03-28 22:52] LABS: ACETAMINOPHEN < 10 ug/mL (10-30); SALICYLATE < 1.0 mg/dL (2.0-20.0)
[2020-03-28 22:53] LABS: POTASSIUM 2.8 mmol/L (3.6-5.0)
[2020-03-28] MEDS ORDERED: DEXTROSE 5%-NORMAL SALINE 1,000 ML IV ONE (23:06)
[2020-03-28] MEDS ORDERED: THIAMINE HCL 100 MG, FOLIC ACID 1 MG in NORMAL SALINE 250 ML IV ONE (23:08)
[2020-03-28] MEDS ORDERED: FAMOTIDINE INJ/PF 20 MG/2 ML SDV IV ONE (23:09)
[2020-03-29] MEDS ORDERED: FOLIC ACID INJ 5 MG/1 ML 10 ML VIAL ONE (00:04)
[2020-03-29] MEDS ORDERED: THIAMINE HCL INJ 200 MG/2 ML VIAL ONE (00:04)
[2020-03-29] MEDS ORDERED: POTASSIUM CHLORIDE 20 MEQ PACKET PO ONE ×2 (00:38→01:22)
[2020-03-29] MEDS: POTASSI CL 20 MEQ/50 ML RIDER 20 MEQ/50 ML RTUPB IV SCH ×4 (01:07→08:49)
--- NOTE | 2020-03-29 01:11 | RADIOLOGY REPORT (SQ) ---
AP Portable chest: 03/29/2020 12:10 AM CDT History: 54-year old patient with hypoxia. Comparison: None available Findings: The cardiomediastinal silhouette is normal in size. No pneumothorax is seen. No acute airspace opacities are seen. No discrete pleural effusion is apparent. There is elevation of the right hemidiaphragm. Impression: No acute airspace opacities are seen.
[2020-03-29 01:37] LABS: INTERNATIONAL RATION (INR) 2.67; PARTIAL THROMBOPLASTIN TIME 33.7 SEC (23.5-35.8)
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
[2020-03-29] MEDS: LORAZEPAM 1 MG TABLET PO PRN ×3 (05:03→17:12)
[2020-03-29 05:18] LABS: ALCOHOL 48 mg/dL (NONE DETECTED); ANION GAP 12 (5-19); BLOOD UREA NITROGEN 4 mg/dL (7-20); CALCIUM 8.6 mg/dL (8.4-10.2); CARBON DIOXIDE 22 mmol/L (22-30); CHLORIDE 103 mmol/L (98-107); GLUCOSE 96 mg/dL (75-110)
[2020-03-29 05:30] LABS: POTASSIUM 2.8 mmol/L (3.6-5.0)
[2020-03-29] MEDS ORDERED: POTASSIUM CHLORIDE 10 MEQ TABLET.ER PO ONE (05:37)
[2020-03-29] MEDS ORDERED: LORAZEPAM INJ 2 MG/1 ML VIAL IV ONE (05:46)
[2020-03-29] MEDS ORDERED: MAGNESIUM SULFATE/D5W 1 GM/100 ML RTUPB IV ONE (06:19)
[2020-03-29 07:18] LABS: PROTHROMBIN TIME 30.9 SEC (11.4-15.4)
[2020-03-29 07:33] LABS: ACETAMINOPHEN < 10 ug/mL (10-30); SALICYLATE < 1.0 mg/dL (2.0-20.0)
--- NOTE | 2020-03-29 07:33 | EKG REPORT ---
SEVERITY:- ABNORMAL ECG - SINUS RHYTHM ABNORMAL T, CONSIDER ISCHEMIA, DIFFUSE LEADS BORDERLINE PROLONGED QT INTERVAL : Confirmed by: Eugene Ann MD 29-Mar-2020 07:33:10
--- NOTE | 2020-03-29 07:33 | EKG REPORT ---
SEVERITY:- ABNORMAL ECG - SINUS TACHYCARDIA NONSPECIFIC T ABNORMALITIES, LATERAL LEADS : Confirmed by: Eugene Ann MD 29-Mar-2020 07:32:48
[2020-03-29 07:34] LABS: ALBUMIN 3.3 g/dL (3.5-5.0); ALKALINE PHOSPHATASE 218 U/L (38-126); ANION GAP 8 (5-19); ASPARTATE AMINO TRANSFERASE 563 U/L (14-36); BILIRUBIN,DIRECT 0.3 mg/dL (0.0-0.4); BLOOD UREA NITROGEN 5 mg/dL (7-20); CALCIUM 8.2 mg/dL (8.4-10.2); CARBON DIOXIDE 26 mmol/L (22-30); CHLORIDE 102 mmol/L (98-107); GLUCOSE 95 mg/dL (75-110); POTASSIUM 3.1 mmol/L (3.6-5.0); TOTAL PROTEIN 5.9 g/dL (6.3-8.2)
[2020-03-29] MEDS ORDERED: LORAZEPAM INJ 2 MG/1 ML VIAL IV PRN (08:38)
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
[2020-03-29] MEDS ORDERED: MAG HYDROX/AL HYDROX/SIMETH SUSP 30 ML UDCUP PO PRN (08:58)
[2020-03-29] MEDS ORDERED: DOCUSATE SODIUM 100 MG CAPSULE PO PRN (08:58)
[2020-03-29] MEDS ORDERED: PROMETHAZINE HCL INJ 25 MG/1 ML VIAL IV PRN (08:58)
[2020-03-29] MEDS ORDERED: MAGNESIUM HYDROXIDE SUSP 30 ML UDCUP PO PRN (08:58)
[2020-03-29] MEDS ORDERED: ACETAMINOPHEN 325 MG TABLET PO PRN (08:58)
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
[2020-03-29] MEDS ORDERED: PHARMACY COMMUNICATION ORDER MC NR (09:15)
[2020-03-29] MEDS: DIAZEPAM 5 MG TABLET PO SCH ×3 (09:48→21:34)
[2020-03-29] MEDS: FAMOTIDINE 20 MG TABLET PO SCH ×2 (10:59→21:35)
[2020-03-29] MEDS: VITAMIN B COMPLEX TABLET PO SCH (10:59)
[2020-03-29] MEDS: MULTIVITAMIN TABLET PO SCH (10:59)
[2020-03-29] MEDS: THIAMINE HCL 100 MG, FOLIC ACID 1 MG in NORMAL SALINE 250 ML IV SCH (10:59)
[2020-03-29] MEDS: POTASSIUM CHLORIDE 10 MEQ TABLET.ER PO SCH ×2 (10:59→21:34)
--- NOTE | 2020-03-29 12:03 | PSYCHOLOGICAL NOTE ---
Psych Note - Psych Note Date seen by psych provider: 03/29/20 Time seen by psych provider: 11:30 Psych Note: Impression/Plan: Patient is cleared from acute psychiatric services
[2020-03-29] MEDS ORDERED: HEPARIN SOD (PORCINE) 5,000 UNIT/ML 1 ML VIAL SUBCUT SCH (14:00)
[2020-03-29 15:31] LABS: ANION GAP 5 (5-19); BLOOD UREA NITROGEN 7 mg/dL (7-20); CALCIUM 8.2 mg/dL (8.4-10.2); CARBON DIOXIDE 25 mmol/L (22-30); CHLORIDE 106 mmol/L (98-107); GLUCOSE 112 mg/dL (75-110)
[2020-03-29 15:43] LABS: POTASSIUM 4.2 mmol/L (3.6-5.0)
[2020-03-29] MEDS: TRAMADOL HCL 50 MG TABLET PO PRN (17:41)
[2020-03-29] MEDS: RINGERS SOLUTION,LACTATED 1,000 ML IV PRN (17:45)
[2020-03-29] MEDS ORDERED: TRAZODONE HCL 50 MG TABLET PO PRN (18:32)
[2020-03-29] MEDS: BUPROPION HCL 100 MG TABLET PO SCH (21:34)
[2020-03-30] MEDS: LORAZEPAM 1 MG TABLET PO PRN ×4 (00:40→18:43)
[2020-03-30] MEDS: TRAMADOL HCL 50 MG TABLET PO PRN ×3 (00:41→17:01)
[2020-03-30] MEDS: RINGERS SOLUTION,LACTATED 1,000 ML IV PRN ×3 (00:42→21:17)
[2020-03-30] MEDS: BUPROPION HCL 100 MG TABLET PO SCH ×3 (05:54→21:17)
[2020-03-30] MEDS: DIAZEPAM 5 MG TABLET PO SCH ×3 (05:55→21:17)
--- NOTE | 2020-03-30 06:50 | RADIOLOGY REPORT (SQ) ---
Ultrasound abdomen: 03/30/2020 5:48 AM CDT Technique: Multiple grayscale and color Doppler images of the abdomen were obtained. Comparison: CT of abdomen and pelvis from 09/30/2019 History: 54-year old patient with hepatitis, concern for underlying hepatic cirrhosis. Findings: The visualized portions of the hepatic parenchyma appears heterogeneous and diffusely echogenic. The hepatic parenchyma appears to be enlarged. There is normal direction of flow is seen in the main portal vein. There is no evidence of pericholecystic fluid, gallbladder wall thickening, or cholelithiasis. The common duct measures 2-3 mm. The right kidney measures up to 9.6 cm in length. The left kidney measures 10.1 cm in length. Both kidneys demonstrate normal cortical echogenicity with no evidence to suggest hydronephrosis. The spleen measures up to 10.9 cm in length, and is normal in size. The visualized portions of the IVC, abdominal aorta, and pancreatic head appear normal. No free intraperitoneal fluid is seen. Impression: 1. No cholelithiasis is seen. The common duct is within normal limits of size. 2. Hepatic steatosis
[2020-03-30 07:13] LABS: ALBUMIN 2.9 g/dL (3.5-5.0); ALKALINE PHOSPHATASE 197 U/L (38-126); ASPARTATE AMINO TRANSFERASE 405 U/L (14-36); BILIRUBIN,DIRECT 0.2 mg/dL (0.0-0.4); BILIRUBIN,TOTAL 1.1 mg/dL (0.2-1.3); BLOOD UREA NITROGEN 9 mg/dL (7-20); CALCIUM 8.5 mg/dL (8.4-10.2); CHOLESTEROL 143.69 mg/dL (0-200); GLUCOSE 90 mg/dL (75-110); POTASSIUM 4.1 mmol/L (3.6-5.0); TOTAL PROTEIN 5.5 g/dL (6.3-8.2); TRIGLYCERIDES 85 mg/dL (<150)
[2020-03-30 07:17] LABS: CARBON DIOXIDE 27 mmol/L (22-30); CHLORIDE 107 mmol/L (98-107)
[2020-03-30 07:20] LABS: ANION GAP 3 (5-19)
[2020-03-30 07:24] LABS: DIRECT LDL 91 mg/dL (<100)
--- NOTE | 2020-03-30 07:48 | EKG REPORT ---
SEVERITY:- BORDERLINE ECG - SINUS RHYTHM BORDERLINE PROLONGED QT INTERVAL : Confirmed by: Eugene Ann MD 30-Mar-2020 07:47:45
[2020-03-30] MEDS ORDERED: (PENDING PHARMACY ID) (Bupropion Hcl [Bupropion Xl] 300 MG) PO SCH (10:00)
[2020-03-30] MEDS ORDERED: (PENDING PHARMACY ID) (Estradiol [Estradiol] 1 MG) PO SCH (10:00)
[2020-03-30] MEDS: POTASSIUM CHLORIDE 10 MEQ TABLET.ER PO SCH ×2 (10:10→21:17)
[2020-03-30] MEDS: VITAMIN B COMPLEX TABLET PO SCH (10:10)
[2020-03-30] MEDS: FAMOTIDINE 20 MG TABLET PO SCH ×2 (10:10→21:17)
[2020-03-30] MEDS: THIAMINE HCL 100 MG, FOLIC ACID 1 MG in NORMAL SALINE 250 ML IV SCH (10:11)
[2020-03-30] MEDS: MULTIVITAMIN TABLET PO SCH (10:11)
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
[2020-03-30 15:04] LABS: APPEARANCE,URINE SLIGHTLY-CLOUDY; BILIRUBIN,URINE NEGATIVE (NEGATIVE); COLOR,URINE YELLOW; GLUCOSE, URINE NEGATIVE (NEGATIVE); KETONES,URINE NEGATIVE (NEGATIVE); LEUKOCYTE ESTERASE,URINE NEGATIVE (NEGATIVE); NITRITE,URINE NEGATIVE (NEGATIVE); PROTEIN,URINE NEGATIVE (NEGATIVE); UROBILINOGEN,URINE NEGATIVE mg/dL (<2.0)
[2020-03-30] MEDS: ZOLPIDEM TARTRATE 5 MG TABLET PO PRN (21:17)
[2020-03-31] MEDS: TRAMADOL HCL 50 MG TABLET PO PRN ×5 (02:23→22:54)
[2020-03-31] MEDS: LORAZEPAM 1 MG TABLET PO PRN ×5 (02:23→22:55)
[2020-03-31 05:38] LABS: HEPATITS B SURFACE ANTIGEN Negative (Negative)
[2020-03-31] MEDS: DIAZEPAM 5 MG TABLET PO SCH (05:57)
[2020-03-31] MEDS: BUPROPION HCL 100 MG TABLET PO SCH ×3 (05:57→21:21)
[2020-03-31 06:59] LABS: INTERNATIONAL RATION (INR) 1.71; PROTHROMBIN TIME 20.3 SEC (11.4-15.4)
[2020-03-31 07:03] LABS: HEPATITIS C VIRUS ANTIBODY <0.1 s/co ratio (0.0-0.9)
[2020-03-31 07:09] LABS: ALBUMIN 3.1 g/dL (3.5-5.0); ALKALINE PHOSPHATASE 205 U/L (38-126); ASPARTATE AMINO TRANSFERASE 489 U/L (14-36); BILIRUBIN,DIRECT 0.5 mg/dL (0.0-0.4); BILIRUBIN,TOTAL 1.4 mg/dL (0.2-1.3); BLOOD UREA NITROGEN 9 mg/dL (7-20); CALCIUM 8.9 mg/dL (8.4-10.2); CARBON DIOXIDE 29 mmol/L (22-30); GLUCOSE 102 mg/dL (75-110); POTASSIUM 4.5 mmol/L (3.6-5.0); TOTAL PROTEIN 5.7 g/dL (6.3-8.2)
[2020-03-31 07:14] LABS: ANION GAP 5 (5-19); CHLORIDE 103 mmol/L (98-107)
[2020-03-31] MEDS ORDERED: LORAZEPAM INJ 2 MG/1 ML VIAL IV PRN (08:42)
[2020-03-31] MEDS: THIAMINE HCL 100 MG TABLET PO SCH (10:10)
[2020-03-31] MEDS: MULTIVITAMIN TABLET PO SCH (10:10)
[2020-03-31] MEDS: FAMOTIDINE 20 MG TABLET PO SCH ×2 (10:10→21:21)
[2020-03-31] MEDS: POTASSIUM CHLORIDE 10 MEQ TABLET.ER PO SCH ×2 (10:10→21:19)
[2020-03-31] MEDS: FOLIC ACID 1 MG TABLET PO SCH (10:10)
[2020-03-31] MEDS: VITAMIN B COMPLEX TABLET PO SCH (10:10)
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
[2020-03-31] MEDS ORDERED: DIAZEPAM 5 MG TABLET PO SCH (14:00)
[2020-03-31] MEDS ORDERED: PHYTONADIONE 5 MG TABLET PO ONE (14:00)
[2020-03-31] MEDS: ZOLPIDEM TARTRATE 5 MG TABLET PO PRN (21:21)
[2020-04-01] MEDS: TRAMADOL HCL 50 MG TABLET PO PRN ×2 (02:54→09:14)
[2020-04-01] MEDS: LORAZEPAM 1 MG TABLET PO PRN (02:54)
[2020-04-01] MEDS: BUPROPION HCL 100 MG TABLET PO SCH (05:02)
[2020-04-01 06:30] LABS: INTERNATIONAL RATION (INR) 1.18; PROTHROMBIN TIME 15.1 SEC (11.4-15.4)
[2020-04-01 06:54] LABS: ALBUMIN 3.7 g/dL (3.5-5.0); ALKALINE PHOSPHATASE 233 U/L (38-126); ANION GAP 7 (5-19); ASPARTATE AMINO TRANSFERASE 369 U/L (14-36); BILIRUBIN,DIRECT 0.6 mg/dL (0.0-0.4); BILIRUBIN,TOTAL 1.5 mg/dL (0.2-1.3); BLOOD UREA NITROGEN 12 mg/dL (7-20); CALCIUM 9.4 mg/dL (8.4-10.2); CARBON DIOXIDE 28 mmol/L (22-30); CHLORIDE 101 mmol/L (98-107); GLUCOSE 95 mg/dL (75-110); POTASSIUM 4.6 mmol/L (3.6-5.0); TOTAL PROTEIN 6.4 g/dL (6.3-8.2)
[2020-04-01] MEDS: POTASSIUM CHLORIDE 10 MEQ TABLET.ER PO SCH (09:14)
[2020-04-01] MEDS: VITAMIN B COMPLEX TABLET PO SCH (09:14)
[2020-04-01] MEDS: FAMOTIDINE 20 MG TABLET PO SCH (09:14)
[2020-04-01] MEDS: MULTIVITAMIN TABLET PO SCH (09:14)
[2020-04-01] MEDS: FOLIC ACID 1 MG TABLET PO SCH (09:15)
[2020-04-01] MEDS: THIAMINE HCL 100 MG TABLET PO SCH (09:15)
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
[2020-04-01 12:43] VITALS: BP 133/68
== END 2020-04-01 13:15 | disposition home or self-care (01) | DRG 897 ==
LOC: ER 21:39 → EH 03-29 07:40 → 4S 03-29 14:04
PROVIDERS: ADMIT Hospitalist; ATTEND Internal Medicine
DX: F10.239 Alcohol dependence with withdrawal, unspecified (principal); F33.1 Major depressive disorder, recurrent, moderate; D68.9 Coagulation defect, unspecified; F10.229 Alcohol dependence with intoxication, unspecified; F10.282 Alcohol dependence with alcohol-induced sleep disorder; K70.10 Alcoholic hepatitis without ascites; E87.6 Hypokalemia; R94.31 Abnormal electrocardiogram [ECG] [EKG]; J44.9 Chronic obstructive pulmonary disease, unspecified; G43.909 Migraine, unspecified, not intractable, without status migrainosus; Y90.8 Blood alcohol level of 240 mg/100 ml or more
CPT/HCPCS: 36415; 71045; 76700; 80048; 80053; 80061; 80074; 80307; 81001; 81005; 82607; 82746; 82977; 83690; 83735; 85025; 85610; 85730; 87070; 93005; 93010; 93976; 96361; 96365; 96375; 99291; J2060; J3411; J3475; J3480; J3490; J7042; J7050; J7120; S0028

== ENCOUNTER 2020-05-26 05:54 | Inpatient (IN) | payer OTHER ==
[2020-05-26] MEDS ORDERED: NORMAL SALINE 1000 ML 1,000 ML IV ONE (09:18)
[2020-05-26 10:08] LABS: ABSOLUTE LYMPHOCYTES (AUTO) 0.9 10^3/uL (0.5-4.7); ABSOLUTE MONOCYTES (AUTO) 0.5 10^3/uL (0.1-1.4); ABSOLUTE NEUT (AUTO) 4.5 10^3/uL (1.7-8.2); BASOPHILS % (AUTO) 0.6 % (0-2); EOSINOPHILS % (AUTO) 0.1 % (0-6); HEMATOCRIT 41.6 % (36.0-47.0); HEMOGLOBIN 14.6 g/dL (12.0-15.5); LYMPHOCYTES % (AUTO) 14.4 % (13-45); MEAN CORPUSCULAR HEMOGLOBIN 35.3 pg (27.0-33.4); MEAN CORPUSCULAR HGB CONC 35.2 g/dL (32.0-36.0); MEAN CORPUSCULAR VOLUME 100 fl (80-97); MONOCYTES % (AUTO) 9.2 % (3-13); PLATELET COUNT 211 10^3/uL (150-450); RED BLOOD COUNT 4.15 10^6/uL (3.72-5.28); RED CELL DISTRIBUTION WIDTH 14.9 % (11.5-14.0); SEGMENTED NEUTROPHILS % (AUTO) 75.7 % (42-78); TOTAL CELLS COUNTED % (AUTO) 100 %
[2020-05-26 10:36] LABS: ALBUMIN 4.7 g/dL (3.5-5.0); ALKALINE PHOSPHATASE 375 U/L (38-126); ANION GAP 16 (5-19); BILIRUBIN,DIRECT 3.7 mg/dL (0.0-0.4); BILIRUBIN,TOTAL 5.4 mg/dL (0.2-1.3); BLOOD UREA NITROGEN 9 mg/dL (7-20); CALCIUM 9.7 mg/dL (8.4-10.2); CARBON DIOXIDE 30 mmol/L (22-30); CHLORIDE 89 mmol/L (98-107); GLUCOSE 162 mg/dL (75-110); POTASSIUM 3.1 mmol/L (3.6-5.0); TOTAL PROTEIN 7.9 g/dL (6.3-8.2)
[2020-05-26 10:46] LABS: ASPARTATE AMINO TRANSFERASE 1270 U/L (14-36)
--- NOTE | 2020-05-26 10:53 | ER Document Report ---
ED General - General Chief Complaint: Alcohol Withdrawl Stated Complaint: NAUSEA/VOMITING/ABDOMINAL PAIN Time Seen by Provider: 05/26/20 10:12 Primary Care Provider: VINNY CHILEL FNP [Primary Care Provider] - Follow up as needed TRAVEL OUTSIDE OF THE [place] IN LAST 30 DAYS: No - HPI Notes: Chief complaint: Alcohol withdrawal History of present illness: 54-year-old female with longstanding history of chronic alcoholism previously admitted here approximately 2 months ago for alcohol withdrawal syndrome now returns the emergency department for same. Patient states that she has remained off alcohol until approximately 1 month ago when she started drinking again. She presently consumes in excess of 2 pints of vodka per day. Last drink was at 4 AM today. She complains of having "dry heaves" with streaks of blood. She also complains of epigastric burning. She feels very tremulous but denies any auditory or visual hallucinations. No seizures. Extensive records are reviewed from prior hospitalizations. Patient is previ ously had alcoholic gastritis, alcoholic hepatitis and alcoholic pancreatitis. Resuscitation Status: Full Code VINNY CHILEL FNP [Primary Care Provider] - Home Medications: Estradiol 1 mg PO DAILY 09/24/19 Zolpidem Tartrate [Ambien Cr] 12.5 mg PO HSP PRN 09/24/19 Bupropion HCl [Bupropion Xl] 300 mg PO DAILY 03/29/20 Trazodone HCl [Desyrel 50 mg Tablet] 50 mg PO HSP PRN 03/29/20 Famotidine [Pepcid 20 mg Tablet] 20 mg PO Q12 #60 tablet 04/01/20 Multivitamin [Tab-A-Nilsa (Multiple Vitamin) Tablet] 1 tab PO DAILY tablet 04/01/20 Potassium Chloride 40 meq PO DAILY 10 Days tablet.er 04/01/20 Thiamine HCl [Thiamine 100 mg Tablet] 100 mg PO DAILY #14 tablet 04/01/20 - Related Data Allergies/Adverse Reactions: iodine [Iodine] Allergy (Severe, Verified 08/22/13 17:08) Sulfa (Sulfonamide Antibiotics) Allergy (Severe, Verified 08/22/13 17:08) Past Medical History - General Information source: Patient, [facility] Records - Social History Smoking Status: Never Smoker Chew tobacco use (# tins/day): No Frequency of alcohol use: Heavy Drug Abuse: None Lives with: Family Family History: Arthritis, COPD, Other - Patient also reports family history of bladder "problems " - Past Medical History Cardiac Medical History: Denies: Hx Coronary Artery Disease, Hx Heart Attack, Hx Hypertension Pulmonary Medical History: Reports: Hx Bronchitis - Asthmatic Broncitis occa sionally, Hx COPD, Hx Pneumonia Denies: Hx Asthma Neurological Medical History: Reports: Hx Migraine. Denies: Hx Cerebrovascular Accident, Hx Seizures Endocrine Medical History: Denies: Hx Diabetes Mellitus Type 2 GI Medical History: Reports: Hx Hepatitis - Alcohol related Musculoskeletal Medical History: Denies Hx Arthritis Skin Medical History: Denies Hx Eczema, Denies Hx Psoriasis Psychiatric Medical History: Reports: Hx Depression Infectious Medical History: Reports: Hx Hepatitis - Alcohol related. Denies: Hx HIV Past Surgical History: Reports: Hx Hysterectomy, Hx Orthopedic Surgery - Ankle, Other - Possible left parotid gland removal. Denies: Hx Pacemaker - Immunizations Hx Diphtheria, Pertussis, Tetanus Vaccination: Yes Hx Pneumococcal Vaccination: 06/22/10 Review of Systems - Review of Systems Notes: Constitutional: Negative for fever. HENT: Negative for sore throat. Eyes: Negative for visual changes. Cardiovascular: Negative for chest pain. Respiratory: Negative for shortness of breath. Gastrointestinal: As per HPI. Genitourinary: Negative for dysuria. Musculoskeletal: Negative for back pain. Skin: Negative for rash. Neurological: As per HPI. 10 point ROS negative except as marked above and in HPI. Physical Exam - Vital signs Vitals: Temp Pulse BP Pulse Ox 97.9 F 114 H 137/84 H 95 05/26/20 09:12 05/26/20 09:12 05/26/20 09:12 05/26/20 09:12 Interpretation: Tachycardic Notes: GENERAL: Middle-aged female in moderate distress with tremor, tachycardia, diaphoresis and anxiety. SKIN: Mildly diaphoretic. Good turgor no rashes. HEAD: Normocephalic atraumatic. EYES: PERRLA. EOMI. Mild scleral icterus present. EARS: CANALS AND TMS CLEAR. NOSE: CLEAR. MOUTH: Moist mucosa. Good dentition. No stridor or edema. No drooling. NECK: Supple. No masses or thyromegaly. No adenopathy. Carotids 2+ without bruits. No JVD. BACK: Symmetrical without tenderness. CHEST: Respirations unlabored. Breath sounds clear and symmetrical. HEART: Tachycardic regular rhythm. No murmur gallop or rub. ABDOMEN: Moderately tender epigastrium. Mild tenderness right upper quadrant with hepatomegaly. Soft without masses, or rebound. Bowel sounds normally active. No bruits. GENITALIA: Deferred. EXTREMITIES: No edema. No calf tenderness. Cap refill less than 1.5 seconds. Dorsalis pedis and posterior tibial pulses 3+ and symmetrical. NEUROLOGICAL: Diffuse tremor. GCS 14. Alert and oriented to person and place but not to day. Fluent speech. Cranial nerves II through XII intact. Sensorimotor and cerebellar normal. Normal tone. PSYCHIATRIC: Anxious affect. Course - Re-evaluation Re-evalutation: 05/26/20 12:01 Significant alcohol withdrawal syndrome with CIWA score approximately 20. IV banana bag. Cardiac monitoring. IV Ativan. IV Protonix and Compazine. EKG and chest x-ray requested. Awaiting pending chemistry results and will discuss admission with hospitalist team. 05/26/20 17:37 Withdrawal symptoms significantly improved at the patient got IV banana bag and some IV Ativan. I gave her some Protonix. She is not vomiting anymore but says that she still has epigastric burning and feels nauseated. Her transaminases and bilirubin are elevated as is her serum lipase. Case has been discussed with the admitting hospitalist, Dr. Apodaca who has accepted for admission to the medical floor. - Vital Signs Vital signs: Temp Pulse Resp BP Pulse Ox 97.9 F 114 H 21 H 126/84 H 100 05/26/20 09:12 05/26/20 09:12 05/26/20 16:12 05/26/20 16:12 05/26/20 16:12 - Laboratory Result Diagrams: 05/26/20 09:55 05/26/20 09:55 Laboratory results interpreted by me: 05/26/20 05/26/20 05/26/20 09:55 09:55 09:55 MCV 100 H MCH 35.3 H RDW 14.9 H PT Sodium 135.3 L Potassium 3.1 L Chloride 89 L Glucose 162 H Total Bilirubin 5.4 H Direct Bilirubin 3.7 H AST 1270 H ALT 435 H Alkaline Phosphatase 375 H Lipase 747.4 H Urine Protein Urine Bilirubin Urine Urobilinogen 05/26/20 05/26/20 09:55 11:10 MCV MCH RDW PT 15.6 H Sodium Potassium Chloride Glucose Total Bilirubin Direct Bilirubin AST ALT Alkaline Phosphatase Lipase Urine Protein 100 H Urine Bilirubin SMALL H Urine Urobilinogen 4.0 H - EKG Interpretation by Me Additional EKG results interpreted by me: 05/26/20 12:02 Twelve-lead EKG from 1157 hrs. reviewed contemporaneously by me. Rhythm: Sinus tachycardia with rate 106. Normal intervals. Normal QRS axis +[address]/T wave changes. Indication for current study: Alcohol withdrawal syndrome. Interpretation: Sinus tachycardia. Discharge - Discharge Clinical Impression: Alcoholic hepatitis, Alcoholic gastritis, Alcoholic pancreatitis, Alcohol withdrawal syndrome Condition: Good Disposition: ADMITTED INPATIENT Admitting Provider: Paulie (Hospitalist) Unit Admitted: Medical Floor Referrals: VINNY CHILEL FNP [Primary Care Provider] - Follow up as needed
[2020-05-26 11:40] LABS: ALCOHOL < 10 mg/dL (NONE DETECTED); INTERNATIONAL RATION (INR) 1.22; PARTIAL THROMBOPLASTIN TIME 29.3 SEC (23.5-35.8); PROTHROMBIN TIME 15.6 SEC (11.4-15.4)
[2020-05-26] MEDS ORDERED: LORAZEPAM INJ 2 MG/1 ML VIAL IV ONE (11:46)
[2020-05-26] MEDS ORDERED: PROCHLORPERAZINE EDISYLATE INJ 10 MG/2 ML VIAL IV ONE (11:47)
[2020-05-26] MEDS ORDERED: PANTOPRAZOLE SODIUM 40 MG VIAL IV ONE (11:48)
[2020-05-26 11:50] LABS: APPEARANCE,URINE SLIGHTLY-CLOUDY; BILIRUBIN,URINE SMALL (NEGATIVE); COLOR,URINE DARK YELLOW; GLUCOSE, URINE NEGATIVE (NEGATIVE); KETONES,URINE NEGATIVE (NEGATIVE); LEUKOCYTE ESTERASE,URINE NEGATIVE (NEGATIVE); NITRITE,URINE NEGATIVE (NEGATIVE); PROTEIN,URINE 100 mg/dL (NEGATIVE); URINE SPECIFIC GRAVITY 1.018
[2020-05-26 11:59] LABS: URINE AMPHETAMINES SCREEN NEGATIVE; URINE BARBITURATES SCREEN NEGATIVE; URINE COCAINE SCREEN NEGATIVE; URINE MARIJUANA (THC) SCREEN NEGATIVE; URINE METHADONE SCREEN NEGATIVE; URINE PHENCYCLIDINE SCREEN NEGATIVE
[2020-05-26 12:02] LABS: URINE BENZODIAZEPINES SCREEN UNCONFIRMED POSITIVE
[2020-05-26] MEDS ORDERED: NORMAL SALINE 1000 ML 1,000 ML with POTASSIUM CHLORIDE 20 MEQ, MAGNESIUM SULFATE 8 MEQ,... IV ONE ×5 (13:24)
--- NOTE | 2020-05-26 15:23 | EKG REPORT ---
SEVERITY:- ABNORMAL ECG - SINUS TACHYCARDIA NONSPECIFIC ST-T CHANGES DIFFUSE : Confirmed by: Eugene Ann MD 26-May-2020 15:22:29
[2020-05-26] MEDS ORDERED: NORMAL SALINE 1000 ML 1,000 ML with POTASSIUM CHLORIDE 20 MEQ, MAGNESIUM SULFATE 8 MEQ,... IV SCH ×5 (18:00)
--- NOTE | 2020-05-26 18:19 | RADIOLOGY REPORT (SQ) ---
EXAM DESCRIPTION: CHEST SINGLE VIEW IMAGES COMPLETED DATE/TIME: 05/26/2020 12:09 pm REASON FOR STUDY: Alcohol withdrawal COMPARISON: 03/29/2020. EXAM PARAMETERS: NUMBER OF VIEWS: One view. TECHNIQUE: Single frontal radiographic view of the chest acquired. RADIATION DOSE: NA LIMITATIONS: None. FINDINGS: LUNGS AND PLEURA: No opacities, masses or pneumothorax. No pleural effusion. MEDIASTINUM AND HILAR STRUCTURES: No masses. Contour normal. HEART AND VASCULAR STRUCTURES: Heart normal in size. Normal vasculature. BONES: No acute findings. HARDWARE: None in the chest. OTHER: No other significant finding. IMPRESSION: NO ACUTE RADIOGRAPHIC FINDING IN THE CHEST. TECHNICAL DOCUMENTATION: JOB ID: [id number] 2010 [employer]- All Rights Reserved Reading location - IP/workstation name: [email or web address]
[2020-05-26] MEDS ORDERED: DIAZEPAM INJ 10 MG/2 ML DISP.SYRIN IV ONE (18:31)
[2020-05-26] MEDS ORDERED: MAG HYDROX/AL HYDROX/SIMETH SUSP 30 ML UDCUP PO PRN (19:07)
[2020-05-26] MEDS ORDERED: MAGNESIUM HYDROXIDE SUSP 30 ML UDCUP PO PRN (19:07)
[2020-05-26] MEDS ORDERED: PROMETHAZINE HCL INJ 25 MG/1 ML VIAL IV PRN (19:07)
[2020-05-26] MEDS ORDERED: ACETAMINOPHEN 650 MG SUPP.RECT PR PRN (19:07)
--- NOTE | 2020-05-26 19:30 | PDOC H&P ---
History of Present Illness Admission Date/PCP: 05/26/20 18:42 LIZY ESCOBAR Patient complains of: Abdominal pain nausea and vomiting with tremulousness History of Present Illness: RUDDY PAN is a 54 year old female with a long history of alcoholism who was just admitted to [facility] March 29. She was admitted for alcohol withdrawal as well. Her serum alcohol level was in fact less than 10 today. Her drug screen was positive for benzodiazepines. She states that she did not take her bupropion because it was $300 a month. Her estradiol is the only pill that she takes consistently but she has run out of those. Over the last week or so she has been drinking 1 pint of vodka daily. She began to have abdominal discomfort with nausea and vomiting. She had trouble keeping food down. The pain runs across the upper abdomen and seems to be focused in the left upper quadrant and right upper quadrants. She states it is difficult to stop drinking when her significant other is an alcoholic as well. On exam she has slight tenderness in the subcostal areas bilaterally. Her tongue is slightly dry. Laboratory studies reveal hypokalemia as well as hyperglycemia. Total bilirubin 5.4, direct bilirubin 3.7, AST 1270, ALT 435, alkaline phosphatase 375 and lipase 747.4 urinalysis was not suggestive of infection but there was proteinuria. She will be admitted to the hospital service. She will get IV fluids. She will get benzodiazepine therapy. She will have pain management. And going to find an antidepressant medication that hopefully is generic and will not cost the patient $300 a month. Past Medical History Cardiac Medical History: Denies: Coronary Artery Disease, Myocardial Infarction, Hypertension Pulmonary Medical History: Reports: Bronchitis - Asthmatic Broncitis occasionally, Chronic Obstructive Pulmonary Disease (COPD), Pneumonia Denies: Asthma Neurological Medical History: Reports: Migraine Denies: Seizures Endocrine Medical History: Denies: Diabetes Mellitus Type 2 GI Medical History: Reports: Hepatitis - Alcohol related Musculoskeltal Medical History: Denies: Arthritis Skin Medical History: Denies: Eczema, Psoriasis Psychiatric Medical History: Reports: Depression Hematology: Denies: Anemia Infectious Medical History: Denies: HIV Past Surgical History Past Surgical History: Reports: Hysterectomy, Orthopedic Surgery - Ankle, Other - Possible left parotid gland removal Denies: Pacemaker Social History Information Source: Patient, [facility] Records Lives with: Spouse/Significant other - Who is also an alcoholic Smoking Status: Never Smoker Electronic Cigarette use?: No Frequency of Alcohol Use: Heavy - 1 pint of vodka daily per the patient Hx Recreational Drug Use: No - 2011 unconfirmed positive opiates Drugs: None Hx Prescription Drug Abuse: No - Advance Directive Resuscitation Status: Full Code Surrogate healthcare decision maker:: The patient states that her father would be the dedicated decision maker. Family History Family History: Arthritis, COPD, Other - Patient also reports family history of bladder "problems " Parental Family History Reviewed: Yes Children Family History Reviewed: NA Sibling(s) Family History Reviewed.: Yes Medication/Allergy Home Medications: Estradiol 1 mg PO DAILY 09/24/19 Zolpidem Tartrate [Ambien Cr] 12.5 mg PO HSP PRN 09/24/19 Bupropion HCl [Bupropion Xl] 300 mg PO DAILY 03/29/20 Trazodone HCl [Desyrel 50 mg Tablet] 50 mg PO HSP PRN 03/29/20 Famotidine [Pepcid 20 mg Tablet] 20 mg PO Q12 #60 tablet 04/01/20 Multivitamin [Tab-A-Nilsa (Multiple Vitamin) Tablet] 1 tab PO DAILY tablet 08/11 Potassium Chloride 40 meq PO DAILY 10 Days tablet.er 04/01/20 Thiamine HCl [Thiamine 100 mg Tablet] 100 mg PO DAILY #14 tablet 04/01/20 Allergies/Adverse Reactions: iodine [Iodine] Allergy (Severe, Verified 08/22/13 17:08) Sulfa (Sulfonamide Antibiotics) Allergy (Severe, Verified 08/22/13 17:08) Review of Systems All systems: reviewed and no additional remarkable complaints except as stated Constitutional: PRESENT: fatigue, weakness Gastrointestinal: PRESENT: abdominal pain, nausea, vomiting Neurological: PRESENT: abnormal speech - The patient tends to mumble and slurred her words Psychiatric: PRESENT: depression Physical Exam Vital Signs: Temp Pulse Resp BP Pulse Ox 97.9 F 114 H 21 H 144/91 H 95 05/26/20 09:12 05/26/20 09:12 05/26/20 18:49 05/26/20 18:49 05/26/20 18:49 Intake & Output 05/25/20 05/26/20 05/27/20 06:59 06:59 06:59 Intake Total 1010 Balance 1010 Weight 113.398 kg General appearance: PRESENT: cooperative, disheveled, mild distress, morbidly obese, well-developed Head exam: PRESENT: atraumatic, normocephalic Eye exam: PRESENT: conjunctiva pink, scleral icterus Ear exam: PRESENT: normal external ear exam. ABSENT: bleeding, drainage Mouth exam: PRESENT: dry mucosa, tongue midline Teeth exam: PRESENT: poor dentation Neck exam: ABSENT: carotid bruit, JVD, lymphadenopathy, tenderness, thyromegaly Respiratory exam: PRESENT: clear to auscultation [place], symmetrical, unlabored. ABSENT: rales, rhonchi, tachypnea, wheezes Cardiovascular exam: PRESENT: +S1, +S2, tachycardia. ABSENT: bradycardia, diastolic murmur, irregular rhythm, systolic murmur GI/Abdominal exam: PRESENT: normal bowel sounds, soft, tenderness - Slightly tender left upper quadrant and right upper quadrant. No tenderness across the lower abdomen.. ABSENT: distended Rectal exam: PRESENT: deferred Gentrourinary exam: ABSENT: indwelling catheter Extremities exam: ABSENT: joint swelling, pedal edema Musculoskeletal exam: PRESENT: ambulatory, normal inspection. ABSENT: deformity, dislocation Neurological exam: PRESENT: alert, awake, oriented to person, oriented to place, oriented to time, oriented to situation, CN II-XII grossly intact. ABSENT: altered Psychiatric exam: PRESENT: flat affect. ABSENT: agitated, anxious Focused psych exam: ABSENT: delusional, paranoid, restlessness Skin exam: PRESENT: dry, jaundice, warm Results Laboratory Results: 05/26/20 09:55 05/26/20 09:55 05/26/20 05/26/20 05/26/20 09:55 09:55 09:55 WBC 6.0 RBC 4.15 Hgb 14.6 Hct 41.6 MCV 100 H MCH 35.3 H MCHC 35.2 RDW 14.9 H Plt Count 211 Seg Neutrophils % 75.7 Sodium 135.3 L Potassium 3.1 L Chloride 89 L Carbon Dioxide 30 Anion Gap 16 BUN 9 Creatinine 0.68 Est GFR ( Amer) > 60 Glucose 162 H Calcium 9.7 Total Bilirubin 5.4 H AST 1270 H Alkaline Phosphatase 375 H Total Protein 7.9 Albumin 4.7 Lipase 747.4 H Urine Color Urine Appearance Urine pH Ur Specific [place] Urine Protein Urine Glucose (UA) Urine Ketones Urine Blood Urine Nitrite Ur Leukocyte Esterase Urine RBC (Auto) 05/26/20 11:10 WBC RBC Hgb Hct MCV MCH MCHC RDW Plt Count Seg Neutrophils % Sodium Potassium Chloride Carbon Dioxide Anion Gap BUN Creatinine Est GFR ( Amer) Glucose Calcium Total Bilirubin AST Alkaline Phosphatase Total Protein Albumin Lipase Urine Color DARK YELLOW Urine Appearance SLIGHTLY-CLOUDY Urine pH 6.0 Ur Specific [place] 1.018 Urine Protein 100 H Urine Glucose (UA) NEGATIVE Urine Ketones NEGATIVE Urine Blood NEGATIVE Urine Nitrite NEGATIVE Ur Leukocyte Esterase NEGATIVE Urine RBC (Auto) 28 Impressions: Chest X-Ray 05/26/20 11:48 IMPRESSION: NO ACUTE RADIOGRAPHIC FINDING IN THE CHEST. Assessment and Plan - Diagnosis (1) Alcohol withdrawal syndrome Qualifiers: Complication of substance-induced condition: uncomplicated Qualified Code(s): F10.230 - Alcohol dependence with withdrawal, uncomplicated Is this a current diagnosis for this admission?: Yes Plan: Already tremulous. Serum alcohol is less than 10. Scheduled and as needed benzodiazepines with analgesia available. (2) Hepatitis, alcoholic Qualifiers: Ascites presence: without ascites Qualified Code(s): K70.10 - Alcoholic hepatitis without ascites Is this a current diagnosis for this admission?: Yes Plan: IV fluids and monitor liver profile (3) Acute pancreatitis Qualifiers: Pancreatitis type: alcohol induced Is this a current diagnosis for this admission?: Yes Plan: Pancreatitis is mild. IV fluids. Analgesia. (5) Depression Qualifiers: Depression Type: major depressive disorder Major depression recurrence: recurrent Active/Remission status: currently active Major depression episode severity: moderate Qualified Code(s): F33.1 - Major depressive disorder, recurrent, moderate Is this a current diagnosis for this admission?: Yes Plan: Bupropion was $300. The patient could not afford it. I will institute a trial of Lexapro. (6) Hyperglycemia Is this a current diagnosis for this admission?: Yes Plan: Accu-Cheks twice daily. (7) Morbid obesity with BMI of 40.0-44.9, adult Is this a current diagnosis for this admission?: Yes Plan: Monitor closely for ascites. Encourage abstinence from alcohol, better diet and exercise. - Time Time Spent with patient: 35 or more minutes Medications reviewed and adjusted accordingly: Yes Anticipated Discharge Disposition: Home, Self Care Anticipated Discharge Timeframe: within 72 hours - Inpatient Certification Based on my medical assessment, after consideration of the patient's comorbidities, presenting symptoms, or acuity I expect that the services needed warrant INPATIENT care.: Yes I certify that my determination is in accordance with my understanding of Medicare's requirements for reasonable and necessary INPATIENT services [42 CFR 412.3e].: Yes Medical Necessity: Need Close Monitoring Due to Risk of Patient Decompensation, Need For IV Fluids, Need for Pain Control, Risk of Complication if Not Cared For in Hospital Post Hospital Care: D/C or Transfer Summary
[2020-05-26] MEDS: HEPARIN SOD (PORCINE) 5,000 UNIT/ML 1 ML VIAL SUBCUT SCH (22:00)
[2020-05-26] MEDS: PANTOPRAZOLE SODIUM 40 MG VIAL IV SCH (22:01)
[2020-05-26] MEDS: POTASSIUM CHLORIDE 10 MEQ TABLET.ER PO SCH (22:02)
[2020-05-26] MEDS: FAMOTIDINE 20 MG TABLET PO SCH (22:02)
[2020-05-26] MEDS: DIAZEPAM 5 MG TABLET PO PRN (22:02)
[2020-05-26] MEDS: TRAZODONE HCL 50 MG TABLET PO SCH (22:03)
[2020-05-26] MEDS: RINGERS SOLUTION,LACTATED 1,000 ML IV PRN (22:14)
[2020-05-26 23:56] LABS: AMORPHOUS SEDIMENT,URINE TRACE /HPF; APPEARANCE,URINE TURBID; BILIRUBIN,URINE SMALL (NEGATIVE); COLOR,URINE RED; GLUCOSE, URINE NEGATIVE (NEGATIVE); KETONES,URINE NEGATIVE (NEGATIVE); LEUKOCYTE ESTERASE,URINE NEGATIVE (NEGATIVE); NITRITE,URINE NEGATIVE (NEGATIVE); PROTEIN,URINE 100 mg/dL (NEGATIVE); URINE SPECIFIC GRAVITY 1.027
[2020-05-27] MEDS: HEPARIN SOD (PORCINE) 5,000 UNIT/ML 1 ML VIAL SUBCUT SCH ×3 (06:04→21:20)
[2020-05-27] MEDS: DIAZEPAM INJ 10 MG/2 ML DISP.SYRIN IV PRN (06:04)
[2020-05-27 06:36] LABS: ALBUMIN 3.4 g/dL (3.5-5.0); ALKALINE PHOSPHATASE 251 U/L (38-126); ANION GAP 10 (5-19); BILIRUBIN,DIRECT 4.6 mg/dL (0.0-0.4); BILIRUBIN,TOTAL 7.1 mg/dL (0.2-1.3); BLOOD UREA NITROGEN 11 mg/dL (7-20); CARBON DIOXIDE 27 mmol/L (22-30); CHLORIDE 99 mmol/L (98-107); GLUCOSE 93 mg/dL (75-110); POTASSIUM 3.1 mmol/L (3.6-5.0); TOTAL PROTEIN 5.9 g/dL (6.3-8.2)
[2020-05-27 06:43] LABS: ASPARTATE AMINO TRANSFERASE 899 U/L (14-36)
[2020-05-27] MEDS: RINGERS SOLUTION,LACTATED 1,000 ML IV PRN (08:01)
[2020-05-27] MEDS: DIAZEPAM 5 MG TABLET PO PRN ×2 (08:04→18:59)
[2020-05-27] MEDS ORDERED: POTASSI CL 20 MEQ/50 ML RIDER 20 MEQ/50 ML RTUPB IV ONE (09:00)
[2020-05-27] MEDS ORDERED: FOLIC ACID 1 MG TABLET PO SCH (10:00)
[2020-05-27] MEDS ORDERED: MULTIVITAMIN TABLET PO SCH (10:00)
[2020-05-27] MEDS: POTASSIUM CHLORIDE 10 MEQ TABLET.ER PO SCH ×2 (10:04→21:19)
[2020-05-27] MEDS: ESCITALOPRAM OXALATE 10 MG TABLET PO SCH (10:05)
[2020-05-27] MEDS: PANTOPRAZOLE SODIUM 40 MG VIAL IV SCH ×2 (10:05→21:18)
[2020-05-27] MEDS: FAMOTIDINE 20 MG TABLET PO SCH ×2 (10:05→21:19)
--- NOTE | 2020-05-27 12:22 | PDOC PROGRESS REPORT ---
Subjective Progress Note for:: 05/27/20 Subjective:: Patient actually is feeling better. She still feels lightheaded on occasion. Her urine culture in fact turn positive today for gram-negative bacilli. She still feels slightly queasy when eating. Reason For Visit: ACUTE ON CHRONIC ALCOHOLIC HEPITITIS, ALCOHOL Physical Exam Vital Signs: Temp Pulse Resp BP Pulse Ox 97.5 F 80 23 H 132/78 H 97 05/27/20 07:51 05/27/20 07:51 05/27/20 07:51 05/27/20 07:51 05/27/20 07:51 Intake & Output 05/26/20 05/27/20 05/28/20 06:59 06:59 06:59 Intake Total 2963 40 Output Total 500 Balance 2463 40 Weight 113 kg General appearance: PRESENT: cooperative, mild distress, well-developed Head exam: PRESENT: atraumatic, normocephalic Mouth exam: PRESENT: moist, tongue midline Respiratory exam: PRESENT: clear to auscultation [place], symmetrical, unlabored. ABSENT: accessory muscle use, rales, rhonchi, tachypnea, wheezes Cardiovascular exam: PRESENT: RRR, +S1, +S2. ABSENT: bradycardia, diastolic murmur, irregular rhythm, systolic murmur, tachycardia GI/Abdominal exam: PRESENT: normal bowel sounds, soft. ABSENT: tenderness Rectal exam: PRESENT: deferred Gentrourinary exam: ABSENT: indwelling catheter Extremities exam: ABSENT: pedal edema Musculoskeletal exam: PRESENT: ambulatory, normal inspection. ABSENT: deformity, dislocation Neurological exam: PRESENT: alert, awake, oriented to person, oriented to place, oriented to time, oriented to situation, CN II-XII grossly intact. ABSENT: altered Psychiatric exam: PRESENT: depressed, flat affect. ABSENT: agitated, anxious Focused psych exam: ABSENT: delusional, paranoid, restlessness Results Laboratory Results: 05/26/20 09:55 05/27/20 05:25 05/26/20 05/27/20 22:25 05:25 Sodium 136.3 L Potassium 3.1 L Chloride 99 Carbon Dioxide 27 Anion Gap 10 BUN 11 Creatinine 0.56 Est GFR ( Amer) > 60 Glucose 93 Calcium 9.0 Magnesium 2.1 Total Bilirubin 7.1 H AST 899 H Alkaline Phosphatase 251 H Total Protein 5.9 L Albumin 3.4 L Lipase 424.2 H Urine Color RED Urine Appearance TURBID Urine pH 5.0 Ur Specific [place] 1.027 Urine Protein 100 H Urine Glucose (UA) NEGATIVE Urine Ketones NEGATIVE Urine Blood NEGATIVE Urine Nitrite NEGATIVE Ur Leukocyte Esterase NEGATIVE Urine WBC (Auto) 8 Impressions: Chest X-Ray 05/26/20 11:48 IMPRESSION: NO ACUTE RADIOGRAPHIC FINDING IN THE CHEST. Assessment and Plan - Diagnosis (1) Alcohol withdrawal syndrome Qualifiers: Complication of substance-induced condition: uncomplicated Qualified Code(s): F10.230 - Alcohol dependence with withdrawal, uncomplicated Is this a current diagnosis for this admission?: Yes Plan: Feeling slightly better with hydration and benzodiazepine therapy. Continue same. (2) Hepatitis, alcoholic Qualifiers: Ascites presence: without ascites Qualified Code(s): K70.10 - Alcoholic hepatitis without ascites Is this a current diagnosis for this admission?: Yes Plan: Transaminases and alkaline phosphatase starting to come down. Total bilirubin is going up slightly but this is not uncommon. We will recheck labs tomorrow with ongoing IV fluids. (3) Acute pancreatitis Qualifiers: Pancreatitis type: alcohol induced Is this a current diagnosis for this admission?: Yes Plan: Lipase is trending down but still elevated. Recheck tomorrow. Continue current plan. (4) Hypokalemia Is this a current diagnosis for this admission?: Yes Plan: Potassium still only 3.1 despite supplement. We will give IV potassium and increase the oral dose. (5) Depression Qualifiers: Depression Type: major depressive disorder Major depression recurrence: recurrent Active/Remission status: currently active Major depression episode severity: moderate Qualified Code(s): F33.1 - Major depressive disorder, recurrent, moderate Is this a current diagnosis for this admission?: Yes Plan: Antidepressant prescribed at discharge last time was $300. Patient states she cannot afford it. We will try Lexapro as I believe the co-pay is much less. (6) Hyperglycemia Is this a current diagnosis for this admission?: Yes Plan: Possibly related to the pancreatitis or the physiologic stress of the illness. Will monitor glucose and treat if it continues to be elevated. (7) Morbid obesity with BMI of 40.0-44.9, adult Is this a current diagnosis for this admission?: Yes Plan: Encourage alcohol cessation which will be very helpful in adopting healthy lifestyle habits including exercise. (8) Urinary tract infection Qualifiers: Urinary tract infection type: acute cystitis Hematuria presence: without hematuria Qualified Code(s): N30.00 - Acute cystitis without hematuria Is this a current diagnosis for this admission?: Yes Plan: Urine cultures growing gram-negative bacilli. Will start ceftriaxone. Await final identification and sensitivities to plan outpatient therapy. - Time Time Spent with patient: 15-24 minutes Medications reviewed and adjusted accordingly: Yes Anticipated Discharge Disposition: Home, Self Care Anticipated Discharge Timeframe: within 48 hours
[2020-05-27] MEDS: CEFTRIAXONE 1 GM/D5W RTU 1 GM/50 ML RTUPB IV SCH (14:51)
[2020-05-27] MEDS: KETOROLAC TROMETHAMINE INJ/PF 30 MG/1 ML SDV IV PRN ×2 (14:54→21:18)
[2020-05-27] MEDS: NORMAL SALINE 1000 ML 1,000 ML with POTASSIUM CHLORIDE 20 MEQ, MAGNESIUM SULFATE 8 MEQ,... IV SCH ×5 (18:03)
[2020-05-27] MEDS: TRAZODONE HCL 50 MG TABLET PO SCH (21:20)
[2020-05-28] MEDS: DIAZEPAM INJ 10 MG/2 ML DISP.SYRIN IV PRN ×2 (02:21→15:15)
[2020-05-28 05:40] LABS: ABSOLUTE EOSINOPHILS # (AUTO) 0.2 10^3/uL (0.0-0.6); ABSOLUTE LYMPHOCYTES (AUTO) 0.8 10^3/uL (0.5-4.7); ABSOLUTE MONOCYTES (AUTO) 0.5 10^3/uL (0.1-1.4); ABSOLUTE NEUT (AUTO) 2.1 10^3/uL (1.7-8.2); BASOPHILS % (AUTO) 0.5 % (0-2); EOSINOPHILS % (AUTO) 4.9 % (0-6); HEMATOCRIT 29.7 % (36.0-47.0); LYMPHOCYTES % (AUTO) 21.3 % (13-45); MEAN CORPUSCULAR HEMOGLOBIN 35.8 pg (27.0-33.4); MEAN CORPUSCULAR HGB CONC 35.2 g/dL (32.0-36.0); MEAN CORPUSCULAR VOLUME 102 fl (80-97); MONOCYTES % (AUTO) 13.2 % (3-13); PLATELET COUNT 107 10^3/uL (150-450); RED BLOOD COUNT 2.92 10^6/uL (3.72-5.28); RED CELL DISTRIBUTION WIDTH 15.1 % (11.5-14.0); SEGMENTED NEUTROPHILS % (AUTO) 60.1 % (42-78); TOTAL CELLS COUNTED % (AUTO) 100 %; WHITE BLOOD COUNT 3.5 10^3/uL (4.0-10.5)
[2020-05-28 05:59] LABS: ALBUMIN 2.8 g/dL (3.5-5.0); ALKALINE PHOSPHATASE 200 U/L (38-126); ANION GAP 7 (5-19); ASPARTATE AMINO TRANSFERASE 641 U/L (14-36); BILIRUBIN,DIRECT 4.5 mg/dL (0.0-0.4); BILIRUBIN,TOTAL 5.2 mg/dL (0.2-1.3); BLOOD UREA NITROGEN 11 mg/dL (7-20); CALCIUM 8.5 mg/dL (8.4-10.2); CARBON DIOXIDE 24 mmol/L (22-30); CHLORIDE 104 mmol/L (98-107); GLUCOSE 111 mg/dL (75-110); POTASSIUM 3.6 mmol/L (3.6-5.0); TOTAL PROTEIN 5.2 g/dL (6.3-8.2)
[2020-05-28] MEDS: HEPARIN SOD (PORCINE) 5,000 UNIT/ML 1 ML VIAL SUBCUT SCH (06:15)
[2020-05-28 06:25] LABS: HEMOGLOBIN 10.5 g/dL (12.0-15.5)
[2020-05-28] MEDS: DIAZEPAM 5 MG TABLET PO PRN (08:04)
[2020-05-28] MEDS: RINGERS SOLUTION,LACTATED 1,000 ML IV PRN (08:05)
[2020-05-28] MEDS: CEFTRIAXONE 1 GM/D5W RTU 1 GM/50 ML RTUPB IV SCH (09:19)
[2020-05-28] MEDS: KETOROLAC TROMETHAMINE INJ/PF 30 MG/1 ML SDV IV PRN ×2 (09:20→15:16)
[2020-05-28] MEDS: PANTOPRAZOLE SODIUM 40 MG VIAL IV SCH ×2 (09:20→21:34)
[2020-05-28] MEDS: FAMOTIDINE 20 MG TABLET PO SCH ×2 (09:21→21:34)
[2020-05-28] MEDS: ESCITALOPRAM OXALATE 10 MG TABLET PO SCH (09:21)
[2020-05-28] MEDS: POTASSIUM CHLORIDE 10 MEQ TABLET.ER PO SCH ×2 (09:22→21:34)
--- NOTE | 2020-05-28 11:44 | PDOC PROGRESS REPORT ---
Subjective Progress Note for:: 05/28/20 Subjective:: Patient reports some bruising on her abdomen. She has not been getting continuous subcutaneous injections. She still reports hematuria. Reason For Visit: ACUTE ON CHRONIC ALCOHOLIC HEPITITIS, ALCOHOL Physical Exam Vital Signs: Temp Pulse Resp BP Pulse Ox 97.5 F 85 17 150/79 H 100 05/28/20 10:00 05/28/20 07:38 05/28/20 07:38 05/28/20 07:38 05/28/20 07:38 Intake & Output 05/27/20 05/28/20 05/29/20 06:59 06:59 06:59 Intake Total 2963 4270 1083 Output Total 500 2100 Balance 2463 2170 1083 Weight 113 kg 81.4 kg General appearance: PRESENT: cooperative, disheveled, mild distress, well- developed Head exam: PRESENT: atraumatic, normocephalic Ear exam: PRESENT: normal external ear exam. ABSENT: bleeding, drainage Mouth exam: PRESENT: moist, tongue midline Respiratory exam: PRESENT: clear to auscultation [place], symmetrical, unlabored. ABSENT: rales, rhonchi, tachypnea, wheezes Cardiovascular exam: PRESENT: RRR, +S1, +S2, systolic murmur. ABSENT: bradycardia, diastolic murmur, tachycardia GI/Abdominal exam: PRESENT: normal bowel sounds, soft - 2 of 6. ABSENT: distended, guarding, tenderness Rectal exam: PRESENT: deferred Gentrourinary exam: ABSENT: indwelling catheter Extremities exam: ABSENT: pedal edema Musculoskeletal exam: PRESENT: ambulatory, full ROM, normal inspection. ABSENT: deformity, dislocation Neurological exam: PRESENT: alert, awake, oriented to person, oriented to place, oriented to time, oriented to situation, CN II-XII grossly intact. ABSENT: altered Psychiatric exam: PRESENT: flat affect. ABSENT: agitated, anxious Focused psych exam: ABSENT: delusional, paranoid, restlessness Results Laboratory Results: 05/28/20 04:40 05/28/20 04:40 05/28/20 05/28/20 04:40 04:40 WBC 3.5 L RBC 2.92 L Hgb 10.5 L D Hct 29.7 L MCV 102 H MCH 35.8 H MCHC 35.2 RDW 15.1 H Plt Count 107 L Seg Neutrophils % 60.1 Sodium 135.1 L Potassium 3.6 Chloride 104 Carbon Dioxide 24 Anion Gap 7 BUN 11 Creatinine 0.53 Est GFR ( Amer) > 60 Glucose 111 H Calcium 8.5 Magnesium 2.0 Total Bilirubin 5.2 H AST 641 H Alkaline Phosphatase 200 H Total Protein 5.2 L Albumin 2.8 L Lipase 492.2 H Impressions: Chest X-Ray 05/26/20 11:48 IMPRESSION: NO ACUTE RADIOGRAPHIC FINDING IN THE CHEST. Assessment and Plan - Diagnosis (1) Alcohol withdrawal syndrome Qualifiers: Complication of substance-induced condition: uncomplicated Qualified Code(s): F10.230 - Alcohol dependence with withdrawal, uncomplicated Is this a current diagnosis for this admission?: Yes Plan: Continue fluids. Will change Valium to 5 mg every 8 hours scheduled and still have as needed Valium available. (2) Hepatitis, alcoholic Qualifiers: Ascites presence: without ascites Qualified Code(s): K70.10 - Alcoholic hepatitis without ascites Is this a current diagnosis for this admission?: Yes Plan: Transaminases are slowly improving. Bilirubin initially continue to increase but now is trending down as well. Continue to monitor. (3) Acute pancreatitis Qualifiers: Pancreatitis type: alcohol induced Is this a current diagnosis for this admission?: Yes Plan: Lipase slightly higher today than yesterday. Other liver enzymes are decreasing with the exception of bilirubin. Continue current management. (4) Hypokalemia Is this a current diagnosis for this admission?: Yes Plan: Potassium is normal today. Continue to monitor. Supplement if less than 3.5. (5) Depression Qualifiers: Depression Type: major depressive disorder Major depression recurrence: recurrent Active/Remission status: currently active Major depression episode severity: moderate Qualified Code(s): F33.1 - Major depressive disorder, recurrent, moderate Is this a current diagnosis for this admission?: Yes Plan: Antidepressant prescribed at discharge last time was $300. Patient states she cannot afford it. We will try Lexapro as I believe the co-pay is much less. (6) Hyperglycemia Is this a current diagnosis for this admission?: Yes Plan: Possibly related to the pancreatitis or the physiologic stress of the illness. Will monitor glucose and treat if it continues to be elevated. (7) Morbid obesity with BMI of 40.0-44.9, adult Is this a current diagnosis for this admission?: Yes Plan: Encourage alcohol cessation which will be very helpful in adopting healthy lifestyle habits including exercise. (8) Urinary tract infection Qualifiers: Urinary tract infection type: acute cystitis Hematuria presence: without hematuria Qualified Code(s): N30.00 - Acute cystitis without hematuria Is this a current diagnosis for this admission?: Yes Plan: Continue Rocephin. Final identification and sensitivity of the gram-negative bacilli not available yet. (9) Thrombocytopenia Is this a current diagnosis for this admission?: Yes Plan: Platelet counts dropped from 211-107. This might account for the bruising. I will stop the subcutaneous heparin. PT/INR was not markedly elevated which could occur with her liver disease. We will continue to monitor. (10) Anemia Qualifiers: Anemia type: iron deficiency Iron deficiency anemia type: unspecified iron deficiency Qualified Code(s): D50.9 - Iron deficiency anemia, unspecified Is this a current diagnosis for this admission?: Yes Plan: Patient still having hematuria. Hemoglobin significantly dropped. It is only 10.5 this morning and it was 14.5 yesterday. This is likely from the hematuria. She is showing some bruising and this could be because of the new thromboc ytopenia. Recheck hemoglobin tomorrow. - Time Time Spent with patient: 15-24 minutes Medications reviewed and adjusted accordingly: Yes Anticipated Discharge Disposition: Home, Self Care Anticipated Discharge Timeframe: within 48 hours
[2020-05-28] MEDS: DIAZEPAM 5 MG TABLET PO SCH ×2 (12:01→19:24)
[2020-05-28] MEDS: NORMAL SALINE 1000 ML 1,000 ML with POTASSIUM CHLORIDE 20 MEQ, MAGNESIUM SULFATE 8 MEQ,... IV SCH ×5 (17:26)
[2020-05-28] MEDS: ACETAMINOPHEN 325 MG TABLET PO PRN (17:39)
[2020-05-28] MEDS: TRAZODONE HCL 50 MG TABLET PO SCH (21:34)
[2020-05-29] MEDS: DIAZEPAM 5 MG TABLET PO SCH ×3 (03:37→19:26)
[2020-05-29] MEDS: RINGERS SOLUTION,LACTATED 1,000 ML IV PRN ×3 (03:38→14:55)
[2020-05-29 06:12] LABS: HEMATOCRIT 31.9 % (36.0-47.0); HEMOGLOBIN 11.3 g/dL (12.0-15.5); MEAN CORPUSCULAR HEMOGLOBIN 36.2 pg (27.0-33.4); MEAN CORPUSCULAR HGB CONC 35.3 g/dL (32.0-36.0); MEAN CORPUSCULAR VOLUME 102 fl (80-97); PLATELET COUNT 119 10^3/uL (150-450); RED BLOOD COUNT 3.12 10^6/uL (3.72-5.28); RED CELL DISTRIBUTION WIDTH 14.8 % (11.5-14.0); WHITE BLOOD COUNT 3.4 10^3/uL (4.0-10.5)
[2020-05-29 06:36] LABS: ALBUMIN 3.1 g/dL (3.5-5.0); ALKALINE PHOSPHATASE 228 U/L (38-126); ASPARTATE AMINO TRANSFERASE 505 U/L (14-36); BILIRUBIN,DIRECT 4.5 mg/dL (0.0-0.4); BILIRUBIN,TOTAL 5.4 mg/dL (0.2-1.3); BLOOD UREA NITROGEN 9 mg/dL (7-20); CALCIUM 8.6 mg/dL (8.4-10.2); CARBON DIOXIDE 24 mmol/L (22-30); CHLORIDE 106 mmol/L (98-107); GLUCOSE 104 mg/dL (75-110); POTASSIUM 3.7 mmol/L (3.6-5.0); TOTAL PROTEIN 5.8 g/dL (6.3-8.2)
[2020-05-29 06:38] LABS: ANION GAP 6 (5-19)
[2020-05-29] MEDS: KETOROLAC TROMETHAMINE INJ/PF 30 MG/1 ML SDV IV PRN ×2 (08:40→14:54)
[2020-05-29] MEDS ORDERED: DEXTROSE 40% GEL 15 GM TUBE PO PRN ×2 (09:51)
[2020-05-29] MEDS ORDERED: DEXTROSE 50%-WATER 25 GM/50 ML DISP.SYRIN IV PRN ×2 (09:51)
[2020-05-29] MEDS ORDERED: GLUCAGON,HUMAN RECOMB 1 MG INJ SUBCUT PRN (09:51)
--- NOTE | 2020-05-29 09:54 | PDOC PROGRESS REPORT ---
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 ABSENT: bleeding, drainage Mouth exam: PRESENT: moist, tongue midline Respiratory exam: PRESENT: clear to auscultation [place], symmetrical, unlabored. ABSENT: rales, rhonchi, tachypnea, wheezes Cardiovascular exam: PRESENT: RRR, +S1, +S2, systolic murmur. ABSENT: bradycardia, diastolic murmur, irregular rhythm, tachycardia GI/Abdominal exam: PRESENT: normal bowel sounds, soft, tenderness. ABSENT: dist ended, guarding Rectal exam: PRESENT: deferred Extremities exam: ABSENT: pedal edema Neurological exam: PRESENT: alert, awake, oriented to person, oriented to place, oriented to time, oriented to situation, CN II-XII grossly intact. ABSENT: altered Psychiatric exam: ABSENT: agitated, anxious Focused psych exam: ABSENT: delusional, paranoid, restlessness Results Laboratory Results: 05/29/20 05:12 05/29/20 05:12 05/29/20 05/29/20 05:12 05:12 WBC 3.4 L RBC 3.12 L Hgb 11.3 L Hct 31.9 L MCV 102 H MCH 36.2 H MCHC 35.3 RDW 14.8 H Plt Count 119 L Sodium 136.3 L Potassium 3.7 Chloride 106 Carbon Dioxide 24 Anion Gap 6 BUN 9 Creatinine 0.55 Est GFR ( Amer) > 60 Glucose 104 Calcium 8.6 Magnesium 2.0 Total Bilirubin 5.4 H AST 505 H Alkaline Phosphatase 228 H Total Protein 5.8 L Albumin 3.1 L Lipase 506.1 H Impressions: Chest X-Ray 05/26/20 11:48 IMPRESSION: NO ACUTE RADIOGRAPHIC FINDING IN THE CHEST. Assessment and Plan - Diagnosis (1) Alcohol withdrawal syndrome Qualifiers: Complication of substance-induced condition: uncomplicated Qualified Code(s): F10.230 - Alcohol dependence with withdrawal, uncomplicated Is this a current diagnosis for this admission?: Yes Plan: minimal symptoms. taper benzo's. continue banana bag (2) Hepatitis, alcoholic Qualifiers: Ascites presence: without ascites Qualified Code(s): K70.10 - Alcoholic hepatitis without ascites Is this a current diagnosis for this admission?: Yes Plan: transaminases improving. Bili stable (3) Acute pancreatitis Qualifiers: Pancreatitis type: alcohol induced Is this a current diagnosis for this admission?: Yes Plan: lipase bumped so will revert to NPO status (4) Hypokalemia Is this a current diagnosis for this admission?: Yes Plan: resolved (5) Depression Qualifiers: Depression Type: major depressive disorder Major depression recurrence: recurrent Active/Remission status: currently active Major depression episode severity: moderate Qualified Code(s): F33.1 - Major depressive disorder, recurrent, moderate Is this a current diagnosis for this admission?: Yes Plan: stable. Continue new antidepressant (6) Hyperglycemia Is this a current diagnosis for this admission?: Yes Plan: resolved (7) Morbid obesity with BMI of 40.0-44.9, adult Is this a current diagnosis for this admission?: Yes Plan: Encourage alcohol cessation which will be very helpful in adopting healthy l ifestyle habits including exercise. (8) Urinary tract infection Qualifiers: Urinary tract infection type: acute cystitis Hematuria presence: without hematuria Qualified Code(s): N30.00 - Acute cystitis without hematuria Is this a current diagnosis for this admission?: Yes Plan: change to meropenem (9) Thrombocytopenia Is this a current diagnosis for this admission?: Yes Plan: improved from yesterday (10) Anemia Qualifiers: Anemia type: iron deficiency Iron deficiency anemia type: unspecified iron deficiency Qualified Code(s): D50.9 - Iron deficiency anemia, unspecified Is this a current diagnosis for this admission?: Yes Plan: better than yesterday. comtinue to monitor (11) Infection due to ESBL-producing Escherichia coli Is this a current diagnosis for this admission?: Yes Plan: d/c rocephin and start meropenem - Time Time Spent with patient: 15-24 minutes Medications reviewed and adjusted accordingly: Yes Anticipated Discharge Disposition: Home, Self Care Anticipated Discharge Timeframe: within 72 hours
[2020-05-29] MEDS: ESCITALOPRAM OXALATE 10 MG TABLET PO SCH (10:03)
[2020-05-29] MEDS: FAMOTIDINE 20 MG TABLET PO SCH ×2 (10:04→21:52)
[2020-05-29] MEDS: POTASSIUM CHLORIDE 10 MEQ TABLET.ER PO SCH ×2 (10:04→21:52)
[2020-05-29] MEDS: CEFTRIAXONE 1 GM/D5W RTU 1 GM/50 ML RTUPB IV SCH (10:06)
[2020-05-29] MEDS: PANTOPRAZOLE SODIUM 40 MG VIAL IV SCH ×2 (10:08→21:53)
[2020-05-29] MEDS: LOPERAMIDE HCL 2 MG CAPSULE PO PRN ×2 (11:05→19:30)
[2020-05-29] MEDS: MEROPENEM 1 GM in NORMAL SALINE 50 ML IV SCH (16:56)
[2020-05-29] MEDS: LACTOBACILLUS ACIDOPHILUS 250 MG TAB PO SCH (17:53)
[2020-05-29] MEDS: NORMAL SALINE 1000 ML 1,000 ML with POTASSIUM CHLORIDE 20 MEQ, MAGNESIUM SULFATE 8 MEQ,... IV SCH ×5 (17:54)
[2020-05-29] MEDS: TRAZODONE HCL 50 MG TABLET PO SCH (21:52)
[2020-05-30] MEDS: LOPERAMIDE HCL 2 MG CAPSULE PO PRN ×2 (01:07→09:34)
[2020-05-30] MEDS: MEROPENEM 1 GM in NORMAL SALINE 50 ML IV SCH ×3 (01:07→17:22)
[2020-05-30] MEDS: DIAZEPAM 5 MG TABLET PO SCH ×3 (02:47→19:23)
[2020-05-30 05:53] LABS: ALBUMIN 2.7 g/dL (3.5-5.0); ALKALINE PHOSPHATASE 197 U/L (38-126); ANION GAP 6 (5-19); ASPARTATE AMINO TRANSFERASE 403 U/L (14-36); BLOOD UREA NITROGEN 8 mg/dL (7-20); CALCIUM 8.5 mg/dL (8.4-10.2); CARBON DIOXIDE 24 mmol/L (22-30); CHLORIDE 109 mmol/L (98-107); GLUCOSE 87 mg/dL (75-110); POTASSIUM 4.3 mmol/L (3.6-5.0); TOTAL PROTEIN 5.1 g/dL (6.3-8.2)
[2020-05-30] MEDS: RINGERS SOLUTION,LACTATED 1,000 ML IV PRN ×2 (08:56→14:00)
[2020-05-30] MEDS: PANTOPRAZOLE SODIUM 40 MG VIAL IV SCH ×2 (08:59→22:08)
[2020-05-30] MEDS: ESCITALOPRAM OXALATE 10 MG TABLET PO SCH (09:03)
[2020-05-30] MEDS: LACTOBACILLUS ACIDOPHILUS 250 MG TAB PO SCH ×2 (09:03→17:22)
[2020-05-30] MEDS: FAMOTIDINE 20 MG TABLET PO SCH ×2 (09:03→22:09)
[2020-05-30] MEDS: POTASSIUM CHLORIDE 10 MEQ TABLET.ER PO SCH ×2 (09:03→22:08)
[2020-05-30] MEDS: KETOROLAC TROMETHAMINE INJ/PF 30 MG/1 ML SDV IV PRN ×2 (09:36→17:46)
--- NOTE | 2020-05-30 13:28 | PDOC PROGRESS REPORT ---
Subjective Progress Note for:: 04/30/10 Subjective:: 54 year old female with a long history of alcoholism who was just admitted to [facility] March 29. She was admitted for alcohol withdrawal as well. Her serum alcohol level was in fact less than 10 today. Her drug screen was positive for benzodiazepines. She states that she did not take her bupropion because it was $300 a month. Her estradiol is the only pill that she takes consistently but she has run out of those. Over the last week or so she h as been drinking 1 pint of vodka daily. She began to have abdominal discomfort with nausea and vomiting. She had trouble keeping food down. The pain runs across the upper abdomen and seems to be focused in the left upper quadrant and right upper quadrants. She states it is difficult to stop drinking when her significant other is an alcoholic as well. On exam she has slight tenderness in the subcostal areas bilaterally. Her tongue is slightly dry. Laboratory studies reveal hypokalemia as well as hyperglycemia. Total bilirubin 5.4, direct bilirubin 3.7, AST 1270, ALT 435, alkaline phosphatase 375 and lipase 747.4 urinalysis was not suggestive of infection but there was proteinuria. She will be admitted to the hospital service. She will get IV fluids. She will get benzodiazepine therapy. She will have pain management. And going to find an antidepressant medication that hopefully is generic and will not cost the patient $300 a month. Subjective Progress Note for:: 05/27/20 Subjective:: Patient actually is feeling better. She still feels lightheaded on occasion. Her urine culture in fact turn positive today for gram-negative bacilli. She still feels slightly queasy when eating. Subjective Progress Note for:: 05/28/20 Subjective:: Patient reports some bruising on her abdomen. She has not been getting continuous subcutaneous injections. She still reports hematuria. 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 Requesting to eat broth. No acute events in the last 24 hours. Reason For Visit: ACUTE ON CHRONIC ALCOHOLIC HEPITITIS, ALCOHOL Physical Exam Vital Signs: Temp Pulse Resp BP Pulse Ox 97.7 F 86 16 116/74 98 05/30/20 08:45 05/30/20 07:53 05/30/20 07:53 05/30/20 07:53 05/30/20 07:53 Intake & Output 05/29/20 05/30/20 05/31/20 06:59 06:59 06:59 Intake Total 6931 4343 550 Output Total 450 3500 200 Balance 6481 843 350 Weight 84.7 kg 76.2 kg General appearance: PRESENT: no acute distress, obese Head exam: PRESENT: atraumatic Eye exam: PRESENT: PERRLA Neck exam: ABSENT: carotid bruit, JVD, lymphadenopathy, thyromegaly Respiratory exam: PRESENT: decreased breath sounds GI/Abdominal exam: PRESENT: normal bowel sounds, soft. ABSENT: distended, guar ding, mass, organolmegaly, rebound, tenderness Rectal exam: PRESENT: deferred Extremities exam: PRESENT: full ROM. ABSENT: calf tenderness, clubbing, pedal edema Neurological exam: PRESENT: alert, awake, oriented to person, oriented to place, oriented to time, oriented to situation, CN II-XII grossly intact. ABSENT: motor sensory deficit Psychiatric exam: PRESENT: appropriate affect, normal mood. ABSENT: homicidal ideation, suicidal ideation Results Laboratory Results: 05/29/20 05:12 05/30/20 04:59 05/30/20 04:59 Sodium 138.8 Potassium 4.3 Chloride 109 H Carbon Dioxide 24 Anion Gap 6 BUN 8 Creatinine 0.43 L Est GFR ( Amer) > 60 Glucose 87 Calcium 8.5 Magnesium 2.3 Total Bilirubin 5.0 H AST 403 H Alkaline Phosphatase 197 H Total Protein 5.1 L Albumin 2.7 L Lipase 398.7 H 05/26/20 22:25 Clean Catch Midstream Urine Culture - Final Escherichia Coli Esbl Impressions: Chest X-Ray 05/26/20 11:48 IMPRESSION: NO ACUTE RADIOGRAPHIC FINDING IN THE CHEST. Assessment and Plan - Diagnosis (1) Alcohol withdrawal syndrome Qualifiers: Complication of substance-induced condition: uncomplicated Qualified Code(s): F10.230 - Alcohol dependence with withdrawal, uncomplicated Is this a current diagnosis for this admission?: Yes Plan: minimal symptoms. taper benzo's. continue banana bag (2) Hepatitis, alcoholic Qualifiers: Ascites presence: without ascites Qualified Code(s): K70.10 - Alcoholic hepatitis without ascites Is this a current diagnosis for this admission?: Yes Plan: transaminases improving. Bili stable 05/30/2020-LFTs are continues to improve. Lipase is 398. (3) Acute pancreatitis Qualifiers: Pancreatitis type: alcohol induced Is this a current diagnosis for this admission?: Yes Plan: lipase bumped so will revert to NPO status 05/30- lipase is 390 to start on lquid broth (4) Hypokalemia Is this a current diagnosis for this admission?: Yes Plan: resolved (5) Anemia Qualifiers: Anemia type: iron deficiency Iron deficiency anemia type: unspecified iron deficiency Qualified Code(s): D50.9 - Iron deficiency anemia, unspecified Is this a current diagnosis for this admission?: No Plan: better than yesterday. comtinue to monitor (6) Infection due to ESBL-producing Escherichia coli Is this a current diagnosis for this admission?: Yes Plan: d/c rocephin and start meropenem 05/30/2020-patient is receiving IV meropenem at this time. Antibiotics is started on 05/29/2020-end date is 06/05/2020. - Time Anticipated Discharge Disposition: Home, Self Care Anticipated Discharge Timeframe: within 72 hours
[2020-05-30] MEDS ORDERED: RINGERS SOLUTION,LACTATED 1,000 ML IV PRN (15:44)
[2020-05-30] MEDS: ACETAMINOPHEN 325 MG TABLET PO PRN (17:25)
[2020-05-30] MEDS: NORMAL SALINE 1000 ML 1,000 ML with POTASSIUM CHLORIDE 20 MEQ, MAGNESIUM SULFATE 8 MEQ,... IV SCH ×5 (17:46)
[2020-05-30] MEDS: TRAZODONE HCL 50 MG TABLET PO SCH (22:09)
[2020-05-31] MEDS: MEROPENEM 1 GM in NORMAL SALINE 50 ML IV SCH ×3 (02:40→17:34)
[2020-05-31] MEDS: DIAZEPAM 5 MG TABLET PO SCH ×3 (02:48→20:15)
[2020-05-31 06:54] LABS: HEMATOCRIT 29.9 % (36.0-47.0); HEMOGLOBIN 10.4 g/dL (12.0-15.5); MEAN CORPUSCULAR HEMOGLOBIN 35.8 pg (27.0-33.4); MEAN CORPUSCULAR HGB CONC 34.8 g/dL (32.0-36.0); MEAN CORPUSCULAR VOLUME 103 fl (80-97); PLATELET COUNT 126 10^3/uL (150-450); RED BLOOD COUNT 2.91 10^6/uL (3.72-5.28); RED CELL DISTRIBUTION WIDTH 15.6 % (11.5-14.0); WHITE BLOOD COUNT 3.3 10^3/uL (4.0-10.5)
[2020-05-31 07:03] LABS: ALBUMIN 2.8 g/dL (3.5-5.0); ALKALINE PHOSPHATASE 207 U/L (38-126); ASPARTATE AMINO TRANSFERASE 328 U/L (14-36); BILIRUBIN,DIRECT 3.8 mg/dL (0.0-0.4); BILIRUBIN,TOTAL 4.7 mg/dL (0.2-1.3); BLOOD UREA NITROGEN 5 mg/dL (7-20); CALCIUM 8.4 mg/dL (8.4-10.2); CARBON DIOXIDE 24 mmol/L (22-30); GLUCOSE 90 mg/dL (75-110); POTASSIUM 4.2 mmol/L (3.6-5.0); TOTAL PROTEIN 5.1 g/dL (6.3-8.2)
[2020-05-31 07:15] LABS: ANION GAP 7 (5-19); CHLORIDE 108 mmol/L (98-107)
[2020-05-31 07:41] LABS: ABSOLUTE LYMPHOCYTES# (MANUAL) 0.9 10^3/uL (0.5-4.7); ABSOLUTE MONOCYTES # (MANUAL) 0.7 10^3/uL (0.1-1.4); BAND NEUTROPHILS % (MANUAL) 1 % (3-5); BASOPHILS % (MANUAL) 0 % (0-2); EOSINOPHILS % (MANUAL) 6 % (0-6); LYMPHOCYTES % (MANUAL) 23 % (13-45); MONOCYTES % (MANUAL) 22 % (3-13); SEGMENTED NEUTROPHILS % (MAN) 45 % (42-78); TOTAL CELLS COUNTED 100
[2020-05-31 07:49] LABS: POLYCHROMASIA SLIGHT
[2020-05-31 07:50] LABS: ANISOCYTOSIS 1+; POIKILOCYTOSIS 2+; TARGET CELLS 2+
[2020-05-31 07:51] LABS: PLATELET COMMENT DECREASED
[2020-05-31] MEDS: POTASSIUM CHLORIDE 10 MEQ TABLET.ER PO SCH ×2 (10:26→21:31)
[2020-05-31] MEDS: ESCITALOPRAM OXALATE 10 MG TABLET PO SCH (10:26)
[2020-05-31] MEDS: FAMOTIDINE 20 MG TABLET PO SCH ×2 (10:27→21:31)
[2020-05-31] MEDS: LACTOBACILLUS ACIDOPHILUS 250 MG TAB PO SCH ×2 (10:27→17:34)
[2020-05-31] MEDS: PANTOPRAZOLE SODIUM 40 MG VIAL IV SCH ×2 (10:27→21:30)
[2020-05-31] MEDS: KETOROLAC TROMETHAMINE INJ/PF 30 MG/1 ML SDV IV PRN ×2 (10:36→17:36)
--- NOTE | 2020-05-31 13:10 | PDOC PROGRESS REPORT ---
Subjective Progress Note for:: 05/31/20 Subjective:: 54 year old female with a long history of alcoholism who was just admitted to [facility] March 29. She was admitted for alcohol withdrawal as well. Her serum alcohol level was in fact less than 10 today. Her drug screen was positive for benzodiazepines. She states that she did not take her bupropion because it was $300 a month. Her estradiol is the only pill that she takes consistently but she has run out of those. Over the last week or so she h as been drinking 1 pint of vodka daily. She began to have abdominal discomfort with nausea and vomiting. She had trouble keeping food down. The pain runs across the upper abdomen and seems to be focused in the left upper quadrant and right upper quadrants. She states it is difficult to stop drinking when her significant other is an alcoholic as well. On exam she has slight tenderness in the subcostal areas bilaterally. Her tongue is slightly dry. Laboratory studies reveal hypokalemia as well as hyperglycemia. Total bilirubin 5.4, direct bilirubin 3.7, AST 1270, ALT 435, alkaline phosphatase 375 and lipase 747.4 urinalysis was not suggestive of infection but there was proteinuria. She will be admitted to the hospital service. She will get IV fluids. She will get benzodiazepine therapy. She will have pain management. And going to find an antidepressant medication that hopefully is generic and will not cost the patient $300 a month. Subjective Progress Note for:: 05/27/20 Subjective:: Patient actually is feeling better. She still feels lightheaded on occasion. Her urine culture in fact turn positive today for gram-negative bacilli. She still feels slightly queasy when eating. Subjective Progress Note for:: 05/28/20 Subjective:: Patient reports some bruising on her abdomen. She has not been getting continuous subcutaneous injections. She still reports hematuria. 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 Requesting to eat broth. No acute events in the last 24 hours. 05/31/2020-patient is comfortably in the chair eating lunch. Complaining of bilateral lower extremity swelling. No other complaints. Reason For Visit: ACUTE ON CHRONIC ALCOHOLIC HEPITITIS, ALCOHOL Physical Exam Vital Signs: Temp Pulse Resp BP Pulse Ox 97.3 F 74 18 130/79 H 100 05/31/20 08:49 05/31/20 08:29 05/31/20 08:29 05/31/20 08:29 05/31/20 08:29 Intake & Output 05/30/20 05/31/20 06/01/20 06:59 06:59 06:59 Intake Total 4343 3251 340 Output Total 3500 2600 400 Balance 843 651 -60 Weight 76.2 kg 89.3 kg General appearance: PRESENT: no acute distress, obese Head exam: PRESENT: atraumatic Eye exam: PRESENT: PERRLA Ear exam: PRESENT: normal external ear exam Mouth exam: PRESENT: moist, tongue midline Neck exam: ABSENT: carotid bruit, JVD, lymphadenopathy, thyromegaly Respiratory exam: PRESENT: clear to auscultation [place]. ABSENT: rales, rhonchi, wheezes Cardiovascular exam: PRESENT: RRR. ABSENT: diastolic murmur, rubs, systolic murmur GI/Abdominal exam: PRESENT: normal bowel sounds, soft. ABSENT: distended, guarding, mass, organolmegaly, rebound, tenderness Rectal exam: PRESENT: deferred Extremities exam: PRESENT: full ROM. ABSENT: calf tenderness, clubbing, pedal edema Neurological exam: PRESENT: alert, awake, oriented to person, oriented to place, oriented to time, oriented to situation, CN II-XII grossly intact. ABSENT: motor sensory deficit Psychiatric exam: PRESENT: appropriate affect, normal mood. ABSENT: homicidal ideation, suicidal ideation Results Laboratory Results: 05/31/20 05:47 05/31/20 05:47 05/31/20 05/31/20 05:47 05:47 WBC 3.3 L RBC 2.91 L Hgb 10.4 L Hct 29.9 L MCV 103 H MCH 35.8 H MCHC 34.8 RDW 15.6 H Plt Count 126 L Seg Neutrophils % Not Reportable Sodium 138.8 Potassium 4.2 Chloride 108 H Carbon Dioxide 24 Anion Gap 7 BUN 5 L Creatinine 0.43 L Est GFR ( Amer) > 60 Glucose 90 Calcium 8.4 Magnesium 2.3 Total Bilirubin 4.7 H AST 328 H Alkaline Phosphatase 207 H Total Protein 5.1 L Albumin 2.8 L Lipase 265.9 Impressions: Chest X-Ray 05/26/20 11:48 IMPRESSION: NO ACUTE RADIOGRAPHIC FINDING IN THE CHEST. Assessment and Plan - Diagnosis (1) Alcohol withdrawal syndrome Qualifiers: Complication of substance-induced condition: uncomplicated Qualified Code(s): F10.230 - Alcohol dependence with withdrawal, uncomplicated Is this a current diagnosis for this admission?: Yes Plan: minimal symptoms. taper benzo's. continue banana bag 05/31/2020-no DTs noticed. Plan is to continue CIWA protocol at this time. (2) Hepatitis, alcoholic Qualifiers: Ascites presence: without ascites Qualified Code(s): K70.10 - Alcoholic hepatitis without ascites Is this a current diagnosis for this admission?: Yes Plan: transaminases improving. Bili stable 05/30/2020-LFTs are continues to improve. Lipase is 398. 05/31/2020-LFTs are continue to improve at this time. Patient is 266. (3) Acute pancreatitis Qualifiers: Pancreatitis type: alcohol induced Is this a current diagnosis for this admission?: Yes Plan: lipase bumped so will revert to NPO status 05/30- lipase is 390 to start on lquid broth 05/31/2020-patient denies any abdominal pain. Latest lipase is 266. To start her on cardiac diet from today. (4) Hypokalemia Is this a current diagnosis for this admission?: Yes Plan: resolved (5) Anemia Qualifiers: Anemia type: iron deficiency Iron deficiency anemia type: unspecified iron deficiency Qualified Code(s): D50.9 - Iron deficiency anemia, unspecified Is this a current diagnosis for this admission?: No Plan: better than yesterday. comtinue to monitor 05/31/2020-hemoglobin is 10.4. Stable. (6) Infection due to ESBL-producing Escherichia coli Is this a current diagnosis for this admission?: Yes Plan: d/c rocephin and start meropenem 05/30/2020-patient is receiving IV meropenem at this time. Antibiotics is started on 05/29/2020-end date is 06/05/2020. 05/31/2020-to continue IV antibiotic therapy until 06/05/2020. - Time Anticipated Discharge Disposition: Home, Self Care Anticipated Discharge Timeframe: within 48 hours
[2020-05-31] MEDS: TRAZODONE HCL 50 MG TABLET PO SCH (21:31)
[2020-06-01] MEDS: MEROPENEM 1 GM in NORMAL SALINE 50 ML IV SCH ×3 (02:48→17:47)
[2020-06-01] MEDS: DIAZEPAM 5 MG TABLET PO SCH ×3 (02:48→19:31)
[2020-06-01] MEDS: ACETAMINOPHEN 325 MG TABLET PO PRN ×2 (06:37→10:55)
[2020-06-01] MEDS: LACTOBACILLUS ACIDOPHILUS 250 MG TAB PO SCH ×2 (09:20→17:46)
[2020-06-01] MEDS: POTASSIUM CHLORIDE 10 MEQ TABLET.ER PO SCH ×2 (09:20→21:54)
[2020-06-01] MEDS: ESCITALOPRAM OXALATE 10 MG TABLET PO SCH (09:21)
[2020-06-01] MEDS: FAMOTIDINE 20 MG TABLET PO SCH ×2 (09:22→21:54)
[2020-06-01] MEDS: PANTOPRAZOLE SODIUM 40 MG VIAL IV SCH (09:22)
--- NOTE | 2020-06-01 10:52 | PDOC PROGRESS REPORT ---
Subjective Progress Note for:: 06/01/20 Subjective:: 54 year old female with a long history of alcoholism who was just admitted to [facility] March 29. She was admitted for alcohol withdrawal as well. Her serum alcohol level was in fact less than 10 today. Her drug screen was positive for benzodiazepines. She states that she did not take her bupropion because it was $300 a month. Her estradiol is the only pill that she takes consistently but she has run out of those. Over the last week or so she h as been drinking 1 pint of vodka daily. She began to have abdominal discomfort with nausea and vomiting. She had trouble keeping food down. The pain runs across the upper abdomen and seems to be focused in the left upper quadrant and right upper quadrants. She states it is difficult to stop drinking when her significant other is an alcoholic as well. On exam she has slight tenderness in the subcostal areas bilaterally. Her tongue is slightly dry. Laboratory studies reveal hypokalemia as well as hyperglycemia. Total bilirubin 5.4, direct bilirubin 3.7, AST 1270, ALT 435, alkaline phosphatase 375 and lipase 747.4 urinalysis was not suggestive of infection but there was proteinuria. She will be admitted to the hospital service. She will get IV fluids. She will get benzodiazepine therapy. She will have pain management. And going to find an antidepressant medication that hopefully is generic and will not cost the patient $300 a month. Subjective Progress Note for:: 05/27/20 Subjective:: Patient actually is feeling better. She still feels lightheaded on occasion. Her urine culture in fact turn positive today for gram-negative bacilli. She still feels slightly queasy when eating. Subjective Progress Note for:: 05/28/20 Subjective:: Patient reports some bruising on her abdomen. She has not been getting continuous subcutaneous injections. She still reports hematuria. Subjective Progress Note for:: 05/29/20 Subjective:: vat tender in epigastrum, now with diarrhea 05/30/2020-patient is comfortable in the bed communicating well. Requesting to eat broth. No acute events in the last 24 hours. 05/31/2020-patient is comfortably in the chair eating lunch. Complaining of bilateral lower extremity swelling. No other complaints. 06/01/2020-no acute events in the last 24 hours. Afebrile. Receiving IV meropenem for ESBL E. coli. Complaining of persistent lower extremity swelling to start her on gentle diuresis. Reason For Visit: ACUTE ON CHRONIC ALCOHOLIC HEPITITIS, ALCOHOL Physical Exam Vital Signs: Temp Pulse Resp BP Pulse Ox 97.7 F 73 17 147/85 H 98 06/01/20 08:27 06/01/20 08:27 06/01/20 08:27 06/01/20 08:27 06/01/20 08:27 Intake & Output 05/31/20 06/01/20 06/02/20 06:59 06:59 06:59 Intake Total 3251 2543 550 Output Total 2600 2700 Balance 651 -157 550 Weight 89.3 kg 86.8 kg General appearance: PRESENT: no acute distress Head exam: PRESENT: atraumatic Eye exam: PRESENT: PERRLA Mouth exam: PRESENT: moist, tongue midline Teeth exam: PRESENT: poor dentation Neck exam: ABSENT: carotid bruit, JVD, lymphadenopathy, thyromegaly Respiratory exam: PRESENT: decreased breath sounds Cardiovascular exam: PRESENT: RRR. ABSENT: diastolic murmur, rubs, systolic murmur GI/Abdominal exam: PRESENT: normal bowel sounds, soft. ABSENT: distended, guarding, mass, organolmegaly, rebound, tenderness Rectal exam: PRESENT: deferred Extremities exam: PRESENT: +2 edema Neurological exam: PRESENT: alert, awake, oriented to person, oriented to place, oriented to time, oriented to situation, CN II-XII grossly intact. ABSENT: mot or sensory deficit Psychiatric exam: PRESENT: appropriate affect, normal mood. ABSENT: homicidal ideation, suicidal ideation Results Laboratory Results: 05/31/20 05:47 05/31/20 05:47 Impressions: Chest X-Ray 05/26/20 11:48 IMPRESSION: NO ACUTE RADIOGRAPHIC FINDING IN THE CHEST. Assessment and Plan - Diagnosis (1) Alcohol withdrawal syndrome Qualifiers: Complication of substance-induced condition: uncomplicated Qualified Code(s): F10.230 - Alcohol dependence with withdrawal, uncomplicated Is this a current diagnosis for this admission?: Yes Plan: minimal symptoms. taper benzo's. continue banana bag 05/31/2020-no DTs noticed. Plan is to continue CIWA protocol at this time. 06/01/2020-no DTs noticed. CIWA protocol in place. (2) Hepatitis, alcoholic Qualifiers: Ascites presence: without ascites Qualified Code(s): K70.10 - Alcoholic hepatitis without ascites Is this a current diagnosis for this admission?: Yes Plan: transaminases improving. Bili stable 05/30/2020-LFTs are continues to improve. Lipase is 398. 05/31/2020-LFTs are continue to improve at this time. lipase is 266. (3) Acute pancreatitis Qualifiers: Pancreatitis type: alcohol induced Is this a current diagnosis for this admission?: Yes Plan: lipase bumped so will revert to NPO status 05/30- lipase is 390 to start on lquid broth 05/31/2020-patient denies any abdominal pain. Latest lipase is 266. To start her on cardiac diet from today. 06/01/2020-no complaints of abdominal pains this morning. Tolerating the diet very well. (4) Hypokalemia Is this a current diagnosis for this admission?: Yes Plan: resolved (5) Anemia Qualifiers: Anemia type: iron deficiency Iron deficiency anemia type: unspecified iron deficiency Qualified Code(s): D50.9 - Iron deficiency anemia, unspecified Is this a current diagnosis for this admission?: No Plan: better than yesterday. comtinue to monitor 05/31/2020-hemoglobin is 10.4. Stable. (6) Infection due to ESBL-producing Escherichia coli Is this a current diagnosis for this admission?: Yes Plan: d/c rocephin and start meropenem 05/30/2020-patient is receiving IV meropenem at this time. Antibiotics is started on 05/29/2020-end date is 06/05/2020. 05/31/2020-to continue IV antibiotic therapy until 06/05/2020. 06/01/20-to continue IV meropenem until 06/05/2020. - Time Anticipated Discharge Disposition: Home, Self Care Anticipated Discharge Timeframe: within 72 hours
[2020-06-01] MEDS ORDERED: KETOROLAC TROMETHAMINE INJ/PF 30 MG/1 ML SDV IV PRN (13:13)
[2020-06-01] MEDS ORDERED: IBUPROFEN 800 MG TABLET PO PRN (13:27)
[2020-06-01] MEDS ORDERED: KETOROLAC TROMETHAMINE INJ/PF 30 MG/1 ML SDV ONE ×2 (13:48→17:41)
[2020-06-01] MEDS: KETOROLAC TROMETHAMINE INJ/PF 30 MG/1 ML SDV IV PRN (13:49)
[2020-06-01] MEDS: PANTOPRAZOLE SODIUM 40 MG TABLET.DR PO SCH (17:47)
[2020-06-01] MEDS: TRAZODONE HCL 50 MG TABLET PO SCH (21:54)
[2020-06-01] MEDS ORDERED: KETOROLAC TROMETHAMINE INJ/PF 30 MG/1 ML SDV IV ONE (23:51)
[2020-06-02] MEDS: MEROPENEM 1 GM in NORMAL SALINE 50 ML IV SCH ×3 (01:26→17:10)
[2020-06-02] MEDS: DIAZEPAM 5 MG TABLET PO SCH ×3 (03:05→20:21)
[2020-06-02] MEDS: PANTOPRAZOLE SODIUM 40 MG TABLET.DR PO SCH ×2 (05:22→17:11)
[2020-06-02] MEDS: ESCITALOPRAM OXALATE 10 MG TABLET PO SCH (09:04)
[2020-06-02] MEDS: FAMOTIDINE 20 MG TABLET PO SCH ×2 (09:04→21:07)
[2020-06-02] MEDS: LACTOBACILLUS ACIDOPHILUS 250 MG TAB PO SCH ×2 (09:05→17:11)
[2020-06-02] MEDS: POTASSIUM CHLORIDE 10 MEQ TABLET.ER PO SCH ×2 (09:05→21:07)
--- NOTE | 2020-06-02 11:49 | PDOC PROGRESS REPORT ---
Subjective Progress Note for:: 06/02/20 Subjective:: 54 year old female with a long history of alcoholism who was just admitted to [facility] March 29. She was admitted for alcohol withdrawal as well. Her serum alcohol level was in fact less than 10 today. Her drug screen was positive for benzodiazepines. She states that she did not take her bupropion because it was $300 a month. Her estradiol is the only pill that she takes consistently but she has run out of those. Over the last week or so she h as been drinking 1 pint of vodka daily. She began to have abdominal discomfort with nausea and vomiting. She had trouble keeping food down. The pain runs across the upper abdomen and seems to be focused in the left upper quadrant and right upper quadrants. She states it is difficult to stop drinking when her significant other is an alcoholic as well. On exam she has slight tenderness in the subcostal areas bilaterally. Her tongue is slightly dry. Laboratory studies reveal hypokalemia as well as hyperglycemia. Total bilirubin 5.4, direct bilirubin 3.7, AST 1270, ALT 435, alkaline phosphatase 375 and lipase 747.4 urinalysis was not suggestive of infection but there was proteinuria. She will be admitted to the hospital service. She will get IV fluids. She will get benzodiazepine therapy. She will have pain management. And going to find an antidepressant medication that hopefully is generic and will not cost the patient $300 a month. Subjective Progress Note for:: 05/27/20 Subjective:: Patient actually is feeling better. She still feels lightheaded on occasion. Her urine culture in fact turn positive today for gram-negative bacilli. She still feels slightly queasy when eating. Subjective Progress Note for:: 05/28/20 Subjective:: Patient reports some bruising on her abdomen. She has not been getting continuous subcutaneous injections. She still reports hematuria. Subjective Progress Note for:: 05/29/20 Subjective:: plaster tender in epigastrum, now with diarrhea 05/30/2020-patient is comfortable in the bed communicating well. Requesting to eat broth. No acute events in the last 24 hours. 05/31/2020-patient is comfortably in the chair eating lunch. Complaining of bilateral lower extremity swelling. No other complaints. 06/01/2020-no acute events in the last 24 hours. Afebrile. Receiving IV meropenem for ESBL E. coli. Complaining of persistent lower extremity swelling to start her on gentle diuresis. 06/02/2020-patient is receiving IV meropenem for ESBL E. coli date of completion will be on 4. No acute events in the last 24 hours. Afebrile. Reason For Visit: ACUTE ON CHRONIC ALCOHOLIC HEPITITIS, ALCOHOL Physical Exam Vital Signs: Temp Pulse Resp BP Pulse Ox 97.4 F 74 16 139/84 H 100 06/02/20 11:09 06/02/20 11:09 06/02/20 11:09 06/02/20 11:09 06/02/20 11:09 Intake & Output 06/01/20 06/02/20 06/03/20 06:59 06:59 06:59 Intake Total 2543 2138 100 Output Total 2700 950 Balance -157 1188 100 Weight 86.8 kg 86.5 kg General appearance: PRESENT: no acute distress, obese Head exam: PRESENT: atraumatic Eye exam: PRESENT: PERRLA Mouth exam: PRESENT: moist, tongue midline Teeth exam: PRESENT: poor dentation Neck exam: ABSENT: carotid bruit, JVD, lymphadenopathy, thyromegaly Respiratory exam: PRESENT: decreased breath sounds Cardiovascular exam: PRESENT: RRR. ABSENT: diastolic murmur, rubs, systolic murmur GI/Abdominal exam: PRESENT: ascites Rectal exam: PRESENT: deferred Extremities exam: PRESENT: full ROM. ABSENT: calf tenderness, clubbing, pedal edema Neurological exam: PRESENT: alert, awake, oriented to person, oriented to place, oriented to time, oriented to situation, CN II-XII grossly intact. ABSENT: motor sensory deficit Psychiatric exam: PRESENT: appropriate affect, normal mood. ABSENT: homicidal ideation, suicidal ideation Results Laboratory Results: 05/31/20 05:47 05/31/20 05:47 Impressions: Chest X-Ray 05/26/20 11:48 IMPRESSION: NO ACUTE RADIOGRAPHIC FINDING IN THE CHEST. Assessment and Plan - Diagnosis (1) Alcohol withdrawal syndrome Qualifiers: Complication of substance-induced condition: uncomplicated Qualified Code(s): F10.230 - Alcohol dependence with withdrawal, uncomplicated Is this a current diagnosis for this admission?: Yes Plan: minimal symptoms. taper benzo's. continue banana bag 05/31/2020-no DTs noticed. Plan is to continue CIWA protocol at this time. 06/01/2020-no DTs noticed. CIWA protocol in place. 06/02/20-patient history of A. fib alcohol abuse no DTs noticed. (2) Hepatitis, alcoholic Qualifiers: Ascites presence: without ascites Qualified Code(s): K70.10 - Alcoholic hepatitis without ascites Is this a current diagnosis for this admission?: Yes Plan: transaminases improving. Bili stable 05/30/2020-LFTs are continues to improve. Lipase is 398. 05/31/2020-LFTs are continue to improve at this time. lipase is 266. (3) Acute pancreatitis Qualifiers: Pancreatitis type: alcohol induced Is this a current diagnosis for this admission?: Yes Plan: lipase bumped so will revert to NPO status 05/30- lipase is 390 to start on lquid broth 05/31/2020-patient denies any abdominal pain. Latest lipase is 266. To start her on cardiac diet from today. 06/01/2020-no complaints of abdominal pains this morning. Tolerating the diet very well. (4) Hypokalemia Is this a current diagnosis for this admission?: Yes Plan: resolved (5) Anemia Qualifiers: Anemia type: iron deficiency Iron deficiency anemia type: unspecified iron deficiency Qualified Code(s): D50.9 - Iron deficiency anemia, unspecified Is this a current diagnosis for this admission?: No Plan: better than yesterday. comtinue to monitor 05/31/2020-hemoglobin is 10.4. Stable. (6) Infection due to ESBL-producing Escherichia coli Is this a current diagnosis for this admission?: Yes Plan: d/c rocephin and start meropenem 05/30/2020-patient is receiving IV meropenem at this time. Antibiotics is started on 05/29/2020-end date is 06/05/2020. 05/31/2020-to continue IV antibiotic therapy until 06/05/2020. 06/01/20-to continue IV meropenem until 06/05/2020. - Time Anticipated Discharge Disposition: Home, Self Care Anticipated Discharge Timeframe: within 72 hours
[2020-06-02] MEDS: DIAZEPAM INJ 10 MG/2 ML DISP.SYRIN IV PRN (17:13)
[2020-06-02] MEDS: TRAZODONE HCL 50 MG TABLET PO SCH (21:07)
[2020-06-03] MEDS: MEROPENEM 1 GM in NORMAL SALINE 50 ML IV SCH ×3 (01:43→17:15)
[2020-06-03] MEDS: DIAZEPAM 5 MG TABLET PO SCH ×2 (04:28→17:15)
[2020-06-03] MEDS: PANTOPRAZOLE SODIUM 40 MG TABLET.DR PO SCH ×2 (06:50→17:15)
[2020-06-03 07:07] LABS: HEMATOCRIT 33.2 % (36.0-47.0); HEMOGLOBIN 11.4 g/dL (12.0-15.5); MEAN CORPUSCULAR HEMOGLOBIN 35.6 pg (27.0-33.4); MEAN CORPUSCULAR HGB CONC 34.5 g/dL (32.0-36.0); MEAN CORPUSCULAR VOLUME 103 fl (80-97); PLATELET COUNT 162 10^3/uL (150-450); RED BLOOD COUNT 3.22 10^6/uL (3.72-5.28); RED CELL DISTRIBUTION WIDTH 16.4 % (11.5-14.0); WHITE BLOOD COUNT 4.5 10^3/uL (4.0-10.5)
[2020-06-03 07:30] LABS: ALBUMIN 3.3 g/dL (3.5-5.0); ALKALINE PHOSPHATASE 239 U/L (38-126); ANION GAP 6 (5-19); ASPARTATE AMINO TRANSFERASE 256 U/L (14-36); BILIRUBIN,DIRECT 4.3 mg/dL (0.0-0.4); BILIRUBIN,TOTAL 5.2 mg/dL (0.2-1.3); BLOOD UREA NITROGEN 7 mg/dL (7-20); CARBON DIOXIDE 24 mmol/L (22-30); CHLORIDE 109 mmol/L (98-107); GLUCOSE 99 mg/dL (75-110); POTASSIUM 4.5 mmol/L (3.6-5.0); TOTAL PROTEIN 5.9 g/dL (6.3-8.2)
[2020-06-03 07:55] LABS: ABSOLUTE LYMPHOCYTES# (MANUAL) 1.8 10^3/uL (0.5-4.7); ABSOLUTE MONOCYTES # (MANUAL) 0.5 10^3/uL (0.1-1.4); BASOPHILS % (MANUAL) 0 % (0-2); EOSINOPHILS % (MANUAL) 3 % (0-6); LYMPHOCYTES % (MANUAL) 39 % (13-45); MONOCYTES % (MANUAL) 11 % (3-13); SEGMENTED NEUTROPHILS % (MAN) 47 % (42-78); TOTAL CELLS COUNTED 100
[2020-06-03 07:56] LABS: ANISOCYTOSIS 1+
[2020-06-03 07:57] LABS: PLATELET COMMENT ADEQUATE; TARGET CELLS 2+
[2020-06-03] MEDS: FAMOTIDINE 20 MG TABLET PO SCH ×2 (10:35→21:49)
[2020-06-03] MEDS: POTASSIUM CHLORIDE 10 MEQ TABLET.ER PO SCH ×2 (10:35→21:49)
[2020-06-03] MEDS: ESCITALOPRAM OXALATE 10 MG TABLET PO SCH (10:35)
[2020-06-03] MEDS: LACTOBACILLUS ACIDOPHILUS 250 MG TAB PO SCH ×2 (10:35→17:15)
[2020-06-03] MEDS: TRAMADOL HCL 50 MG TABLET PO PRN ×2 (11:02→18:22)
[2020-06-03] MEDS: ACETAMINOPHEN 325 MG TABLET PO PRN (15:23)
[2020-06-03] MEDS ORDERED: NORMAL SALINE 1000 ML 1,000 ML IV PRN (16:07)
--- NOTE | 2020-06-03 16:11 | PDOC PROGRESS REPORT ---
Subjective Progress Note for:: 06/03/20 Subjective:: The patient is a 54-year-old female with a past medical history of COPD, asthma, migraines, alcohol hepatitis, depression, and alcohol dependence with continuous use who was admitted 05/26/2020 with alcoholic hepatitis, acute pancreatitis, and alcohol withdrawal symptoms. Patient was seen on morning rounds. She is found sitting up to the edge of the bed, comfortably, on room air. She reports generalized body aches; specifically primarily to her back today. She asked to have her tramadol resumed which she states was discontinued a couple of days ago, "due to having had it 5 days and remote." She does tell me that the tramadol has been effective in managing her discomfort. Otherwise, she has no symptoms. She specifically denies fever, chills, chest pain, palpitations, dyspnea, orthopnea, abdominal pain, nausea vomiting and diarrhea. She is tolerating 100% of her meals. She has no other questions or concerns at this time. No concerns per nursing. Reason For Visit: ACUTE ON CHRONIC ALCOHOLIC HEPITITIS, ALCOHOL Physical Exam Vital Signs: Temp Pulse Resp BP Pulse Ox 97.9 F 74 16 134/82 H 98 06/03/20 10:53 06/03/20 10:53 06/03/20 10:53 06/03/20 10:53 06/03/20 10:53 Intake & Output 06/02/20 06/03/20 06/04/20 06:59 06:59 06:59 Intake Total 2138 2770 1050 Output Total 950 Balance 1188 2770 1050 Weight 86.5 kg 86.5 kg 86.5 kg General appearance: PRESENT: no acute distress, cooperative, disheveled, obese, well-developed, well-nourished Head exam: PRESENT: atraumatic, normocephalic Eye exam: PRESENT: conjunctiva pink, EOMI, PERRLA. ABSENT: scleral icterus Mouth exam: PRESENT: moist, tongue midline Teeth exam: PRESENT: poor dentation Respiratory exam: PRESENT: clear to auscultation [place], symmetrical, unlabored. ABSENT: rales, rhonchi, wheezes Cardiovascular exam: PRESENT: RRR, +S1, +S2. ABSENT: diastolic murmur, rubs, systolic murmur Pulses: PRESENT: normal dorsalis pedis pul Vascular exam: PRESENT: normal capillary refill GI/Abdominal exam: PRESENT: ascites, normal bowel sounds, soft, tenderness - Vague, mild. ABSENT: distended, guarding, mass, organolmegaly, rebound Rectal exam: PRESENT: deferred Extremities exam: PRESENT: full ROM. ABSENT: calf tenderness, clubbing, pedal edema Musculoskeletal exam: PRESENT: ambulatory Neurological exam: PRESENT: alert, awake, oriented to person, oriented to place, oriented to time, oriented to situation, CN II-XII grossly intact. ABSENT: motor sensory deficit Psychiatric exam: PRESENT: appropriate affect, normal mood. ABSENT: homicidal ideation, suicidal ideation Skin exam: PRESENT: dry, intact, warm. ABSENT: cyanosis, rash Results Laboratory Results: 06/03/20 06:26 06/03/20 06:26 06/03/20 06/03/20 06:26 06:26 WBC 4.5 RBC 3.22 L Hgb 11.4 L Hct 33.2 L MCV 103 H MCH 35.6 H MCHC 34.5 RDW 16.4 H Plt Count 162 Seg Neutrophils % Not Reportable Sodium 138.7 Potassium 4.5 Chloride 109 H Carbon Dioxide 24 Anion Gap 6 BUN 7 Creatinine 0.50 L Est GFR ( Amer) > 60 Glucose 99 Calcium 9.0 Magnesium 2.2 Total Bilirubin 5.2 H AST 256 H Alkaline Phosphatase 239 H Total Protein 5.9 L Albumin 3.3 L Impressions: Chest X-Ray 05/26/20 11:48 IMPRESSION: NO ACUTE RADIOGRAPHIC FINDING IN THE CHEST. Assessment and Plan - Diagnosis (1) Infection due to ESBL-producing Escherichia coli Is this a current diagnosis for this admission?: Yes Plan: Urine culture shows ESBL E. coli; >100K.colinies Initially treated with rocephin; have discontinued and started meropenem based on culture results. Meropenem Day #5/7; EOT 06/05/20 (2) Hepatitis, alcoholic Qualifiers: Ascites presence: without ascites Qualified Code(s): K70.10 - Alcoholic hepatitis without ascites Is this a current diagnosis for this admission?: Yes Plan: Transaminases continue to improve. Bili stable Hepatitis panel (03/30/20) negative. Continue IVF Follow chemistries Alcohol cessation strongly encouraged. (3) Acute pancreatitis Qualifiers: Pancreatitis type: alcohol induced Is this a current diagnosis for this admission?: Yes Plan: Resolved. Lipase 747-> 260 Now tolerating 100% of meals w/o symptoms (4) Alcohol dependence Qualifiers: Substance use status: in withdrawal Complication of substance-induced condition: uncomplicated Qualified Code(s): F10.230 - Alcohol dependence with withdrawal, uncomplicated Is this a current diagnosis for this admission?: Yes Plan: Cessation encouraged. Start daily multivitamin, thiamine, folic acid supplementation. Discharge planning consulted. (5) Anemia Qualifiers: Anemia type: iron deficiency Iron deficiency anemia type: unspecified iron deficiency Qualified Code(s): D50.9 - Iron deficiency anemia, unspecified Is this a current diagnosis for this admission?: No Plan: Stable. Slight initial downward trend; likely secondary to hemodilution. Hemoglobin now stable at 11.4. Continue multivitamin Anemia panel with a.m. lab work. (6) Alcohol withdrawal syndrome Qualifiers: Complication of substance-induced condition: uncomplicated Qualified Code(s): F10.230 - Alcohol dependence with withdrawal, uncomplicated Is this a current diagnosis for this admission?: Yes Plan: Minimal symptoms. Continue to taper benzodiazepines. (7) Hypokalemia Is this a current diagnosis for this admission?: Yes Plan: resolved (8) Obesity (BMI 30.0-34.9) Is this a current diagnosis for this admission?: Yes Plan: BMI 33.8 Lifestyle modification recommended - Time Time Spent with patient: 35 or more minutes Medications reviewed and adjusted accordingly: Yes Anticipated Discharge Disposition: Home, Self Care Anticipated Discharge Timeframe: within 72 hours
[2020-06-03] MEDS: TRAZODONE HCL 50 MG TABLET PO SCH (21:49)
[2020-06-04] MEDS: MEROPENEM 1 GM in NORMAL SALINE 50 ML IV SCH ×3 (02:00→17:37)
[2020-06-04] MEDS: TRAMADOL HCL 50 MG TABLET PO PRN ×3 (02:06→15:33)
[2020-06-04 04:39] LABS: ABSOLUTE RETICS # 0.085 10^6/uL (0.028-0.122); RETICULOCYTE COUNT (AUTO) 2.73 % (0.66-2.85)
[2020-06-04 05:09] LABS: ALBUMIN 3.1 g/dL (3.5-5.0); ALKALINE PHOSPHATASE 215 U/L (38-126); ANION GAP 6 (5-19); ASPARTATE AMINO TRANSFERASE 223 U/L (14-36); BILIRUBIN,DIRECT 4.5 mg/dL (0.0-0.4); BILIRUBIN,TOTAL 5.4 mg/dL (0.2-1.3); BLOOD UREA NITROGEN 8 mg/dL (7-20); CALCIUM 8.7 mg/dL (8.4-10.2); CARBON DIOXIDE 26 mmol/L (22-30); CHLORIDE 103 mmol/L (98-107); GLUCOSE 108 mg/dL (75-110); POTASSIUM 4.4 mmol/L (3.6-5.0); TOTAL PROTEIN 5.6 g/dL (6.3-8.2)
[2020-06-04] MEDS: DIAZEPAM 5 MG TABLET PO SCH ×2 (05:59→17:37)
[2020-06-04] MEDS: PANTOPRAZOLE SODIUM 40 MG TABLET.DR PO SCH ×2 (05:59→17:37)
[2020-06-04 06:14] LABS: FOLATE 7.36 ng/mL (>2.76)
[2020-06-04] MEDS: POTASSIUM CHLORIDE 10 MEQ TABLET.ER PO SCH ×2 (09:03→21:42)
[2020-06-04] MEDS: ESCITALOPRAM OXALATE 10 MG TABLET PO SCH (09:03)
[2020-06-04] MEDS: LACTOBACILLUS ACIDOPHILUS 250 MG TAB PO SCH ×2 (09:03→17:37)
[2020-06-04] MEDS: FAMOTIDINE 20 MG TABLET PO SCH ×2 (09:03→21:43)
[2020-06-04] MEDS: THIAMINE HCL 100 MG TABLET PO SCH (09:04)
[2020-06-04] MEDS: FOLIC ACID 1 MG TABLET PO SCH (09:04)
[2020-06-04] MEDS: MULTIVITAMIN TABLET PO SCH (09:04)
--- NOTE | 2020-06-04 16:28 | PDOC PROGRESS REPORT ---
Subjective Progress Note for:: 06/04/20 Subjective:: The patient is a 54-year-old female with a past medical history of COPD, asthma, migraines, alcohol hepatitis, depression, and alcohol dependence with continuous use who was admitted 05/26/2020 with alcoholic hepatitis, acute pancreatitis, and alcohol withdrawal symptoms. Patient was seen on morning rounds. She is found resting in bed, comfortably, on room air. She reports generalized body aches; unchanged from yesterday. Appreciates availability of tramadol. Otherwise, she has no symptoms. She specifically denies fever, chills, chest pain, palpitations, dyspnea, orthopnea, abdominal pain, nausea vomiting and diarrhea. She is tolerating 100% of her meals. She has no other questions or concerns at this time. No concerns per nursing. Reason For Visit: ACUTE ON CHRONIC ALCOHOLIC HEPITITIS, ALCOHOL Physical Exam Vital Signs: Temp Pulse Resp BP Pulse Ox 97.7 F 78 16 133/88 H 99 06/04/20 10:48 06/04/20 10:48 06/04/20 10:48 06/04/20 10:48 06/04/20 10:48 Intake & Output 06/03/20 06/04/20 06/05/20 06:59 06:59 06:59 Intake Total 2770 3020 700 Balance 2770 3020 700 Weight 86.5 kg 85 kg General appearance: PRESENT: no acute distress, cooperative, disheveled, obese, well-developed, well-nourished Head exam: PRESENT: atraumatic, normocephalic Eye exam: PRESENT: conjunctiva pink, EOMI, PERRLA. ABSENT: scleral icterus Mouth exam: PRESENT: moist, tongue midline Teeth exam: PRESENT: poor dentation Respiratory exam: PRESENT: clear to auscultation [place], symmetrical, unlabored. ABSENT: rales, rhonchi, wheezes Cardiovascular exam: PRESENT: RRR, +S1, +S2. ABSENT: diastolic murmur, rubs, systolic murmur Pulses: PRESENT: normal dorsalis pedis pul Vascular exam: PRESENT: normal capillary refill GI/Abdominal exam: PRESENT: normal bowel sounds, soft. ABSENT: distended, guar ding, mass, organolmegaly, rebound, tenderness Extremities exam: PRESENT: full ROM. ABSENT: calf tenderness, clubbing, pedal edema Musculoskeletal exam: PRESENT: ambulatory Neurological exam: PRESENT: alert, awake, oriented to person, oriented to place, oriented to time, oriented to situation, CN II-XII grossly intact. ABSENT: motor sensory deficit Psychiatric exam: PRESENT: appropriate affect, normal mood. ABSENT: homicidal ideation, suicidal ideation Skin exam: PRESENT: dry, intact, warm. ABSENT: cyanosis, rash Results Laboratory Results: 06/03/20 06:26 06/04/20 04:28 06/04/20 06/04/20 04:28 04:28 Retic Count (auto) 2.73 Sodium 135.0 L Potassium 4.4 Chloride 103 Carbon Dioxide 26 Anion Gap 6 BUN 8 Creatinine 0.81 Est GFR ( Amer) > 60 Glucose 108 Calcium 8.7 Iron 114.0 TIBC 258 % Saturation 44 Ferritin 600.00 H Total Bilirubin 5.4 H AST 223 H Alkaline Phosphatase 215 H Total Protein 5.6 L Albumin 3.1 L Vitamin B12 709.0 Folate 7.36 Impressions: Chest X-Ray 05/26/20 11:48 IMPRESSION: NO ACUTE RADIOGRAPHIC FINDING IN THE CHEST. Assessment and Plan - Diagnosis (1) Infection due to ESBL-producing Escherichia coli Is this a current diagnosis for this admission?: Yes Plan: Urine culture shows ESBL E. coli; >100K.colinies Initially treated with rocephin; have discontinued and started meropenem based on culture results. Meropenem Day #6/7; EOT 06/05/20 (2) Hepatitis, alcoholic Qualifiers: Ascites presence: without ascites Qualified Code(s): K70.10 - Alcoholic hepatitis without ascites Is this a current diagnosis for this admission?: Yes Plan: Transaminases continue to improve. Bili stable Hepatitis panel (03/30/20) negative. Continue IVF Follow chemistries Alcohol cessation strongly encouraged. Outpatient PCP and GI follow-up. (3) Acute pancreatitis Qualifiers: Pancreatitis type: alcohol induced Is this a current diagnosis for this admission?: Yes Plan: Resolved. Lipase 747-> 260 Now tolerating 100% of meals w/o symptoms (4) Alcohol dependence Qualifiers: Substance use status: in withdrawal Complication of substance-induced condition: uncomplicated Qualified Code(s): F10.230 - Alcohol dependence with withdrawal, uncomplicated Is this a current diagnosis for this admission?: Yes Plan: Cessation encouraged. Start daily multivitamin, thiamine, folic acid supplementation. Discharge planning consulted. (5) Anemia Qualifiers: Anemia type: iron deficiency Iron deficiency anemia type: unspecified iron deficiency Qualified Code(s): D50.9 - Iron deficiency anemia, unspecified Is this a current diagnosis for this admission?: No Plan: Stable. Slight initial downward trend; likely secondary to hemodilution. Hemoglobin now stable at 11.4. Anemia panel unremarkable. Continue multivitamin (6) Alcohol withdrawal syndrome Qualifiers: Complication of substance-induced condition: uncomplicated Qualified Code(s): F10.230 - Alcohol dependence with withdrawal, uncomplicated Is this a current diagnosis for this admission?: Yes Plan: Minimal symptoms. Continue to taper benzodiazepines. (7) Hypokalemia Is this a current diagnosis for this admission?: Yes Plan: resolved (8) Obesity (BMI 30.0-34.9) Is this a current diagnosis for this admission?: Yes Plan: BMI 33.2 Lifestyle modification recommended - Time Time Spent with patient: 15-24 minutes Medications reviewed and adjusted accordingly: Yes Anticipated Discharge Disposition: Home, Self Care Anticipated Discharge Timeframe: within 24 hours
[2020-06-04] MEDS: LOPERAMIDE HCL 2 MG CAPSULE PO PRN (20:25)
[2020-06-04] MEDS: TRAZODONE HCL 50 MG TABLET PO SCH (21:43)
[2020-06-05] MEDS: MEROPENEM 1 GM in NORMAL SALINE 50 ML IV SCH ×2 (01:33→09:41)
[2020-06-05] MEDS: LOPERAMIDE HCL 2 MG CAPSULE PO PRN ×2 (06:31→13:35)
[2020-06-05] MEDS: PANTOPRAZOLE SODIUM 40 MG TABLET.DR PO SCH (06:31)
[2020-06-05] MEDS: DIAZEPAM 5 MG TABLET PO SCH (06:31)
[2020-06-05] MEDS: TRAMADOL HCL 50 MG TABLET PO PRN ×2 (06:35→13:35)
[2020-06-05 07:20] LABS: ALBUMIN 2.9 g/dL (3.5-5.0); ALKALINE PHOSPHATASE 191 U/L (38-126); ANION GAP 7 (5-19); ASPARTATE AMINO TRANSFERASE 203 U/L (14-36); BILIRUBIN,DIRECT 4.3 mg/dL (0.0-0.4); BILIRUBIN,TOTAL 5.5 mg/dL (0.2-1.3); BLOOD UREA NITROGEN 9 mg/dL (7-20); CALCIUM 8.9 mg/dL (8.4-10.2); CARBON DIOXIDE 24 mmol/L (22-30); CHLORIDE 104 mmol/L (98-107); GLUCOSE 100 mg/dL (75-110); TOTAL PROTEIN 5.5 g/dL (6.3-8.2)
[2020-06-05] MEDS: MULTIVITAMIN TABLET PO SCH (09:41)
[2020-06-05] MEDS: FAMOTIDINE 20 MG TABLET PO SCH (09:41)
[2020-06-05] MEDS: FOLIC ACID 1 MG TABLET PO SCH (09:41)
[2020-06-05] MEDS: ESCITALOPRAM OXALATE 10 MG TABLET PO SCH (09:41)
[2020-06-05] MEDS: THIAMINE HCL 100 MG TABLET PO SCH (09:41)
[2020-06-05] MEDS: LACTOBACILLUS ACIDOPHILUS 250 MG TAB PO SCH (09:41)
[2020-06-05] MEDS: POTASSIUM CHLORIDE 10 MEQ TABLET.ER PO SCH (09:41)
--- NOTE | 2020-06-05 14:45 | RADIOLOGY REPORT (SQ) ---
EXAM DESCRIPTION: VENOUS UNILATERAL LOWER IMAGES COMPLETED DATE/TIME: 06/05/2020 2:09 pm REASON FOR STUDY: LLE edema/tenderness COMPARISON: None. TECHNIQUE: Dynamic and static renteria scale and color images acquired of the left leg venous system. Se lected spectral images acquired with additional compression and augmentation maneuvers. The contralat eral common femoral vein and saphenofemoral junction were also imaged. Images stored on PACS. LIMITATIONS: None. FINDINGS: COMMON FEMORAL: Normal phasicity, compression and augmentation. No visualized echogenic ma terial on renteria scale. No defects on color images. FEMORAL: Normal compression and augmentation. No visualized echogenic material on renteria scale. No defe cts on color images. POPLITEAL: Normal compression, augmentation. No visualized echogenic material on renteria scale. No defec ts on color images. CALF VESSELS: Limited evaluation of the peroneal vein. Normal compression, augmentation. No visualiz ed echogenic material on renteria scale. No defects on color images. GSV and SSV: Normal compression, augmentation. No visualized echogenic material on renteria scale. No def ects on color images. ANY DEEP VENOUS INSUFFICIENCY: Not evaluated. ANY EVIDENCE OF POPLITEAL CYST: No. OTHER: No other significant finding. CONTRALATERAL COMMON FEMORAL VEIN: Normal phasicity, compression and augmentation. No visualized echogenic material on renteria scale. No de fects on color images. IMPRESSION: 1. NO EVIDENCE OF DVT OR SVT IN THE LEFT LEG. COMMENT: 1. The results of this examination were given to the nurse on 06/05/2020 at 14:00 hours. TECHNICAL DOCUMENTATION: JOB ID: [id number] [email or web address]- All Rights Reserved Reading location - IP[facility]workstation name: [email or web address]
[2020-06-05 15:58] VITALS: BP 138/91
--- NOTE | 2020-06-06 10:21 | PDOC DISCHARGE SUMMARY ---
Impression - Admit/DC Date/PCP Admission Date/Primary Care Provider: 05/26/20 18:42 LIZY ESCOBAR Discharge Date: 06/05/20 - Discharge Diagnosis (1) Infection due to ESBL-producing Escherichia coli Is this a current diagnosis for this admission?: Yes (2) Hepatitis, alcoholic Is this a current diagnosis for this admission?: Yes (3) Acute pancreatitis Is this a current diagnosis for this admission?: Yes (4) Alcohol dependence Is this a current diagnosis for this admission?: Yes (5) Anemia Is this a current diagnosis for this admission?: No (6) Alcohol withdrawal syndrome Is this a current diagnosis for this admission?: Yes (7) Hypokalemia Is this a current diagnosis for this admission?: Yes (8) Obesity (BMI 30.0-34.9) Is this a current diagnosis for this admission?: Yes (9) Cellulitis Is this a current diagnosis for this admission?: Yes - Additional Information Resuscitation Status: Full Code Discharge Diet: Regular Discharge Activity: Activity As Tolerated, Balance Activity w/Rest, Slowly Increase Activity Referrals: VINNY CHILEL FNP [Primary Care Provider] - (Follow up within 1 week. CALLED AND LEFT A CATALINO AT OFFICE FOR THEM TO CALL PATIENT TO SCHEDULE AN APPOINTMENT.) Prescriptions: Trazodone HCl [Desyrel 50 mg Tablet] 100 mg PO QHS #60 tablet Folic Acid [Folvite 1 mg Tablet] 1 mg PO DAILY #30 tablet Cephalexin Monohydrate [Keflex 500 mg Capsule] 500 mg PO QID #20 capsule Escitalopram Oxalate [Lexapro 10 mg Tablet] 20 mg PO DAILY #60 tablet Multivitamin [Tab-A-Nilsa (Multiple Vitamin) Tablet] 1 tab PO DAILY #30 tablet Thiamine HCl [Thiamine 100 mg Tablet] 100 mg PO DAILY #60 tablet Tramadol HCl [Ultram 50 mg Tablet] 50 mg PO Q6HP PRN #20 tablet PRN Reason: Home Medications: Acetaminophen [Tylenol 325 mg Tablet] 650 mg PO Q4HP PRN #0 tablet 06/05/20 Cephalexin Monohydrate [Keflex 500 mg Capsule] 500 mg PO QID #20 capsule 06/05/20 Escitalopram Oxalate [Lexapro 10 mg Tablet] 20 mg PO DAILY #60 tablet 06/05/20 Folic Acid [Folvite 1 mg Tablet] 1 mg PO DAILY #30 tablet 06/05/20 Multivitamin [Tab-A-Nilsa (Multiple Vitamin) Tablet] 1 tab PO DAILY #30 tablet 06/05/20 Thiamine HCl [Thiamine 100 mg Tablet] 100 mg PO DAILY #60 tablet 06/05/20 Tramadol HCl [Ultram 50 mg Tablet] 50 mg PO Q6HP PRN #20 tablet 06/05/20 Trazodone HCl [Desyrel 50 mg Tablet] 100 mg PO QHS #60 tablet 06/05/20 History of Present Illiness History of Present Illness: Per H&P by Dr. Apodaca: RUDDY PAN is a 54 year old female with a long history of alcoholism who was just admitted to [facility] March 29. She was admitted for alcohol withdrawal as well. Her serum alcohol level was in fact less than 10 today. Her drug screen was positive for benzodiazepines. She states that she did not take her bupropion because it was $300 a month. Her estradiol is the only pill that she takes consistently but she has run out of those. Over the last week or so she has been drinking 1 pint of vodka daily. She began to have abdominal discomfort with nausea and vomiting. She had trouble keeping food down. The pain runs across the upper abdomen and seems to be focused in the left upper quadrant and right upper quadrants. She states it is difficult to stop drinking when her significant other is an alcoholic as richardson fay. On exam she has slight tenderness in the subcostal areas bilaterally. Her tongue is slightly dry. Laboratory studies reveal hypokalemia as well as hyperglycemia. Total bilirubin 5.4, direct bilirubin 3.7, AST 1270, ALT 435, alkaline phosphatase 375 and lipase 747.4 urinalysis was not suggestive of infection but there was proteinuria. She will be admitted to the hospital service. She will get IV fluids. She will get benzodiazepine therapy. She will have pain management. And going to find an antidepressant medication that hopefully is generic and will not cost the patient $300 a month. Hospital Course Hospital Course: (1) Infection due to ESBL-producing Escherichia coli Urine culture shows ESBL E. coli; >100K.colinies Initially treated with rocephin; have discontinued and started meropenem based on culture results. Completed full course of meropenem. (2) Hepatitis, alcoholic Transaminases continue to improve. Bili stable Hepatitis panel (03/30/20) negative. Alcohol cessation strongly encouraged. Outpatient PCP and GI follow-up. (3) Acute pancreatitis Resolved. Lipase 747-> 260 Now tolerating 25-100% of meals w/ mild symptoms of nausea without emesis (4) Alcohol dependence Cessation encouraged. Continue daily multivitamin, thiamine, folic acid supplementation. (5) Anemia Stable. Slight initial downward trend; likely secondary to hemodilution. Hemoglobin now stable at 11.4. Anemia panel unremarkable. Continue multivitamin (6) Alcohol withdrawal syndrome Minimal symptoms. -Tapered off benzodiazepines. (7) Hypokalemia resolved (8) Obesity (BMI 30.0-34.9) BMI 33.2 Lifestyle modification recommended (9) Cellulitis Patient complains of edema, erythema, and tenderness to left foot. She reports history of DVT. Venous Doppler is negative. She does have +1, nonpitting, edema to the left foot. Scant erythema noted to the medial surface of her foot just inferior to the medial malleolus. No skin breakdown noted. She is discharged home on Keflex for treatment of cellulitis. Physical Exam Vital Signs: Temp Pulse Resp BP Pulse Ox 97.8 F 78 17 138/91 H 95 06/05/20 15:51 06/05/20 15:51 06/05/20 15:51 06/05/20 15:51 06/05/20 15:51 Intake & Output 06/05/20 06/06/20 06/07/20 06:59 06:59 06:59 Intake Total 2870 800 Balance 2870 800 Weight 85.2 kg General appearance: PRESENT: no acute distress, obese, well-developed, well- nourished Head exam: PRESENT: atraumatic, normocephalic Eye exam: PRESENT: conjunctiva pink, EOMI, PERRLA. ABSENT: scleral icterus Mouth exam: PRESENT: moist, tongue midline Respiratory exam: PRESENT: clear to auscultation [place], symmetrical, unlabored. ABSENT: rales, rhonchi, wheezes Cardiovascular exam: PRESENT: RRR. ABSENT: diastolic murmur, rubs, systolic murmur Pulses: PRESENT: normal dorsalis pedis pul Vascular exam: PRESENT: normal capillary refill Rectal exam: PRESENT: deferred Extremities exam: PRESENT: full ROM, +1 edema - Left foot; slight medial erythema. ABSENT: calf tenderness, clubbing, pedal edema Neurological exam: PRESENT: alert, awake, oriented to person, oriented to place, oriented to time, oriented to situation, CN II-XII grossly intact. ABSENT: motor sensory deficit Psychiatric exam: PRESENT: appropriate affect, normal mood. ABSENT: homicidal ideation, suicidal ideation Skin exam: PRESENT: dry, erythema, intact, warm. ABSENT: cyanosis, rash Results Laboratory Results: WBC 4.5 10^3/uL (4.0-10.5) 06/03/20 06:26 RBC 3.22 10^6/uL (3.72-5.28) L 06/03/20 06:26 Hgb 11.4 g/dL (12.0-15.5) L 06/03/20 06:26 Hct 33.2 % (36.0-47.0) L 06/03/20 06:26 MCV 103 fl (80-97) H 06/03/20 06:26 MCH 35.6 pg (27.0-33.4) H 06/03/20 06:26 MCHC 34.5 g/dL (32.0-36.0) 06/03/20 06:26 RDW 16.4 % (11.5-14.0) H 06/03/20 06:26 Plt Count 162 10^3/uL (150-450) 06/03/20 06:26 Lymph % (Auto) Not Reportable 06/03/20 06:26 Dunn % (Auto) Not Reportable 06/03/20 06:26 Eos % (Auto) Not Reportable 06/03/20 06:26 Baso % (Auto) Not Reportable 06/03/20 06:26 Reticulocyte # 0.085 10^6/uL (0.028-0.122) 06/04/20 04:28 Absolute Neuts (auto) Not Reportable 06/03/20 06:26 Absolute Lymphs (auto) Not Reportable 06/03/20 06:26 Absolute Monos (auto) Not Reportable 06/03/20 06:26 Absolute Eos (auto) Not Reportable 06/03/20 06:26 Absolute Basos (auto) Not Reportable 06/03/20 06:26 Total Counted 100 06/03/20 06:26 Seg Neutrophils % Not Reportable 06/03/20 06:26 Seg Neuts % (Manual) 47 % (42-78) 06/03/20 06:26 Band Neutrophils % 1 % (3-5) L 05/31/20 05:47 Lymphocytes % (Manual) 39 % (13-45) 06/03/20 06:26 Atypical Lymphs % 3 % (0) 05/31/20 05:47 Monocytes % (Manual) 11 % (3-13) 06/03/20 06:26 Eosinophils % (Manual) 3 % (0-6) 06/03/20 06:26 Basophils % (Manual) 0 % (0-2) 06/03/20 06:26 Abs Neuts (Manual) 2.1 10^3/uL (1.7-8.2) 06/03/20 06:26 Abs Lymphs (Manual) 1.8 10^3/uL (0.5-4.7) 06/03/20 06:26 Abs Monocytes (Manual) 0.5 10^3/uL (0.1-1.4) 06/03/20 06:26 Absolute Eos (Manual) 0.1 10^3/uL (0.0-0.6) 06/03/20 06:26 Abs Basophils (Manual) 0.0 10^3/uL (0.0-0.2) 06/03/20 06:26 Platelet Comment ADEQUATE 06/03/20 06:26 Polychromasia SLIGHT 05/31/20 05:47 Poikilocytosis 2+ 05/31/20 05:47 Basophilic Stippling PRESENT 05/31/20 05:47 Anisocytosis 1+ 06/03/20 06:26 Macrocytosis 1+ 06/03/20 06:26 Target Cells 2+ 06/03/20 06:26 Retic Count (auto) 2.73 % (0.66-2.85) 06/04/20 04:28 PT 15.6 SEC (11.4-15.4) H 05/26/20 09:55 INR 1.22 05/26/20 09:55 APTT 29.3 SEC (23.5-35.8) 05/26/20 09:55 Sodium 134.7 mmol/L (137-145) L 06/05/20 06:25 Potassium 4.0 mmol/L (3.6-5.0) 06/05/20 06:25 Chloride 104 mmol/L (98-107) 06/05/20 06:25 Carbon Dioxide 24 mmol/L (22-30) 06/05/20 06:25 Anion Gap 7 (5-19) 06/05/20 06:25 BUN 9 mg/dL (7-20) 06/05/20 06:25 Creatinine 0.42 mg/dL (0.52-1.25) L 06/05/20 06:25 Est GFR ( Amer) > 60 (>60) 06/05/20 06:25 Est GFR (MDRD) Non-Af > 60 (>60) 06/05/20 06:25 Glucose 100 mg/dL (75-110) 06/05/20 06:25 POC Glucose 73 mg/dL (70-110) 05/30/20 10:18 Calcium 8.9 mg/dL (8.4-10.2) 06/05/20 06:25 Magnesium 2.2 mg/dL (1.6-2.3) 06/03/20 06:26 Iron 114.0 ug/dL (37-170) 06/04/20 04:28 TIBC 258 ug/dL (250-450) 06/04/20 04:28 % Saturation 44 % 06/04/20 04:28 Ferritin 600.00 ng/mL (11.1-264.0) H 06/04/20 04:28 Total Bilirubin 5.5 mg/dL (0.2-1.3) H 06/05/20 06:25 Direct Bilirubin 4.3 mg/dL (0.0-0.4) H 06/05/20 06:25 Neonat Total Bilirubin Not Reportable 06/05/20 06:25 Neonat Direct Bilirubin Not Reportable 06/05/20 06:25 Neonat Indirect Bili Not Reportable 06/05/20 06:25 AST 203 U/L (14-36) H 06/05/20 06:25 ALT 103 U/L (<35) H 06/05/20 06:25 Alkaline Phosphatase 191 U/L (38-126) H 06/05/20 06:25 Total Protein 5.5 g/dL (6.3-8.2) L 06/05/20 06:25 Albumin 2.9 g/dL (3.5-5.0) L 06/05/20 06:25 Lipase 135.6 U/L (23-300) 06/05/20 06:25 Vitamin B12 709.0 pg/mL (239-931) 06/04/20 04:28 Folate 7.36 ng/mL (>2.76) 06/04/20 04:28 Urine Color RED 05/26/20 22:25 Urine Appearance TURBID 05/26/20 22:25 Urine pH 5.0 (5.0-9.0) 05/26/20 22:25 Ur Specific [place] 1.027 05/26/20 22:25 Urine Protein 100 mg/dL (NEGATIVE) H 05/26/20 22:25 Urine Glucose (UA) NEGATIVE mg/dL (NEGATIVE) 05/26/20 22:25 Urine Ketones NEGATIVE mg/dL (NEGATIVE) 05/26/20 22:25 Urine Blood NEGATIVE (NEGATIVE) 05/26/20 22:25 Urine Nitrite NEGATIVE (NEGATIVE) 05/26/20 22:25 Urine Bilirubin SMALL (NEGATIVE) H 05/26/20 22:25 Urine Urobilinogen 4.0 mg/dL (<2.0) H 05/26/20 22:25 Ur Leukocyte Esterase NEGATIVE (NEGATIVE) 05/26/20 22:25 Urine WBC (Auto) 8 /HPF 05/26/20 22:25 Urine RBC (Auto) 28 /HPF 05/26/20 11:10 U Hyaline Cast (Auto) 196 /LPF 05/26/20 11:10 Urine Bacteria (Auto) 1+ /HPF 05/26/20 22:25 Squamous Epi Cells Auto 3 /HPF 05/26/20 11:10 Amorphous Sediment Auto TRACE /HPF 05/26/20 22:25 Urine Mucus (Auto) MANY /LPF 05/26/20 22:25 Urine Ascorbic Acid NEGATIVE (NEGATIVE) 05/26/20 22:25 Urine Opiates Screen NEGATIVE 05/26/20 11:10 Urine Methadone Screen NEGATIVE 05/26/20 11:10 Ur Barbiturates Screen NEGATIVE 05/26/20 11:10 Ur Phencyclidine Scrn NEGATIVE 05/26/20 11:10 Ur Amphetamines Screen NEGATIVE 05/26/20 11:10 U Benzodiazepines Scrn UNCONFIRMED POSITIVE 05/26/20 11:10 Urine Cocaine Screen NEGATIVE 05/26/20 11:10 U Marijuana (THC) Screen NEGATIVE 05/26/20 11:10 Serum Alcohol < 10 mg/dL (NONE DETECTED) 05/26/20 09:55 Impressions: Chest X-Ray 05/26/20 11:48 IMPRESSION: NO ACUTE RADIOGRAPHIC FINDING IN THE CHEST. Venous Doppler Study 06/05/20 00:00 IMPRESSION: 1. NO EVIDENCE OF DVT OR SVT IN THE LEFT LEG. Plan Plan of Treatment: Patient is discharged home in stable condition. Follow-up with primary care provider within 1 week. Complete full course of antibiotic therapy. Take other medication as prescribed. Eat a heart healthy diet. Do NOT smoke. Do not drink alcohol. Return to emergency department as needed for concerning symptoms. Time Spent: Greater than 30 Minutes Stroke Is this a Stroke Patient?: No Acute Heart Failure Is this a Heart Failure Patient?: No
== END 2020-06-05 16:48 | disposition home or self-care (01) | DRG 896 ==
LOC: ER 05:54 → EH 18:42 → 4S 20:30
PROVIDERS: ADMIT Hospitalist; ATTEND Registered Nurse
PROC: HZ2ZZZZ Detoxification Services for Substance Abuse Treatment (ICD-10-PCS; principal; 2020-05-26)
DX: F10.231 Alcohol dependence with withdrawal delirium (principal); K85.20 Alcohol induced acute pancreatitis without necrosis or infection; E87.1 Hypo-osmolality and hyponatremia; Z16.12 Extended spectrum beta lactamase (ESBL) resistance; L03.116 Cellulitis of left lower limb; F33.1 Major depressive disorder, recurrent, moderate; N30.01 Acute cystitis with hematuria; K70.10 Alcoholic hepatitis without ascites; E87.6 Hypokalemia; B96.20 Unspecified Escherichia coli [E. coli] as the cause of diseases classified elsewhere; R73.9 Hyperglycemia, unspecified; Y90.0 Blood alcohol level of less than 20 mg/100 ml; E66.9 Obesity, unspecified; D69.6 Thrombocytopenia, unspecified; R47.81 Slurred speech; D50.9 Iron deficiency anemia, unspecified; Z68.33 Body mass index [BMI] 33.0-33.9, adult; Z91.14 Patient's other noncompliance with medication regimen; Z59.9 Problem related to housing and economic circumstances, unspecified; Z86.718 Personal history of other venous thrombosis and embolism; Z79.899 Other long term (current) drug therapy; Z82.61 Family history of arthritis; Z83.6 Family history of other diseases of the respiratory system; Z88.2 Allergy status to sulfonamides; Z88.8 Allergy status to other drugs, medicaments and biological substances; Z63.72 Alcoholism and drug addiction in family; Z79.890 Hormone replacement therapy
CPT/HCPCS: 36415; 71045; 80053; 80307; 81001; 82607; 82728; 82746; 82962; 83540; 83550; 83690; 83735; 85025; 85027; 85045; 85610; 85730; 87086; 87088; 87186; 93005; 93010; 93971; 96361; 96365; 96366; 96375; 99285; C9113; J0696; J0780; J1644; J1885; J2060; J2185; J3360; J3411; J3475; J3480; J3490; J7030; J7120

== ENCOUNTER 2020-07-01 06:05 | Emergency (ER) | payer OTHER ==
[2020-07-01] MEDS ORDERED: LORAZEPAM INJ 2 MG/1 ML VIAL IV ONE (07:08)
[2020-07-01] MEDS ORDERED: NORMAL SALINE 1000 ML 1,000 ML IV ONE (07:09)
[2020-07-01] MEDS ORDERED: THIAMINE HCL 100 MG, FOLIC ACID 1 MG in NORMAL SALINE 250 ML IV ONE ×2 (07:10→10:00)
[2020-07-01 07:16] LABS: ABSOLUTE BASOPHILS # (AUTO) 0.1 10^3/uL (0.0-0.2); ABSOLUTE EOSINOPHILS # (AUTO) 0.2 10^3/uL (0.0-0.6); ABSOLUTE MONOCYTES (AUTO) 0.6 10^3/uL (0.1-1.4); ABSOLUTE NEUT (AUTO) 5.6 10^3/uL (1.7-8.2); BASOPHILS % (AUTO) 1.1 % (0-2); EOSINOPHILS % (AUTO) 2.6 % (0-6); HEMATOCRIT 40.5 % (36.0-47.0); HEMOGLOBIN 14.2 g/dL (12.0-15.5); LYMPHOCYTES % (AUTO) 23.5 % (13-45); MEAN CORPUSCULAR HEMOGLOBIN 36.5 pg (27.0-33.4); MEAN CORPUSCULAR HGB CONC 35.1 g/dL (32.0-36.0); MEAN CORPUSCULAR VOLUME 104 fl (80-97); MONOCYTES % (AUTO) 7.2 % (3-13); PLATELET COUNT 290 10^3/uL (150-450); RED BLOOD COUNT 3.89 10^6/uL (3.72-5.28); RED CELL DISTRIBUTION WIDTH 15.2 % (11.5-14.0); SEGMENTED NEUTROPHILS % (AUTO) 65.6 % (42-78); TOTAL CELLS COUNTED % (AUTO) 100 %; WHITE BLOOD COUNT 8.5 10^3/uL (4.0-10.5)
[2020-07-01 07:26] LABS: APPEARANCE,URINE SLIGHTLY-CLOUDY; BILIRUBIN,URINE NEGATIVE (NEGATIVE); COLOR,URINE AMBER; GLUCOSE, URINE NEGATIVE (NEGATIVE); KETONES,URINE NEGATIVE (NEGATIVE); LEUKOCYTE ESTERASE,URINE NEGATIVE (NEGATIVE); NITRITE,URINE NEGATIVE (NEGATIVE); PROTEIN,URINE NEGATIVE (NEGATIVE); URINE SPECIFIC GRAVITY 1.006; UROBILINOGEN,URINE NEGATIVE mg/dL (<2.0)
[2020-07-01 07:37] LABS: URINE AMPHETAMINES SCREEN NEGATIVE; URINE BARBITURATES SCREEN NEGATIVE; URINE COCAINE SCREEN NEGATIVE; URINE MARIJUANA (THC) SCREEN NEGATIVE; URINE METHADONE SCREEN NEGATIVE; URINE PHENCYCLIDINE SCREEN NEGATIVE
[2020-07-01 07:44] LABS: URINE BENZODIAZEPINES SCREEN UNCONFIRMED POSITIVE
[2020-07-01 08:34] LABS: ALBUMIN 3.7 g/dL (3.5-5.0); ALCOHOL < 10 mg/dL (NONE DETECTED); ALKALINE PHOSPHATASE 254 U/L (38-126); ANION GAP 14 (5-19); ASPARTATE AMINO TRANSFERASE 286 U/L (14-36); BILIRUBIN,DIRECT 1.6 mg/dL (0.0-0.4); BLOOD UREA NITROGEN 5 mg/dL (7-20); CALCIUM 8.5 mg/dL (8.4-10.2); CARBON DIOXIDE 25 mmol/L (22-30); CHLORIDE 99 mmol/L (98-107); GLUCOSE 101 mg/dL (75-110); POTASSIUM 3.6 mmol/L (3.6-5.0); TOTAL PROTEIN 6.7 g/dL (6.3-8.2)
--- NOTE | 2020-07-01 10:06 | EKG REPORT ---
SEVERITY:- ABNORMAL ECG - SINUS RHYTHM PROBABLE LEFT ATRIAL ABNORMALITY BORDERLINE T ABNORMALITIES, ANT-LAT LEADS BORDERLINE PROLONGED QT INTERVAL : Confirmed by: Marla Abdullahi MD 01-Jul-2020 10:05:59
--- NOTE | 2020-07-01 10:09 | ER Document Report ---
ED General - General Chief Complaint: ETOH Abuse Stated Complaint: WITHDRAWLS Time Seen by Provider: 07/01/20 06:52 Primary Care Provider: VINNY CHILEL FNP [Primary Care Provider] - Follow up as needed Notes: 54-year-old woman presenting to the emergency department with a history of alcohol abuse she presents today stating that she is withdrawing from alcohol and having shakiness and visual hallucinations. She has had similar symptoms in the past. Her last drink was last night, she drinks vodka primarily and states that she had been abstinent since her discharge from the hospital 1 week ago. TRAVEL OUTSIDE OF THE [place] IN LAST 30 DAYS: No - Related Data Allergies/Adverse Reactions: iodine [Iodine] Allergy (Severe, Verified 07/01/20 06:15) Sulfa (Sulfonamide Antibiotics) Allergy (Severe, Verified 07/01/20 06:15) Past Medical History - Social History Smoking Status: Never Smoker Frequency of alcohol use: Heavy Drug Abuse: None Family History: Arthritis, COPD, Other - Patient also reports family history of bladder "problems " Patient has homicidal ideation: No - Past Medical History Cardiac Medical History: Denies: Hx Coronary Artery Disease, Hx Heart Attack, Hx Hypertension Pulmonary Medical History: Reports: Hx Bronchitis - Asthmatic Broncitis occasionally, Hx COPD, Hx Pneumonia Denies: Hx Asthma Neurological Medical History: Reports: Hx Migraine. Denies: Hx Cerebrovascular Accident, Hx Seizures Endocrine Medical History: Denies: Hx Diabetes Mellitus Type 2 GI Medical History: Reports: Hx Hepatitis - Alcohol related Musculoskeletal Medical History: Denies Hx Arthritis Skin Medical History: Denies Hx Eczema, Denies Hx Psoriasis Psychiatric Medical History: Reports: Hx Depression Infectious Medical History: Reports: Hx Hepatitis - Alcohol related. Denies: Hx HIV Past Surgical History: Reports: Hx Hysterectomy, Hx Orthopedic Surgery - Ankle, Other - Possible left parotid gland removal. Denies: Hx Pacemaker - Immunizations Hx Diphtheria, Pertussis, Tetanus Vaccination: Yes Hx Pneumococcal Vaccination: 06/22/10 Review of Systems - Review of Systems Notes: Constitutional: See HPI HENT: Negative for sore throat. Eyes: Negative for visual changes. Cardiovascular: Negative for chest pain. Respiratory: Negative for shortness of breath. Gastrointestinal: Negative for abdominal pain, vomiting or diarrhea. Genitourinary: Negative for dysuria. Musculoskeletal: Negative for back pain. Skin: Negative for rash. Neurological: Negative for headaches, weakness or numbness. 10 point ROS negative except as marked above and in HPI. Physical Exam - Vital signs Vitals: Temp Pulse Resp BP Pulse Ox 98.0 F 128 H 20 137/87 H 100 07/01/20 06:10 07/01/20 06:10 07/01/20 06:10 07/01/20 06:10 07/01/20 06:10 - Notes Notes: PHYSICAL EXAMINATION: Physical Exam: General: Well-nourished well-developed 54-year-old female in no acute distress HEENT: NC/AT, pupils equal round and reactive to light, MM moist,nares clear, oropharynx clear, airway patent Neck: supple, no adenopathy, no masses. Good range of motion Lungs: clear, no wheezing, no rales no rhonchi CVS: Regular rate and rhythm no murmur gallop or rub Abdomen: Soft, active, nontender, no masses, no hepatosplenomegaly Ext: No edema, clubbing or cyanosis. Neuro: Alert and responsive, moving all 4 extremities on command, cranial nerves intact, no focal findings, + tremor Skin: Intact no open lesions, no rash PSYCH: Normal mood, normal affect. Course - Re-evaluation Re-evalutation: 07/01/20 10:26 Patient states that she does not want to go to alcohol rehab. She is ready to go home. Has requested something at home to help her with the shakes and withdrawal related symptoms. I am giving her hydroxyzine at 50 mg every 6 hours as needed. I have encouraged her to stop drinking to start of a multivitamin and folate and to follow-up with her outpatient doctors. If she changes her mind regarding detox/rehab we are able to help. Patient acknowledges understanding of this states that she does not want to go to rehab at this time. - Vital Signs Vital signs: Temp Pulse Resp BP Pulse Ox 98.0 F 128 H 21 H 140/77 H 98 07/01/20 06:10 07/01/20 06:10 07/01/20 10:01 07/01/20 10:00 07/01/20 10:01 - Laboratory Result Diagrams: 07/01/20 06:50 07/01/20 08:07 Laboratory results interpreted by me: 07/01/20 07/01/20 06:50 08:07 MCV 104 H MCH 36.5 H RDW 15.2 H BUN 5 L Total Bilirubin 3.0 H Direct Bilirubin 1.6 H AST 286 H ALT 80 H Alkaline Phosphatase 254 H 07/01/20 10:10 I have reviewed laboratory data and used this information for the treatment decisions regarding the patient. - EKG Interpretation by Me Rate: Normal - EKG interpreted by Dr. Williamson: Normal sinus rhythm, rate 98, QT interval 80, normal axis, DC interval 164, probable right atrial abnormality, borderline T wave abnormality, when compared to previous EKG 05/2020 no significant EKG changes are noted. Discharge - Discharge Clinical Impression: Alcohol abuse Alcohol withdrawal syndrome Qualifiers: Complication of substance-induced condition: uncomplicated Qualified Code(s): F10.230 - Alcohol dependence with withdrawal, uncomplicated Condition: Good Disposition: HOME, SELF-CARE Instructions: Alcohol Withdrawl ([facility]) Additional Instructions: Seen in the emergency department today with symptoms of alcohol withdrawal syndrome. Please use the medication hydroxyzine as prescribed, please abstain from alcohol use, please begin multivitamin and folate. If you change your mind regarding alcohol rehab you may return for assistance as needed. HOME CARE INSTRUCTIONS & INFORMATION: Thank you for choosing us for your medical needs. We hope you're satisfied with the care you received. After you leave, you must properly care for your problem and, at the same time, observe its progress. Any condition can change. Some illnesses can change rapidly over hours or days. If your condition worsens, return to the Emergency Department or see your physician promptly. ABOUT YOUR X-RAYS AND EKG'S: If you had an EKG or X-rays taken, they have been read by the Emergency Physician. The X-rays and EKG's will also be read by a Radiologist or Mud Grinder within 24 hours. If discrepancies are noted, you will be notified by telephone. Please be certain the ED has a correct telephone number & address where you can be reached. Also, realize that some fractures or abnormalities do not show up on initial X-rays. If your symptoms continue, see your physician. ABOUT YOUR LABORATORY TEST: If you had laboratory tests, the results have been reviewed by the Emergency Physician. Some test results (for example cultures) may not be available for several days. You will be contacted if any test result shows you need additional treatment. Please be certain the ED has a correct telephone number and address where you can be reached. ABOUT YOUR MEDICATIONS: You will receive instructions on how to take your medicine on the prescription label you receive. Additional information may be provided by the Pharmacy. If you have questions afterwards, call the ED for clarification or further instructions. Some prescribed medications may cause drowsiness. Do not perform tasks such as driving a car or operating machinery without consulting your Pharmacist. If you feel you need a refill of pain medication, your condition will need re-evaluation. Please do not call for a refill of any medication. ABOUT YOUR SIGNATURE: Signature of this document acknowledges to followin. Understanding that you received emergency treatment and that you may be released before al medical problems are known or treated. Please be certain the ED has a correct phone number & address where you can be reached. 2. Acknowledgement that you will arrange for follow-up care as recommended. 3. Authorization for the Emergency Physician to provide information to your follow-up Physician in order to maximize your care. AT ANY TIME, IF YOUR SYMPTOMS CHANGE SIGNIFICANTLY OR WORSEN OR YOU DEVELOP NEW SYMPTOMS, RETURN TO THE EMERGENCY DEPARTMENT IMMEDIATELY FOR RE-EVALUATION. OUR GOAL IS TO PROVIDE EXCELLENT MEDICAL CARE! WE HOPE THAT WE HAVE MET YOUR EXPECTATIONS DURING YOUR EMERGENCY DEPARTMENT VISIT AND THAT YOU FEEL YOU HAVE RECEIVED EXCELLENT CARE! Prescriptions: Hydroxyzine HCl 50 mg PO Q6 PRN #20 ml PRN Reason: Anxiety/Agitation Referrals: VINNY CHILEL FNP [Primary Care Provider] - Follow up as needed
[2020-07-01 10:57] VITALS: BP 144/80
== END 2020-07-01 11:01 | disposition home or self-care (01) ==
LOC: ER 06:05
DX: F10.230 Alcohol dependence with withdrawal, uncomplicated (principal); J44.9 Chronic obstructive pulmonary disease, unspecified; Z88.2 Allergy status to sulfonamides
CPT/HCPCS: 93005; 99284; 96361; 96375; 96365; 36415; 80307 ×2; 85025; 80053; 81001; 93010; J3490; J2060; J3411; J7030; J7050

== ENCOUNTER 2020-08-02 20:48 | Emergency (ER) | payer OTHER ==
[~2020-08-02 20:48] MED LIST: SODIUM BICARBONATE 8.4% INJ 50 MEQ/50 ML DISP.SYRIN ONE
[2020-08-02] MEDS ORDERED: NORMAL SALINE 1000 ML 1,000 ML IV ONE (21:21)
--- NOTE | 2020-08-02 21:27 | ER Document Report ---
Entered by RADHA ROBERTSON SCRIBE 08/02/202054 Acting as scribe for:LIZETT BARKER, DO ED Resuscitation <ARINA CALL - Last Filed: 08/02/20 22:10> - General Mode of Arrival: Ambulatory Information source: Patient TRAVEL OUTSIDE OF THE [place] IN LAST 30 DAYS: No <LIZETT BARKER - Last Filed: 08/03/20 02:24> - General Stated Complaint: CARDIAC ARREST Primary Care Provider: VINNY CHILEL FNP [Primary Care Provider] - Follow up as needed Notes: This 54 year old female patient presents to the emergency department today after being found unresponsive by her per EMS. EMS reports when they arrived the patient was in asystole and was apneic. EMS administered 2mg of epinephrine, she went into ventricular fibrillation and she was shocked, she then went into V. tach, 150 mg of amiodarone, Levophed, and a Alban airway were placed. Patient has bilateral anterior tibia IOs. There is bilateral periorbital ecchymosis, EMS mentions they were called out to the house yesterday for a fall but they were unable to provide any other information about that. (LIZETT BARKER) - Related Data Allergies/Adverse Reactions: iodine [Iodine] Allergy (Severe, Verified 07/01/20 06:15) Sulfa (Sulfonamide Antibiotics) Allergy (Severe, Verified 07/01/20 06:15) Past Medical History - General Information source: [facility] Records Cannot obtain history due to: Intubated - Social History Smoking Status: Unknown if Ever Smoked Frequency of alcohol use: Heavy Family History: Reviewed & Not Pertinent, Arthritis, COPD, Other - Patient also reports family history of bladder "problems " Pulmonary Medical History: Reports: Hx Bronchitis - Asthmatic Broncitis occasionally, Hx COPD, Hx Pneumonia Neurological Medical History: Reports: Hx Migraine GI Medical History: Reports: Hx Hepatitis - Alcohol related Psychiatric Medical History: Reports: Hx Depression Infectious Medical History: Reports: Hx Hepatitis - Alcohol related Past Surgical History: Reports: Hx Hysterectomy, Hx Orthopedic Surgery - Ankle, Other - Possible left parotid gland removal - Immunizations Hx Diphtheria, Pertussis, Tetanus Vaccination: Yes Hx Pneumococcal Vaccination: 06/22/10 <LIZETT BARKER - Last Filed: 08/03/20 02:24> Review of Systems - Review of Systems -: Yes ROS unobtainable due to patient's medical condition <LIZETT BARKER P - Last Filed: 08/03/20 02:24> Physical Exam - General General appearance: Unresponsive In distress: Severe - HEENT Head: Other - Bilateral periorbital ecchymosis. Eyes: Other - Pupils are 4mm and sluggishly reactive. - Respiratory Respiratory status: Agonal respirations, Other - Alban Airway - Cardiovascular Rhythm: Regular Heart sounds: Normal auscultation Murmur: No - Abdominal Inspection: Obese Distension: No distension Bowel sounds: Normal - Extremities General upper extremity: Normal inspection. No: Edema General lower extremity: Normal inspection. No: Edema - Neurological Jacinto Coma Scale Eye Opening: None Jacinto Coma Scale Verbal: None Bourg Coma Scale Motor: None Bourg Coma Scale Total: 3 <LIZETT BARKER P - Last Filed: 08/03/20 02:24> - Vital signs Vitals: Pulse Ox 100 08/02/20 20:48 Course - Laboratory Result Diagrams: 08/02/20 21:40 08/02/20 21:40 <ARINA CALL - Last Filed: 08/02/20 22:10> - Laboratory Result Diagrams: 08/02/20 21:40 08/02/20 21:40 - Diagnostic Test Radiology reviewed: Image reviewed, Reports reviewed - NSR NL [place] [address] elevation with slight (1mm) st depression V4-6. <LIZETT BARKER P - Last Filed: 08/03/20 02:24> - Re-evaluation Re-evalutation: 08/03/20 02:19 MDM 54 year old female found down by father. No bystander CPR and EMS was called. They noted asystole and then V fib/ pulseless V tach after 2 epi. 150 mg amiodarone given, 1 amp bicarb and levophed initiated. Alban airway placed. Transported here without difficulty. After arrival here ETT placed and Right IJ line placed. Workup shows tiny SAH or interparenchyal hemorhage with hypokalemia. IV initiated and lab workup here is reviewed. I have discussed the pt with Dr. Jacqui Sarabia at [facility] and she has graciously accepted the pt in transfer to [facility]. We are awaiting help with transport. (LIZETT BARKER) - Vital Signs Vital signs: Temp Pulse Resp BP Pulse Ox 96.1 F L 17 121/62 100 08/02/20 22:01 08/02/20 22:01 08/02/20 22:01 08/03/20 00:00 - Laboratory Laboratory results interpreted by me: 08/02/20 08/02/20 08/02/20 20:53 21:07 21:29 RBC Hgb Hct MCV MCH Lymph % (Auto) [place] % (Auto) Seg Neutrophils % PT Carbonic Acid 1.00 L ABG pCO2 33.2 L ABG pO2 497.5 H ABG O2 Saturation 99.9 H Potassium Anion Gap BUN Glucose POC Glucose 143 H Lactic Acid Calcium Total Bilirubin Direct Bilirubin AST ALT Alkaline Phosphatase Total Protein Albumin Urine Protein 100 H Urine Glucose (UA) 50 H Urine Blood SMALL H Salicylates Acetaminophen 08/02/20 08/02/20 08/02/20 21:40 21:40 21:40 RBC 3.25 L Hgb 11.9 L Hct 34.8 L MCV 107 H MCH 36.6 H Lymph % (Auto) 7.8 L [place] % (Auto) 0.8 L Seg Neutrophils % 90.2 H PT 19.3 H Carbonic Acid ABG pCO2 ABG pO2 ABG O2 Saturation Potassium 2.7 L* Anion Gap 20 H BUN 4 L Glucose 126 H POC Glucose Lactic Acid Calcium 8.3 L Total Bilirubin 1.4 H Direct Bilirubin 0.8 H AST 463 H ALT 102 H Alkaline Phosphatase 240 H Total Protein 6.0 L Albumin 3.3 L Urine Protein Urine Glucose (UA) Urine Blood Salicylates < 1.0 L Acetaminophen < 10 L 08/03/20 00:00 RBC Hgb Hct MCV MCH Lymph % (Auto) [place] % (Auto) Seg Neutrophils % PT Carbonic Acid ABG pCO2 ABG pO2 ABG O2 Saturation Potassium Anion Gap BUN Glucose POC Glucose Lactic Acid 3.6 H Calcium Total Bilirubin Direct Bilirubin AST ALT Alkaline Phosphatase Total Protein Albumin Urine Protein Urine Glucose (UA) Urine Blood Salicylates Acetaminophen Procedures - Central Line Right Internal jugular Consent obtained: No - patient intubated Central line pre-insertion: Sterile PPE donned, Chloraprep applied, Sterile drapes applied Central line lumen type: Triple Ultrasound guided: Yes Line secured with sutures: Yes Central line post-insertion: Blood return from lumens, Biopatch applied, Sutured, Sterile dressing applied, Position confirmed w/ CXR Number of attempts: 1 Complications: No <ARINA CALL - Last Filed: 08/02/20 22:10> - Intubation Orotracheal Airway evaluation: Normal anatomy Mallampati Classification: Class 2 Medications: Other Blade type: Quintana Blade size: 4 ETT size: 7.5 ETT secured at: Teeth ETT secured at (cm): 22 <LIZETT BARKER P - Last Filed: 08/03/20 02:24> Critical Care Note - Critical Care Note Total time excluding time spent on procedures (mins): 60 <LIZETT BARKER P - Last Filed: 08/03/20 02:24> Discharge <ARINA CALL - Last Filed: 08/02/20 22:10> <LIZETT BARKER P - Last Filed: 08/03/20 02:24> - Discharge Clinical Impression: Cardiac arrest, SAH (subarachnoid hemorrhage) Rib fracture Qualifiers: Encounter type: initial encounter Rib fracture type: multiple ribs Fracture type: closed Laterality: unspecified laterality Qualified Code(s): S22.49XA - Multiple fractures of ribs, unspecified side, initial encounter for closed fracture Condition: Serious Disposition: [facility] Referrals: VINNY CHILEL FNP [Primary Care Provider] - Follow up as needed I personally performed the services described in the documentation, reviewed and edited the documentation which was dictated to the scribe in my presence, and it accurately records my words and actions.
[2020-08-02] MEDS ORDERED: MIDAZOLAM 2 MG/2 ML INJ IV ONE (21:41)
[2020-08-02 21:50] LABS: ARTERIAL BLOOD BASE EXCESS -3.9 mmol/L; ARTERIAL BLOOD HCO3 20.1 mmol/L (20-24); ARTERIAL BLOOD O2 SATURATION 99.9 % (94-98); ARTERIAL BLOOD PCO2 33.2 mmHg (35-45); ARTERIAL BLOOD PO2 497.5 mmHg (80-100); ARTERIAL BLOOD TOTAL CO2 21.1 mmol/L (21-25)
[2020-08-02] MEDS: NORMAL SALINE 1000 ML 1,000 ML IV PRN ×2 (21:50→23:48)
[2020-08-02 21:51] LABS: ARTERIAL BLOOD FIO2 ROOM AIR
[2020-08-02] MEDS ORDERED: DEXTROSE 5%-WATER 250 ML with NOREPINEPHRINE BITARTRATE 4 MG IV PRN ×2 (21:51)
[2020-08-02 21:54] LABS: ABSOLUTE EOSINOPHILS # (AUTO) 0.1 10^3/uL (0.0-0.6); ABSOLUTE LYMPHOCYTES (AUTO) 0.6 10^3/uL (0.5-4.7); ABSOLUTE MONOCYTES (AUTO) 0.1 10^3/uL (0.1-1.4); ABSOLUTE NEUT (AUTO) 7.4 10^3/uL (1.7-8.2); BASOPHILS % (AUTO) 0.2 % (0-2); HEMATOCRIT 34.8 % (36.0-47.0); HEMOGLOBIN 11.9 g/dL (12.0-15.5); LYMPHOCYTES % (AUTO) 7.8 % (13-45); MEAN CORPUSCULAR HEMOGLOBIN 36.6 pg (27.0-33.4); MEAN CORPUSCULAR HGB CONC 34.2 g/dL (32.0-36.0); MEAN CORPUSCULAR VOLUME 107 fl (80-97); MONOCYTES % (AUTO) 0.8 % (3-13); PLATELET COUNT 176 10^3/uL (150-450); RED BLOOD COUNT 3.25 10^6/uL (3.72-5.28); SEGMENTED NEUTROPHILS % (AUTO) 90.2 % (42-78); TOTAL CELLS COUNTED % (AUTO) 100 %; WHITE BLOOD COUNT 8.2 10^3/uL (4.0-10.5)
[2020-08-02] MEDS ORDERED: NOREPINEPHRINE BITARTRATE INJ/PF 4 MG/4 ML SDV IV ONE (21:59)
[2020-08-02 22:08] LABS: APPEARANCE,URINE SLIGHTLY-CLOUDY; BILIRUBIN,URINE NEGATIVE (NEGATIVE); COLOR,URINE YELLOW; GLUCOSE, URINE 50 mg/dL (NEGATIVE); KETONES,URINE NEGATIVE (NEGATIVE); LEUKOCYTE ESTERASE,URINE NEGATIVE (NEGATIVE); NITRITE,URINE NEGATIVE (NEGATIVE); PROTEIN,URINE 100 mg/dL (NEGATIVE); URINE SPECIFIC GRAVITY 1.005; UROBILINOGEN,URINE NEGATIVE mg/dL (<2.0)
[2020-08-02 22:13] LABS: INTERNATIONAL RATION (INR) 1.61; PROTHROMBIN TIME 19.3 SEC (11.4-15.4)
[2020-08-02 22:17] LABS: URINE AMPHETAMINES SCREEN NEGATIVE; URINE BARBITURATES SCREEN NEGATIVE; URINE BENZODIAZEPINES SCREEN NEGATIVE; URINE COCAINE SCREEN NEGATIVE; URINE METHADONE SCREEN NEGATIVE; URINE PHENCYCLIDINE SCREEN NEGATIVE
[2020-08-02 22:23] LABS: ALBUMIN 3.3 g/dL (3.5-5.0); ALKALINE PHOSPHATASE 240 U/L (38-126); ASPARTATE AMINO TRANSFERASE 463 U/L (14-36); BILIRUBIN,DIRECT 0.8 mg/dL (0.0-0.4); BILIRUBIN,TOTAL 1.4 mg/dL (0.2-1.3); BLOOD UREA NITROGEN 4 mg/dL (7-20); CALCIUM 8.3 mg/dL (8.4-10.2); CARBON DIOXIDE 23 mmol/L (22-30); CHLORIDE 99 mmol/L (98-107); CREATINE KINASE 112 U/L (30-135); GLUCOSE 126 mg/dL (75-110)
[2020-08-02 22:25] LABS: ACETAMINOPHEN < 10 ug/mL (10-30); ALCOHOL < 10 mg/dL (NONE DETECTED); SALICYLATE < 1.0 mg/dL (2.0-20.0)
[2020-08-02 22:28] LABS: POTASSIUM 2.7 mmol/L (3.6-5.0)
[2020-08-02 22:29] LABS: ANION GAP 20 (5-19)
[2020-08-02 22:30] LABS: URINE MARIJUANA (THC) SCREEN NEGATIVE
--- NOTE | 2020-08-02 22:33 | RADIOLOGY REPORT (SQ) ---
EXAM DESCRIPTION: XR CHEST 1 VIEW COMPLETED DATE/TME: 08/02/2020 21:50 CLINICAL HISTORY: 54 years, Female, ETT-NG-CL PLACEMENT COMPARISON: None. EXAM DESCRIPTION: CHEST SINGLE VIEW CLINICAL HISTORY: ETT-NG-CL PLACEMENT COMPARISON: None. FINDINGS: Single view of the chest is submitted. ET tube tip is approximately 1.5 vertebral levels above the tami. NG tube tip is below the lower edge of the radiograph with the proximal port above the GE junction. Central catheter tip is at the distal SVC. There is mild pulmonary edema. Heart size is normal. Poorly defined consolidation is seen at the left medial lung base. IMPRESSION: Subtle consolidation at the left lung base..
[2020-08-02] MEDS: POTASSI CL 20 MEQ/50 ML RIDER 20 MEQ/50 ML RTUPB IV SCH (23:05)
[2020-08-02] MEDS ORDERED: PIPERACILLIN/TAZOBACTAM 3.375 GM VIAL IV ONE (23:46)
--- NOTE | 2020-08-03 | RADIOLOGY REPORT (SQ) ---
EXAM DESCRIPTION: CT HEAD WITHOUT IV CONTRAST COMPLETED DATE/TME: 08/02/2020 23:39 CLINICAL HISTORY: fall/ arrest COMPARISON: None available TECHNIQUE: Axial CT of the head obtained from the skull apex to the skull base without contrast. FINDINGS: Curvilinear hyperdense focus in the right periventricular white matter which is only appreciated on coronal and sagittal reformatted images, best seen on images #35 and 36, series #401. This may represent a subtle focus of intraparenchymal or subarachnoid hemorrhage. No mass, mass effect, shift of the midline, or CT evidence of acute ischemic change identified. The ventricular system and sulcal spaces are not enlarged. Scattered areas of hypodensity throughout the supratentorial white matter are nonspecific and may be related to chronic small vessel ischemic change. Polypoid mucosal thickening of the bilateral maxillary sinuses. No skull fracture identified. Visualized orbits and globes are unremarkable. Atherosclerotic calcification of the intracranial internal carotid arteries. Partial visualization of endotracheal tube and NG tube. IMPRESSION: 1. Single curvilinear focus of hyperdensity in the right periventricular white matter best seen on image #35 and 36, series #4 a 1. This may represent a subtle focus of intraparenchymal or subarachnoid hemorrhage. Alternatively, as this is not identified on axial imaging artifact is a possibility. Short interval follow-up CT could provide additional characterization. This exam was performed according to our departmental dose-optimization program, which includes automated exposure control, adjustment of the mA and/or kV according to patient size and/or use of iterative reconstruction technique.
[2020-08-03] MEDS: PROPOFOL 1,000 MG/100 ML INFUS..BTL IV PRN ×3 (00:02→00:27)
--- NOTE | 2020-08-03 00:02 | RADIOLOGY REPORT (SQ) ---
EXAM DESCRIPTION: CT CERVICAL SPINE WITHOUT IV CONTRAST COMPLETED DATE/TME: 08/02/2020 23:39 CLINICAL HISTORY: fall/ arrest COMPARISON: None available TECHNIQUE: Axial CT of the cervical spine obtained without contrast. FINDINGS: Alignment of the cervical spine is maintained without evidence of subluxation. The atlantoaxial, atlantodental, and occipitoatlantal intervals are preserved. No fracture identified. Vertebral body height preserved. Prevertebral soft tissues are unremarkable. Mild to moderate multilevel loss of intervertebral disc height with endplate spondylosis, facet arthropathy, and uncovertebral spurring. Visualized skull base is intact. No fracture of the visualized facial bones. Visualized mastoid air cells and paranasal sinuses are well aerated. Visualized thyroid is unremarkable. No cervical lymphadenopathy. No pneumothorax in the visualized lung apices. Partial visualization of endotracheal tube and NG tube. IMPRESSION: 1. No acute fracture or subluxation of the cervical spine. 2. Multilevel degenerative change of the cervical spine. This exam was performed according to our departmental dose-optimization program, which includes automated exposure control, adjustment of the mA and/or kV according to patient size and/or use of iterative reconstruction technique.
--- NOTE | 2020-08-03 00:04 | RADIOLOGY REPORT (SQ) ---
EXAM DESCRIPTION: CT MAXILLOFACIAL WITHOUT IV CONTRAST COMPLETED DATE/TME: 08/02/2020 23:39 CLINICAL HISTORY: falls/pain COMPARISON: None available TECHNIQUE: Axial CT of the facial bone obtained without contrast. Coronal and sagittal reformatted images available. FINDINGS: Orbits: Orbital floors and mayorga are intact. Intraorbital contents: The globes are intact. Extraocular muscles are symmetric. No intraconal fat stranding. Nasal bones: Intact. Maxilla: The maxillary hard palate is intact. Maxillary antral mayorga are intact. Sinuses: Polypoid mucosal thickening of the maxillary sinuses. Zygomatic processes: Intact Pterygoid plates: Intact Mandible: Intact. No mandibular condylar dislocation. Skull base/cervical spine: Visualized portions of the skull base and cervical spine are intact. Visualized mastoid air cells are well aerated. Subcutaneous soft tissues: Minimal subcutaneous soft tissue contusion within the left facial soft tissues overlying the zygomatic process. Minimal contusion in the right frontal subcutaneous soft tissues. Neck soft tissues: No definite abnormality involving the nasopharynx, oropharynx, or hypopharynx. Fossa of Rosenmuller are clear. Parotid glands and submandibular glands are unremarkable. No cervical lymphadenopathy. Partial visualization of NG tube and endotracheal tube. IMPRESSION: 1. No acute facial bone fracture identified. This exam was performed according to our departmental dose-optimization program, which includes automated exposure control, adjustment of the mA and/or kV according to patient size and/or use of iterative reconstruction technique.
--- NOTE | 2020-08-03 00:15 | RADIOLOGY REPORT (SQ) ---
EXAM DESCRIPTION: CT CHEST WITH IV CONTRAST COMPLETED DATE/TME: 08/02/2020 23:39 CLINICAL HISTORY: cardiac arrest. CREAT 0.76 COMPARISON: None Available. TECHNIQUE: CT of the chest obtained following the uncomplicated intravenous administration of 80 mL Omnipaque 350. 3-D/MIP reformatted images of the chest available for evaluation. FINDINGS: Chest: Pulmonary arteries: No large central filling defect. Thyroid:No abnormalities of the visualized thyroid. Great Vessels:Great vessels have normal anatomic configuration. Thoracic Aorta:No abnormalities of the thoracic aorta identified. Heart:No cardiomegaly, significant pericardial effusion, or coronary artery atherosclerosis Lymph Nodes:No enlarged mediastinal lymph nodes identified. Esophagus: NG tube with tip in the stomach. Other:No additional findings. Lungs: No confluent airspace consolidation. Minimal bilateral dependent atelectasis. Pleura:No pleural effusion or pneumothorax. Trachea/Airways: Endotracheal tube terminating above the tami. Right IJ central venous catheter with tip in the SVC. Bones: Minimal endplate spondylosis of the spine. Acute nondisplaced fractures of the anterior fourth ribs. Age-indeterminate likely healed fractures of the lateral left eighth and ninth ribs. Upper Abdomen:Limited images of the upper abdomen demonstrate no definite abnormalities of visualized portions of the pancreas, spleen, adrenal glands, or kidneys. Hepatomegaly and hepatic steatosis. IMPRESSION: 1. No acute pneumonic process identified. 2. Nondisplaced fractures of the anterior fourth ribs. 3. Hepatomegaly and hepatic steatosis. This exam was performed according to our departmental dose-optimization program, which includes automated exposure control, adjustment of the mA and/or kV according to patient size and/or use of iterative reconstruction technique.
[2020-08-03] MEDS: POTASSI CL 20 MEQ/50 ML RIDER 20 MEQ/50 ML RTUPB IV SCH (00:20)
[2020-08-03] MEDS ORDERED: MIDAZOLAM 2 MG/2 ML INJ IV ONE ×2 (00:25→03:06)
[2020-08-03] MEDS ORDERED: METOPROLOL TARTRATE PF/INJ 5 MG/5 ML SDV IV ONE (00:31)
[2020-08-03] MEDS ORDERED: MIDAZOLAM HCL 50 MG/100 ML RTUINJ IV PRN (00:55)
[2020-08-03] MEDS ORDERED: PIPERACILLIN/TAZOBACTAM 3.375 GM VIAL IV ONE (02:14)
[2020-08-03] MEDS ORDERED: LEVETIRACETAM 1000 MG/NACL-ISO 1,000 MG/100 ML RTUPB IV ONE (03:06)
[2020-08-03 03:40] LABS: ARTERIAL BLOOD BASE EXCESS 0.7 mmol/L; ARTERIAL BLOOD HCO3 23.9 mmol/L (20-24); ARTERIAL BLOOD O2 SATURATION 99.6 % (94-98); ARTERIAL BLOOD PCO2 33.3 mmHg (35-45); ARTERIAL BLOOD PH 7.47 (7.35-7.45); ARTERIAL BLOOD PO2 253.1 mmHg (80-100); ARTERIAL BLOOD TOTAL CO2 24.9 mmol/L (21-25)
[2020-08-03 03:41] LABS: ARTERIAL BLOOD FIO2 50%
[2020-08-03 04:33] VITALS: BP 126/103
--- NOTE | 2020-08-04 00:32 | EKG REPORT ---
SEVERITY:- ABNORMAL ECG - SINUS RHYTHM FIRST DEGREE AV BLOCK NONSPECIFIC REPOL ABNORMALITY, DIFFUSE LEADS : Confirmed by: Katherine Donovan 04-Aug-2020 00:31:12
== END 2020-08-03 04:05 | disposition short-term general hospital (02) ==
LOC: ER 20:48
DX: I46.9 Cardiac arrest, cause unspecified (principal); S06.6X9A Traumatic subarachnoid hemorrhage with loss of consciousness of unspecified duration, initial encounter; S22.49XA Multiple fractures of ribs, unspecified side, initial encounter for closed fracture; S00.12XA Contusion of left eyelid and periocular area, initial encounter; S00.11XA Contusion of right eyelid and periocular area, initial encounter; W19.XXXA Unspecified fall, initial encounter; Y92.009 Unspecified place in unspecified non-institutional (private) residence as the place of occurrence of the external cause; E87.6 Hypokalemia; J44.9 Chronic obstructive pulmonary disease, unspecified; Z88.2 Allergy status to sulfonamides
CPT/HCPCS: 93005; 99285; 96361; 96375; 96365; 96366; 96367; 96368; 36415; 82962; 80307 ×4; 82803; 82550; 83605; 83690; 83735; 84478; 84703; 85025; 85610; 81025; 80053; 81001; 84484; 71045; 70450; 70486; 71260; 72125; 94660; 93010; 36600; 31500; 36556; J2250 ×3; J2704; J3490 ×3; J3480 ×2; J7060; J7030 ×2; J1953; J2543